=== PATIENT | female | born 1935 | race Caucasian/White ===

== ENCOUNTER → 2018-02-23 14:14 | Outpatient (CLI) | payer MEDICARE, BC, SELFPAY ==
--- NOTE | 2018-02-23 14:21 | DI.RAD.S_ITS ---
PROCEDURE: XR FOOT RT MIN 3V INDICATIONS: ankle pain TECHNIQUE: 3 views of the foot were acquired. COMPARISON: [facility], CR, XR ANKLE RT MIN 3V, 02/23/2018, 13:58. FINDINGS: Bones: No fractures or dislocations. No suspicious bony lesions. Plantar calcaneal spurring. First MTP joint degeneration. 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 Soft tissues: No tibiotalar joint effusion. Achilles tendon appears normal. IMPRESSION: Degenerative changes as above, most pronounced at the second toe PIP joint. Plantar calcaneal spur. Dictated by: Kavon Wilson M.D. on 02/23/2018 at 16:02 Approved by: Kavon Wilson M.D. on 02/23/2018 at 16:18
--- NOTE | 2018-02-23 14:21 | DI.RAD.S_ITS ---
PROCEDURE: XR ANKLE RT MIN 3V INDICATIONS: ankle pain TECHNIQUE: 3 views of the ankle were acquired. COMPARISON: None. FINDINGS: Bones: No fractures or dislocations. Ankle mortise is normally aligned. No suspicious bony lesions. Plantar calcaneal spur. There is also mild diffuse midfoot degenerative spurring. Soft tissues: No tibiotalar joint effusion. Achilles tendon appears normal. IMPRESSION: Plantar calcaneal spur. Dictated by: Kavon Wilson M.D. on 02/23/2018 at 16:18 Approved by: Kavon Wilson M.D. on 02/23/2018 at 16:19
[2018-02-23 15:39] LABS: Vitamin D 25 Hydroxy (D3) 61.4 ng/mL (30.0-100.0)
[2018-02-27 14:16] LABS: Ionized Calcium 5.6 mg/dL (4.8-5.6)
== END ==
PROVIDERS: Family Provider Family Medicine; PCP Family Medicine; Visit Provider Family Medicine
DX: M81.0 Age-related osteoporosis without current pathological fracture (principal); E67.8 Other specified hyperalimentation; M25.579 Pain in unspecified ankle and joints of unspecified foot
CPT/HCPCS: 73610; 73630; 82306; 82330

== ENCOUNTER → 2018-04-17 10:34 | Outpatient (CLI) | payer MEDICARE, BC, SELFPAY ==
[2018-04-17 11:49] LABS: BUN Creatinine Ratio 27.8 (6-22); Blood Urea Nitrogen 25 mg/dL (7-17); Calcium 10.5 mg/dL (8.4-10.2); Carbon Dioxide 36 mmol/L (22-32); Chloride 103 mmol/L (98-107); Cholesterol 148 mg/dL (140-199); Estimated Glomerular Filt Rate 59.9 mL/min (>60); Glucose 81 mg/dL (80-110); HDL Cholesterol 43 mg/dL (40-60); HEMOLYSIS < 15 (0-50); LDL Cholesterol Calculated 90 mg/dL (<100); Sodium 146 mmol/L (137-145); Triglycerides 73 mg/dL (35-150)
[2018-04-17 15:45] LABS: Microalbumin Urine Random 1.2 mg/dL (0-1.6)
== END ==
PROVIDERS: Family Provider Family Medicine; PCP Family Medicine; Visit Provider Family Medicine
DX: E21.3 Hyperparathyroidism, unspecified (principal); I10 Essential (primary) hypertension; I48.91 Unspecified atrial fibrillation; M81.0 Age-related osteoporosis without current pathological fracture
CPT/HCPCS: 36415; 80048; 80061; 82043; 82570

== ENCOUNTER → 2019-04-04 14:17 | Outpatient (CLI) | payer MEDICARE, BC, SELFPAY ==
[2019-04-04 15:09] LABS: Add Manual Diff / Slide Review NO; Basophils Absolute Auto 100 /uL (0-100); Eosinophils Absolute Auto 200 /uL (0-450); Eosinophils Percent Auto 2.9 % (2-4); Hematocrit 38.8 % (36-46); Lymphocytes Absolute Auto 1400 /uL (1100-4500); Lymphocytes Percent Auto 27.5 % (25-40); Mean Corpuscular HGB Conc 33.5 % (30-36); Mean Corpuscular Hemoglobin 29.6 PG (26-34); Mean Corpuscular Volume 88.4 fL (80-100); Monocytes Absolute Auto 600 /uL (0-900); Monocytes Percent Auto 11.2 % (3-14); Neutrophils Absolute Auto 3000 /uL (1500-7000); Neutrophils Percent Auto 57.4 % (50-75); Platelet Count 225 X10^3/uL (150-400); Red Cell Distribution Width 13.9 % (11.6-14.8); White Blood Cell Count 5.2 X10^3/uL (4.5-11.0)
[2019-04-04 15:19] LABS: Alanine Aminotransferase 24 IU/L (9-52); Albumin 4.7 g/dL (3.5-5.0); Albumin Globulin Ratio 1.4 (1.0-2.8); Alkaline Phosphatase 34 U/L (38-126); Aspartate Aminotransferase 38 IU/L (14-36); Bilirubin Total 0.6 mg/dL (0.2-1.3); Blood Urea Nitrogen 31 mg/dL (7-17); Calcium 10.7 mg/dL (8.4-10.2); Carbon Dioxide 32 mmol/L (22-32); Chloride 99 mmol/L (98-107); Globulin 3.3 g/dL (1.7-4.1); Glucose 98 mg/dL (80-110); HEMOLYSIS < 15 (0-50); Phosphorous 3.2 mg/dL (2.8-4.1); Potassium 3.8 mmol/L (3.4-5.1); Sodium 142 mmol/L (137-145)
[2019-04-04 19:56] LABS: Vitamin D 25 Hydroxy (D3) 63.4 ng/mL (30.0-100.0)
== END ==
PROVIDERS: PCP Family Medicine; Visit Provider Family Medicine
DX: E83.52 Hypercalcemia (principal); I10 Essential (primary) hypertension
CPT/HCPCS: 36415; 80053; 82306; 82330; 83970; 84100; 85025

== ENCOUNTER → 2019-04-25 14:46 | Outpatient (CLI) | payer MEDICARE, BC, SELFPAY ==
[2019-04-25 17:32] LABS: TSH w/ Reflex to FT4 2.93 uIU/mL (0.47-4.68)
[2019-04-29 15:45] LABS: 1 25 Dihydroxy Vitamin D 46 pg/mL (18-72)
== END ==
PROVIDERS: PCP Family Medicine; Visit Provider Family Medicine
DX: E83.52 Hypercalcemia (principal)
CPT/HCPCS: 36415; 82397; 82652; 84443

== ENCOUNTER → 2019-05-02 12:16 | Outpatient (CLI) | payer MEDICARE, BC, SELFPAY ==
[2019-05-02 15:18] LABS: Collection Time Urine 24 Hours; Creatinine 24 Hour Urine 446 mg/day (800-1800); Creatinine Urine Random 71.4 mg/dL; Total Volume Urine 625 mL
[2019-05-02 15:27] LABS: Calcium 24 Hour Urine 74 mg/day (100-300); Calcium Urine Random 11.8; Collection Time Urine 24 Hours; Total Volume Urine 625 mL
== END ==
PROVIDERS: PCP Family Medicine; Visit Provider Family Medicine
DX: E83.52 Hypercalcemia (principal)
CPT/HCPCS: 82340; 82570

== ENCOUNTER → 2019-10-04 13:08 | Outpatient (CLI) | payer MEDICARE, BC, SELFPAY ==
[2019-10-04 14:41] LABS: Alanine Aminotransferase 19 IU/L (<35); Albumin 4.6 g/dL (3.5-5.0); Albumin Globulin Ratio 1.5 (1.0-2.8); Alkaline Phosphatase 35 U/L (38-126); Aspartate Aminotransferase 40 IU/L (14-36); Bilirubin Total 0.5 mg/dL (0.2-1.3); Blood Urea Nitrogen 27 mg/dL (7-17); Calcium 10.8 mg/dL (8.4-10.2); Carbon Dioxide 29 mmol/L (22-32); Chloride 104 mmol/L (98-107); Globulin 3.1 g/dL (1.7-4.1); Glucose 87 mg/dL (80-110); HEMOLYSIS < 15 (0-50); Potassium 4.1 mmol/L (3.4-5.1); Sodium 143 mmol/L (137-145); Total Protein 7.7 g/dL (6.3-8.2)
[2019-10-04 15:25] LABS: Microalbumi Creatinin Ratio Ur 164.5 ug/mg CR (<30); Microalbumin Urine Random 7.9 mg/dL (0-1.6)
[2019-10-07 21:06] LABS: Albumin 4.5 g/dL (3.8-4.8); Alpha 1 Globulin 0.3 g/dL (0.2-0.3); Alpha 2 Globulin 0.6 g/dL (0.5-0.9); Beta 1 Globulin 0.5 g/dL (0.4-0.6); Protein, Total 7.2 g/dL (6.1-8.1)
[2019-10-08 15:14] LABS: Vitamin A 85 mcg/dL (38-98)
[2019-10-09 19:31] LABS: Albumin 66 %; Protein/ Creatinine Ratio 432 mg/g creat (21-161); Total Urine Protein 19 mg/dL (5-24); Urine Creatinine, Random 44 mg/dL (20-275)
== END ==
PROVIDERS: PCP Family Medicine; Referring Provider Family Medicine; Visit Provider Family Medicine
DX: M81.0 Age-related osteoporosis without current pathological fracture (principal); Z78.0 Asymptomatic menopausal state; I10 Essential (primary) hypertension; E21.3 Hyperparathyroidism, unspecified
CPT/HCPCS: 36415; 77080; 80053; 82043; 82570; 84155; 84156; 84165; 84166; 84590

== ENCOUNTER → 2020-03-20 14:39 | Outpatient (CLI) | payer MEDICARE, BC, SELFPAY ==
[2020-03-20 16:12] LABS: BUN Creatinine Ratio 28.2 (6-22); Blood Urea Nitrogen 33 mg/dL (7-17); Carbon Dioxide 31 mmol/L (22-32); Chloride 103 mmol/L (98-107); Estimated Glomerular Filt Rate 44.1 mL/min (>60); Glucose 88 mg/dL (80-110); HEMOLYSIS < 15 (0-50); Potassium 4.2 mmol/L (3.4-5.1); Sodium 142 mmol/L (137-145)
== END ==
PROVIDERS: PCP Family Medicine; Referring Provider Family Medicine; Visit Provider Family Medicine
DX: R60.0 Localized edema (principal)
CPT/HCPCS: 36415; 80048

== ENCOUNTER 2020-04-14 11:37 | Inpatient (IN) | payer MEDICARE, BC, SELFPAY ==
[2020-04-14] VITALS (38 sets, daily range): BP systolic 133–203; BP diastolic 65–97; PULSE 63–102; RESP 9–32; TEMP 36–36.8; O2SAT 92–100; BMI 22.5
--- NOTE | 2020-04-14 11:44 | DI.RAD.S_ITS ---
PROCEDURE: XR CHEST 1V INDICATIONS: chest pain TECHNIQUE: One view of the chest was acquired. COMPARISON: [facility], CT, PE STUDY (CTA CHEST), 09/20/2016, 13:02. [facility], CR, CHEST 1 VIEW, 04/06/2017, 20:57. [facility], CR, CHEST 1 VIEW, 09/19/2016, 16:37. FINDINGS: Surgical changes and devices: None. Lungs and pleura: Lungs are abnormal with what appears to be lung base atelectasis associated with a very large gas-filled presumed hiatal hernia behind the heart. No pleural effusions or pneumothorax. Mediastinum: Mediastinal contours appear normal. Heart size is normal. Bones and chest wall: No suspicious bony lesions. Overlying soft tissues appear unremarkable. IMPRESSION: A large gas-filled structure is present superimposed on the lower chest area bilaterally, measuring up to 17.6 cm transverse and 10.0 cm craniocaudad. By appearance this likely is a very large hiatal hernia that is gas filled. Presence or absence of volvulus or outlet obstruction is not established by this single frontal view. CT scanning may be warranted. Dictated by: Ulises Michel M.D. on 04/14/2020 at 13:10 Approved by: Ulises Michel M.D. on 04/14/2020 at 13:11
--- NOTE | 2020-04-14 11:52 | ED_ITS ---
HPI - Abdominal Pain General Chief Complaint: Abdominal Pain Stated Complaint: n/v and abd pain. Time Seen by Provider: 04/14/20 11:44 Source: patient and EMS Mode of arrival: EMS Limitations: no limitations History of Present Illness HPI narrative: Patient is 85-year-old female who presents with chest pain and nausea and vomiting. She said she was feeling well yesterday which to her son's house for dinner which she started not feeling well and feeling nauseated. She then continued to throw up multiple times. She has pain radiating into her chest and now around her left breast area. She does have a history of esophagus problem which she is not sure what it is but she says this feels different. She denies any shortness of breath. No prior history of coronary artery disease, but has had a NSTEMI in the past.She is noted to be quite hypertensive. Related Data Home Medications Medication Instructions Recorded Confirmed polyethylene glycol 3350 [Miralax] 17 gm PO QDAY PRN #0 05/03/11 04/14/20 alprazolam [Xanax] 0.25 mg PO BID PRN 04/14/20 04/14/20 furosemide 20 mg PO DAILY 04/14/20 04/14/20 Previous Rx's Medication Instructions Recorded Disabled Parking Permit ea TD QDAU #1 02/24/17 aspirin 81 mg tablet,delayed 81 mg PO DAILY #90 tab 02/23/18 release loratadine-pseudoephedrine ER 10 1 tab PO DAILY #90 tab 02/23/18 mg-240 mg tablet,extended [id number] multivitamin 1 tab PO DAILY #90 tab 02/23/18 sodium chloride 0.65 % nasal spray 1 spray NASAL ONCE #60 ml 02/23/18 aerosol fenofibrate micronized 67 mg 67 mg PO QDAY #90 tab 12/16/19 capsule losartan 50 mg tablet 25 mg PO DAILY #90 tab 01/14/20 omeprazole 40 mg capsule,delayed 40 mg PO QDAY #90 cap 01/21/20 release Allergies Allergy/AdvReac Type Severity Reaction Status Date / Time codeine [CODEINE] Allergy Mild vomiting Verified 04/14/20 12:04 formaldehyde [FORMALDEHYDE] Allergy Mild puffy Verified 04/14/20 12:04 eyes, blurred vision latex [LATEX] Allergy Mild rash Verified 04/14/20 12:04 morphine [MORPHINE] Allergy Mild vomiting Verified 04/14/20 12:04 Review of Systems Review of Systems ROS Unobtainable: All systems reviewed & are unremarkable except as noted in HPI and below Constitutional Constitutional: Denies chills, Denies fever(s), Denies lethargy and Denies weakness ENT Ears, Nose, Mouth, and Throat: Denies dizziness Cardiovascular Cardiovascular: Reports as per HPI, Reports chest pain, Denies diaphoresis, Denies syncope, Denies dyspnea and Denies dyspnea on exertion Respiratory Respiratory: Denies dyspnea and Denies dyspnea on exertion Gastrointestinal Gastrointestinal: Reports abdominal pain, Reports nausea and Reports vomiting Musculoskeletal Musculoskeletal: Denies back pain Integumentary/Breasts Skin/Breast: Denies pruritus, Denies erythema, Denies rash and Denies wounds Neurologic Neurologic: Denies dizziness, Denies syncope and Denies weakness 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) Osteoarthritis (Chronic ~1994) Osteopenia (Chronic ~1994) Osteoporosis (Chronic 2007) Parathyroid disease (Resolved 2007) Recurrent sinusitis (Chronic) Scarlet fever (Resolved) Scoliosis (Chronic) Shoulder pain (Chronic 2014) Tinnitus (Chronic) Vertigo (Chronic) Surgical History Anesthesia complication (Resolved) History of cataract removal with insertion of prosthetic lens (Resolved 2011) History of cataract removal with insertion of prosthetic lens (Resolved 2012) History of salpingectomy (Resolved) Status post breast reduction (Resolved 1999) Status post bunionectomy (Resolved 1992) Status post parathyroidectomy (Resolved 2007) Status post parathyroidectomy (Resolved 2009) Family History Brother Cancer Father No problems noted. Mother TB (tuberculosis) Social History household members: spouse Smoking Status: Never smoker Smoking Status: Never smoker alcohol intake frequency: 0-2 drinks per day Substance Use Type: does not use Exam Initial Vital Signs Initial Vital Signs: Vital Signs Temperature 98.3 F 04/14/20 11:40 Pulse Rate 91 H 04/14/20 11:40 Respiratory Rate 24 04/14/20 11:40 Blood Pressure 201/93 H 04/14/20 11:40 Pulse Oximetry 96 04/14/20 11:40 GENERAL: Thin elderly female no acute distress and in no acute distress. HEENT: Head atraumatic,EOMI, pupils reactive, face symmetric, moist mucous membranes CARDIOVASCULAR: Regular rate and rhythm without murmurs, rubs or gallops. Pain is not reproducible on left side of chest RESPIRATORY: Breath sounds equal bilaterally, no wheezes rales or rhonchi. ABDOMEN: Soft, mild epigastric tenderness no right upper quadrant pain EXTREMITIES: Normal range of motion, no clubbing or edema. Neurovascularly intact NEUROLOGICAL: Alert and oriented x4.Normal gait and speech. Cranial nerves II through XII grossly intact. SKIN: Warm, dry, no laceration, no petechiae, no rashes or lesions. Course Orders Ordered: ED Orders 04/14/20 11:44 XR chest 1V Stat 04/14/20 11:50 Complete Blood Count AUTO DIFF Stat Comprehensive Metabolic Panel Stat Lipase Stat Partial Thromboplastin Time Stat Prothrombin Time INR Stat Troponin & CK Cardiac Panel Stat 04/14/20 11:52 US abdomen limited Stat 04/14/20 11:54 EKG-12 Lead Stat 04/14/20 13:01 CT angio chest abdomen pelvis Stat 04/14/20 13:54 Troponin I Stat Benzocaine (Cepacol Lozenge) 1 each PO PRN PRN PRN Reason: Sore Throat Fentanyl (Sublimaze) 0 mcg IV Q5M PRN PRN Reason: Pain, Moderate (4-6) Hydromorphone HCl (Dilaudid) 0.5 mg IV Q6HR PRN PRN Reason: Pain, Moderate (4-6) Sodium Chloride (Normal Saline 0.9%) 1,000 mls @ 150 mls/hr IV CONT DARY Last Infusion: 04/14/20 15:03 Dose: 0 mls/hr Documented by: Admin: 04/14/20 12:50 Dose: 150 mls/hr Documented by: HECTOR Sodium Chloride (Normal Saline 0.9%) 1,000 mls @ 100 mls/hr IV CONT DARY Lactated Ringer's (Lactated Ringers) 1,000 mls @ 42 mls/hr IV CONT DARY Last Admin: 04/14/20 15:23 Dose: 42 mls/hr Documented by: DIONICIO Naloxone HCl (Narcan) 0.2 mg IV Q2MIN PRN PRN Reason: Opiate Reversal Ondansetron HCl (Zofran) 4 mg IV Q8HR PRN PRN Reason: Nausea And Vomiting Ondansetron HCl (Zofran) 4 mg IV NOW PRN PRN Reason: Nausea And Vomiting Discontinued Medications Hydromorphone HCl (Dilaudid) 0.5 mg IV NOW ONE Stop: 04/14/20 12:36 Last Admin: 04/14/20 12:49 Dose: 0.5 mg Documented by: HECTOR Hydromorphone HCl (Dilaudid) 0.5 mg IV NOW ONE Stop: 04/14/20 14:38 Last Admin: 04/14/20 14:46 Dose: 0.5 mg Documented by: SHAI Piperacillin/Tazobactam/Dextrose (Zosyn) 3.375 gm in 50 mls @ 100 mls/hr IV NOW ONE Stop: 04/14/20 15:35 Metoclopramide HCl (Reglan) 5 mg IV NOW ONE Stop: 04/14/20 13:03 Last Admin: 04/14/20 13:22 Dose: 5 mg Documented by: ABDI Nitroglycerin (Nitrostat) 0.4 mg SL NOW ONE Stop: 04/14/20 11:45 Last Admin: 04/14/20 12:05 Dose: 0.4 mg Documented by: HECTOR Ondansetron HCl (Zofran) 4 mg IV NOW ONE Stop: 04/14/20 12:32 Last Admin: 04/14/20 12:50 Dose: 4 mg Documented by: HECTOR Pantoprazole Sodium (Protonix) 40 mg IV NOW ONE Stop: 04/14/20 13:03 Last Admin: 04/14/20 13:22 Dose: 40 mg Documented by: ABDI Vital Signs Vital signs: Vital Signs - 8 hr 04/14/20 11:40 04/14/20 11:41 04/14/20 11:45 Temperature 98.3 F Pulse Rate 91 H 91 H 90 Respiratory Rate 24 16 15 Blood Pressure 203/93 H 201/93 H Pulse Oximetry 96 97 96 04/14/20 12:00 04/14/20 12:05 04/14/20 12:08 Temperature Pulse Rate 91 H 93 H 94 H Respiratory Rate 29 H 31 H Blood Pressure 202/97 H 202/97 H 199/94 H Pulse Oximetry 97 99 04/14/20 12:15 04/14/20 12:27 04/14/20 12:30 Temperature Pulse Rate 91 H 92 H 91 H Respiratory Rate 26 H 30 H 27 H Blood Pressure 202/89 H 178/76 H 193/86 H Pulse Oximetry 97 98 97 04/14/20 12:45 04/14/20 13:00 04/14/20 13:30 Temperature Pulse Rate 86 91 H 86 Respiratory Rate 22 24 30 H Blood Pressure 192/90 H 171/68 H Pulse Oximetry 97 96 96 04/14/20 14:00 04/14/20 14:29 04/14/20 14:30 Temperature Pulse Rate 98 H 102 H 101 H Respiratory Rate 19 19 19 Blood Pressure 195/89 H 177/97 H Pulse Oximetry 97 100 97 MDM - Abdominal Pain Lab Data Attestation: I reviewed the patient's lab results. Result diagrams: 04/14/20 11:50 04/14/20 11:50 Labs: Lab Results 04/14/20 04/14/20 04/14/20 Range/Units 11:50 11:50 11:50 WBC 10.6 (4.5-11.0) X10^3/uL RBC 4.36 (4.0-5.2) X10^6/uL Hgb 12.8 (12.0-16.0) g/dL Hct 38.9 (36-46) % MCV 89.3 (80-100) fL MCH 29.3 (26-34) PG MCHC 32.8 (30-36) % RDW 13.9 (11.6-14.8) % Plt Count 214 (150-400) X10^3/uL Neut % (Auto) 89.5 H (50-75) % Lymph % (Auto) 6.4 L (25-40) % [place] % (Auto) 3.8 (3-14) % Eos % (Auto) 0.1 L (2-4) % Baso % (Auto) 0.2 (0-2) % Neut # (Auto) 9500 H (4012-2655) /uL Lymph # (Auto) 700 L (8458-9070) /uL [place] # (Auto) 400 (0-900) /uL Eos # (Auto) 0 (0-450) /uL Baso # (Auto) 0 (0-100) /uL PT 11.9 (10.1-12.7) SECONDS INR 1.0 (0.9-1.3) APTT 32 (26.4-36.2) SECONDS Sodium 144 (137-145) mmol/L Potassium 3.2 L (3.4-5.1) mmol/L Chloride 104 (98-107) mmol/L Carbon Dioxide 28 (22-32) mmol/L BUN 23 H (7-17) mg/dL Creatinine 0.72 (0.52-1.04) mg/dL Estimated GFR > 60.0 (>60) mL/min BUN/Creatinine Ratio 31.9 H (6-22) Glucose 152 H (80-110) mg/dL Calcium 11.1 H (8.4-10.2) mg/dL Total Bilirubin 0.7 (0.2-1.3) mg/dL AST 44 H (14-36) IU/L ALT 23 (<35) IU/L Alkaline Phosphatase 51 (38-126) U/L Total Creatine Kinase 90 (30-135) U/L CK-MB (CK-2) TNP CK-MB (CK-2) Rel Index TNP Troponin I 0.017 (0.01-0.034) ng/mL Total Protein 8.8 H (6.3-8.2) g/dL Albumin 5.2 H (3.5-5.0) g/dL Globulin 3.6 (1.7-4.1) g/dL Albumin/Globulin Ratio 1.4 (1.0-2.8) Lipase 146 (23-300) U/L COVID-19 PCR (Negative) 04/14/20 04/14/20 Range/Units 13:50 13:54 WBC (4.5-11.0) X10^3/uL RBC (4.0-5.2) X10^6/uL Hgb (12.0-16.0) g/dL Hct (36-46) % MCV (80-100) fL MCH (26-34) PG MCHC (30-36) % RDW (11.6-14.8) % Plt Count (150-400) X10^3/uL Neut % (Auto) (50-75) % Lymph % (Auto) (25-40) % [place] % (Auto) (3-14) % Eos % (Auto) (2-4) % Baso % (Auto) (0-2) % Neut # (Auto) (1722-8625) /uL Lymph # (Auto) (0593-3565) /uL [place] # (Auto) (0-900) /uL Eos # (Auto) (0-450) /uL Baso # (Auto) (0-100) /uL PT (10.1-12.7) SECONDS INR (0.9-1.3) APTT (26.4-36.2) SECONDS Sodium (137-145) mmol/L Potassium (3.4-5.1) mmol/L Chloride (98-107) mmol/L Carbon Dioxide (22-32) mmol/L BUN (7-17) mg/dL Creatinine (0.52-1.04) mg/dL Estimated GFR (>60) mL/min BUN/Creatinine Ratio (6-22) Glucose (80-110) mg/dL Calcium (8.4-10.2) mg/dL Total Bilirubin (0.2-1.3) mg/dL AST (14-36) IU/L ALT (<35) IU/L Alkaline Phosphatase (38-126) U/L Total Creatine Kinase (30-135) U/L CK-MB (CK-2) CK-MB (CK-2) Rel Index Troponin I 0.018 (0.01-0.034) ng/mL Total Protein (6.3-8.2) g/dL Albumin (3.5-5.0) g/dL Globulin (1.7-4.1) g/dL Albumin/Globulin Ratio (1.0-2.8) Lipase (23-300) U/L COVID-19 PCR Negative (Negative) Point of care testing: Urine Dip Bedside Urine Glucose Negative Bedside Urine Bilirubin - Negative Bedside Urine Ketone - Negative Urine Specific Bessie 1.005 Bedside Urine Occult Blood +/- Bedside Urine pH 8.0 Bedside Urine Protein + 30 Bedside Urine Urobilinogen - Negative Bedside Urine Nitrite - Negative Bedside Urine Leukocytes - Negative Esterase Imaging Data CT scan - chest: Radiologist's Impression: PROCEDURE: CT ANGIO CHEST ABDOMEN PELVIS INDICATIONS: chest pain vomiting, HTN TECHNIQUE: Precontrast 5 mm thick sections acquired from the lung apices to the iliac crests. After the administration of intravenous contrast, 2.5 mm thick sections again acquired from the lung apices to the iliac crests. Maximum intensity projection (MIP) oblique s agittal and coronal reformats were then acquired. For radiation dose reduction, the following was used: automated exposure control. COMPARISON: [facility], CT, ABDOMEN/PELVIS WITH CONTRAST, 09/19/2016, 16:18. FINDINGS: Image quality: Excellent. AORTA and its attachments: The thoracic aorta is normal in caliber without dissection. There is classic three-vessel arch anatomy. Great vessel origins are widely patent. The descending thoracic aorta is of normal caliber. The descending thoracic aorta and the abdominal aorta are tortuous. They are not aneurysmal. There is no dissection or stenosis. The celiac, SMA, and CHRIS are patent. There is a mild proximal right renal artery stenosis. The left renal arteries patent. CHEST: Lungs and pleura: No acute airspace opacities. No pleural effusions or pneumothorax. Central and peripheral airways are patent and normal in caliber. Mediastinum: Heart size is normal. No pericardial effusion. No mediastinal or hilar adenopathy by size criteria. Central pulmonary arteries are normal in size. Esophagus is dilated and filled with air. There is a very large hiatal hernia with a markedly distended stomach filled with debris both above and below the hernia. The stomach empties into the duodenum of above the diaphragm. 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 Bones and chest wall: No axillary adenopathy by size criteria. Thyroid gland is unremarkable as visualized. . No suspicious bony lesions. No vertebral body compression fractures. ABDOMEN: Vasculature: Celiac trunk and mesenteric arteries are patent. Renal arteries are also patent. Solid organs: Liver is normal in size and enhancement. Numerous bilateral hepatic cysts are again noted. Gallbladder is unremarkable. Biliary system is non dilated. Pancreas enhances normally. Spleen is normal in size and enhancement. No adrenal nodules. Both kidneys are normal in size and enhancement, without hydronephrosis. Peritoneum and bowel: No free fluid or air. There is a very large hiatal hernia with a markedly distended stomach filled with debris both above and below the hernia. The stomach empties into the duodenum of above the diaphragm. 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 Bowel loops are normal in caliber and wall thickness. Nodes and vessels: No retroperitoneal or mesenteric adenopathy by size criteria. Inferior vena cava is normal in morphology. Miscellaneous: No ventral hernias. PELVIS: Genitourinary: Bladder wall thickness is normal. Miscellaneous: No inguinal hernias or adenopathy. No ventral hernias. Question uterine obstruction at the level of the cervix with chronic inspissated fluid and debris and calcification in the endometrial cavity. Alternatively, this may potentially represent an endometrial carcinoma. The fluid-filled structure and calcifications previously measured 2.2 x 3.0 cm. It currently measures 2.6 x 3.6 cm. Bones: No suspicious bony lesions. Numerous chronic thoracic and lumbar compression fractures. IMPRESSION: 1. There is a very large hiatal hernia with a markedly distended stomach filled with debris both above and below the hernia. Organo-axial gastric volvulus is present. The stomach empties into the duodenum above the diaphragm. 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 2. Question obstruction at the level of the cervix with fluid and debris in the endometrial cavity. Alternatively, this may potentially represent a slowly growing endometrial carcinoma. Dictated by: Willam Howard M.D. on 04/14/2020 at 13:25 Approved by: Willam Howard M.D. on 04/14/2020 at 13:39 US - abdomen: Radiologist's Impression: PROCEDURE: US ABDOMEN LIMITED INDICATIONS: RIGHT UPPER QUADRANT PAIN TECHNIQUE: Real-time focused scanning was performed of the abdomen, with image documentation. COMPARISON: [facility], CT, ABDOMEN/PELVIS WITH CONTRAST, 09/19/2016, 16:18. FINDINGS: Somewhat limited by body habitus. Multiple hepatic cysts are noted, previously also seen on CT scanning from September of 2016. The gallbladder appears normal, the bile ducts are not distended measuring up to 3 mm. The pancreas is poorly seen due to bowel gas. IMPRESSION: No acute disease found over the right upper quadrant evaluation. Scattered hepatic cysts, previously present on CT scanning from 2016. No gallbladder disease is found, no biliary distention is identified. Dictated by: Ulises Michel M.D. on 04/14/2020 at 12:31 Approved by: Ulises Michel M.D. on 04/14/2020 at 12:33 ECG Data Attestation: I personally reviewed and interpreted this ECG as follows: Prior ECG tracings: available for review Interpretation: Normal sinus rhythm rate 91 p.r. interval 181 QRS [address] changes similar to prior EKG in 2017 MDM Narrative Medical decision making narrative: Patient having some left-sided chest pain noted to be quite hypertensive on arrival. She has some epigastric pain ultrasound in right upper quadrant is negative blood work is overall reassuring, except with potassium of 3.2. Persistently having pain and nausea. Will get CTA to rule out any dissection. Gastric volvulus and large hiatal hernia found on CT. A surgery Dr. Gilmore is in the ED to seen evaluate patient. Patient going to OR for repair. Discharge Plan Departure Patient Disposition: Admitted As Inpatient Clinical Impression: Acute gastric volvulus, Esophageal hiatal hernia Discharge Date/Time: 04/14/20 15:05 Admit Date/Time: 04/14/20 14:38 Admit Provider: Jose Eduardo Gilmore
[2020-04-14 11:57] LABS: Add Manual Diff / Slide Review NO; Basophils Absolute Auto 0 /uL (0-100); Basophils Percent Auto 0.2 % (0-2); Eosinophils Absolute Auto 0 /uL (0-450); Eosinophils Percent Auto 0.1 % (2-4); Hematocrit 38.9 % (36-46); Hemoglobin 12.8 g/dL (12.0-16.0); Lymphocytes Absolute Auto 700 /uL (1100-4500); Lymphocytes Percent Auto 6.4 % (25-40); Mean Corpuscular HGB Conc 32.8 % (30-36); Mean Corpuscular Hemoglobin 29.3 PG (26-34); Mean Corpuscular Volume 89.3 fL (80-100); Monocytes Absolute Auto 400 /uL (0-900); Monocytes Percent Auto 3.8 % (3-14); Neutrophils Absolute Auto 9500 /uL (1500-7000); Neutrophils Percent Auto 89.5 % (50-75); Platelet Count 214 X10^3/uL (150-400); Red Blood Cell Count 4.36 X10^6/uL (4.0-5.2); Red Cell Distribution Width 13.9 % (11.6-14.8); White Blood Cell Count 10.6 X10^3/uL (4.5-11.0)
[2020-04-14] MEDS: NITROGLYCERIN 0.4 MG SL TAB SL (12:05)
[2020-04-14 12:09] LABS: Alanine Aminotransferase 23 IU/L (<35); Albumin 5.2 g/dL (3.5-5.0); Albumin Globulin Ratio 1.4 (1.0-2.8); Alkaline Phosphatase 51 U/L (38-126); Aspartate Aminotransferase 44 IU/L (14-36); BUN Creatinine Ratio 31.9 (6-22); Bilirubin Total 0.7 mg/dL (0.2-1.3); Blood Urea Nitrogen 23 mg/dL (7-17); Calcium 11.1 mg/dL (8.4-10.2); Carbon Dioxide 28 mmol/L (22-32); Chloride 104 mmol/L (98-107); Creatine Kinase 90 U/L (30-135); Estimated Glomerular Filt Rate > 60.0 mL/min (>60); Globulin 3.6 g/dL (1.7-4.1); Glucose 152 mg/dL (80-110); HEMOLYSIS 35 (0-50); Lipase 146 U/L (23-300); Potassium 3.2 mmol/L (3.4-5.1); Prothrombin Time 11.9 SECONDS (10.1-12.7); Sodium 144 mmol/L (137-145); Total Protein 8.8 g/dL (6.3-8.2)
[2020-04-14 12:12] LABS: PTT Partial Thromboplastin Tim 32 SECONDS (26.4-36.2)
[2020-04-14 12:21] LABS: Troponin I 0.017 ng/mL (0.01-0.034)
--- NOTE | 2020-04-14 12:30 | PC.NURSE ---
no change in pain after nitro, verbal order given by Dr. thomson at this time for 2mg Morphine IV and 4mg Zofran IV.
--- NOTE | 2020-04-14 12:35 | PC.NURSE ---
Verbal order change from Dr. Felipe, no morphine due to adverse effect of vomiting. Give 0.5mg dilaudid instead.
[2020-04-14] MEDS: HYDROMORPHONE 0.5 MG INJ IV ×3 (12:49→19:18)
[2020-04-14] MEDS: SODIUM CHLORIDE 0.9% 1,000 ML 150 ML IV (12:50)
[2020-04-14] MEDS: ONDANSETRON 4 MG/2 ML INJ IV (12:50)
--- NOTE | 2020-04-14 13:01 | DI.CT.S_ITS ---
PROCEDURE: CT ANGIO CHEST ABDOMEN PELVIS INDICATIONS: chest pain vomiting, HTN TECHNIQUE: Precontrast 5 mm thick sections acquired from the lung apices to the iliac crests. After the administration of intravenous contrast, 2.5 mm thick sections again acquired from the lung apices to the iliac crests. Maximum intensity projection (MIP) oblique sagittal and coronal reformats were then acquired. For radiation dose reduction, the following was used: automated exposure control. COMPARISON: [facility], CT, ABDOMEN/PELVIS WITH CONTRAST, 09/19/2016, 16:18. FINDINGS: Image quality: Excellent. AORTA and its attachments: The thoracic aorta is normal in caliber without dissection. There is classic three-vessel arch anatomy. Great vessel origins are widely patent. The descending thoracic aorta is of normal caliber. The descending thoracic aorta and the abdominal aorta are tortuous. They are not aneurysmal. There is no dissection or stenosis. The celiac, SMA, and CHRIS are patent. There is a mild proximal right renal artery stenosis. The left renal arteries patent. CHEST: Lungs and pleura: No acute airspace opacities. No pleural effusions or pneumothorax. Central and peripheral airways are patent and normal in caliber. Mediastinum: Heart size is normal. No pericardial effusion. No mediastinal or hilar adenopathy by size criteria. Central pulmonary arteries are normal in size. Esophagus is dilated and filled with air. There is a very large hiatal hernia with a markedly distended stomach filled with debris both above and below the hernia. The stomach empties into the duodenum of above the diaphragm. 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 Bones and chest wall: No axillary adenopathy by size criteria. Thyroid gland is unremarkable as visualized. . No suspicious bony lesions. No vertebral body compression fractures. ABDOMEN: Vasculature: Celiac trunk and mesenteric arteries are patent. Renal arteries are also patent. Solid organs: Liver is normal in size and enhancement. Numerous bilateral hepatic cysts are again noted. Gallbladder is unremarkable. Biliary system is non dilated. Pancreas enhances normally. Spleen is normal in size and enhancement. No adrenal nodules. Both kidneys are normal in size and enhancement, without hydronephrosis. Peritoneum and bowel: No free fluid or air. There is a very large hiatal hernia with a markedly distended stomach filled with debris both above and below the hernia. The stomach empties into the duodenum of above the diaphragm. 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 Bowel loops are normal in caliber and wall thickness. Nodes and vessels: No retroperitoneal or mesenteric adenopathy by size criteria. Inferior vena cava is normal in morphology. Miscellaneous: No ventral hernias. PELVIS: Genitourinary: Bladder wall thickness is normal. Miscellaneous: No inguinal hernias or adenopathy. No ventral hernias. Question uterine obstruction at the level of the cervix with chronic inspissated fluid and debris and calcification in the endometrial cavity. Alternatively, this may potentially represent an endometrial carcinoma. The fluid-filled structure and calcifications previously measured 2.2 x 3.0 cm. It currently measures 2.6 x 3.6 cm. Bones: No suspicious bony lesions. Numerous chronic thoracic and lumbar compression fractures. IMPRESSION: 1. There is a very large hiatal hernia with a markedly distended stomach filled with debris both above and below the hernia. Organo-axial gastric volvulus is present. The stomach empties into the duodenum above the diaphragm. 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 2. Question obstruction at the level of the cervix with fluid and debris in the endometrial cavity. Alternatively, this may potentially represent a slowly growing endometrial carcinoma. Dictated by: Willam Howard M.D. on 04/14/2020 at 13:25 Approved by: Willam Howard M.D. on 04/14/2020 at 13:39
[2020-04-14] MEDS: METOCLOPRAMIDE 10 MG/2 ML INJ 5 MG IV (13:22)
[2020-04-14] MEDS: PANTOPRAZOLE 40 MG VIAL IV (13:22)
[2020-04-14 14:36] LABS: Troponin I 0.018 ng/mL (0.01-0.034)
--- NOTE | 2020-04-14 14:49 | PM.HP.1 ---
History of Present Illness History of Present Illness Date Patient Seen: 04/14/20 Time Patient Seen: 14:50 Chief complaint: n/v and abd pain. Narrative: 85-year-old woman seen in the emergency room in consultation for a gastric volvulus. She has a known large hiatal hernia that is been present for decades however in the past several days she has had worsening of her nausea and abdominal pain. Today she presented to the emergency room with acute chest pain underwent CT chest abdomen pelvis which demonstrates gastric volvulus with organoaxial rotation. She is hemodynamically stable. She is having profuse vomiting. Medical history significant for NSTEMI 3 years ago, hypertension, CHF she is not followed by cardiology. No prior chest or abdominal surgery. She is not anticoagulated. 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) Osteoarthritis (Chronic ~1994) Osteopenia (Chronic ~1994) Osteoporosis (Chronic 2007) Parathyroid disease (Resolved 2007) Recurrent sinusitis (Chronic) Scarlet fever (Resolved) Scoliosis (Chronic) Shoulder pain (Chronic 2014) Tinnitus (Chronic) Vertigo (Chronic) Surgical History Anesthesia complication (Resolved) History of cataract removal with insertion of prosthetic lens (Resolved 2011) History of cataract removal with insertion of prosthetic lens (Resolved 2012) History of salpingectomy (Resolved) Status post breast reduction (Resolved 1999) Status post bunionectomy (Resolved 1992) Status post parathyroidectomy (Resolved 2007) Status post parathyroidectomy (Resolved 2009) Family & Social History Family History Brother Cancer Father No problems noted. Mother TB (tuberculosis) Safety & Behavioral: Feels Safe in Current Yes Environment Been Physically Hurt or No Threatened By a Person Tobacco & Substance use: Smoking Status Never smoker alcohol intake frequency 0-2 drinks per day Substance Use Type does not use Meds Home Medications and Allergies Home Medications Medication Instructions Recorded Confirmed Type polyethylene glycol 3350 [Miralax] 17 gm PO QDAY #0 05/03/11 03/25/20 History Disabled Parking Permit ea TD QDAU #1 02/24/17 03/25/20 Rx aspirin 81 mg tablet,delayed 81 mg PO DAILY #90 tab 02/23/18 03/25/20 Rx release loratadine-pseudoephedrine ER 10 1 tab PO DAILY #90 tab 02/23/18 03/25/20 Rx mg-240 mg tablet,extended [id number] multivitamin 1 tab PO DAILY #90 tab 02/23/18 03/25/20 Rx sodium chloride 0.65 % nasal spray 1 spray NASAL ONCE #60 ml 02/23/18 03/25/20 Rx aerosol fenofibrate micronized 67 mg 67 mg PO QDAY #90 tab 12/16/19 03/25/20 Rx capsule losartan 50 mg tablet 25 mg PO DAILY #90 tab 01/14/20 03/25/20 Rx omeprazole 40 mg capsule,delayed 40 mg PO QDAY #90 cap 01/21/20 03/25/20 Rx release alprazolam [Xanax] 0.25 mg PO BID PRN 04/14/20 04/14/20 History furosemide 20 mg PO DAILY 04/14/20 04/14/20 History Allergies Allergy/AdvReac Type Severity Reaction Status Date / Time codeine [CODEINE] Allergy Mild vomiting Verified 04/14/20 12:04 formaldehyde [FORMALDEHYDE] Allergy Mild puffy Verified 04/14/20 12:04 eyes, blurred vision latex [LATEX] Allergy Mild rash Verified 04/14/20 12:04 morphine [MORPHINE] Allergy Mild vomiting Verified 04/14/20 12:04 Review of Systems Review of Systems Narrative: A 10 point review of systems is negative except as noted in the HPI Exam Vital Signs (past 8 hours): - 04/14/20 11:40 04/14/20 11:41 04/14/20 11:45 Temperature 98.3 F Pulse Rate 91 H 91 H 90 Respiratory Rate 24 16 15 Blood Pressure 203/93 H 201/93 H Pulse Oximetry 96 97 96 04/14/20 12:00 04/14/20 12:05 04/14/20 12:08 Temperature Pulse Rate 91 H 93 H 94 H Respiratory Rate 29 H 31 H Blood Pressure 202/97 H 202/97 H 199/94 H Pulse Oximetry 97 99 04/14/20 12:15 04/14/20 12:27 04/14/20 12:30 Temperature Pulse Rate 91 H 92 H 91 H Respiratory Rate 26 H 30 H 27 H Blood Pressure 202/89 H 178/76 H 193/86 H Pulse Oximetry 97 98 97 04/14/20 12:45 04/14/20 13:00 04/14/20 13:30 Temperature Pulse Rate 86 91 H 86 Respiratory Rate 22 24 30 H Blood Pressure 192/90 H 171/68 H Pulse Oximetry 97 96 96 04/14/20 14:00 Temperature Pulse Rate 98 H Respiratory Rate 19 Blood Pressure Pulse Oximetry 97 Oxygen Delivery Method Room Air Narrative Exam Narrative: General-, thin elderly female in acute distress HEENT-moist mucous membranes, no scleral icterus Neck-supple, no lymphadenopathy Chest- non labored respirations Cardiac-regular rate no peripheral edema Abdomen-soft, nontender, non distended Extremities-warm, well perfused Neurological-alert and oriented, no focal deficits Objective Labs Result Diagrams: 04/14/20 11:50 04/14/20 11:50 Labs: Laboratory Results - last 24 hr 04/14/20 04/14/20 04/14/20 11:50 11:50 11:50 WBC 10.6 RBC 4.36 Hgb 12.8 Hct 38.9 MCV 89.3 MCH 29.3 MCHC 32.8 RDW 13.9 Plt Count 214 Neut % (Auto) 89.5 H Lymph % (Auto) 6.4 L [place] % (Auto) 3.8 Eos % (Auto) 0.1 L Baso % (Auto) 0.2 Neut # (Auto) 9500 H Lymph # (Auto) 700 L [place] # (Auto) 400 Eos # (Auto) 0 Baso # (Auto) 0 PT 11.9 INR 1.0 APTT 32 Sodium 144 Potassium 3.2 L Chloride 104 Carbon Dioxide 28 BUN 23 H Creatinine 0.72 Estimated GFR > 60.0 BUN/Creatinine Ratio 31.9 H Glucose 152 H Calcium 11.1 H Total Bilirubin 0.7 AST 44 H ALT 23 Alkaline Phosphatase 51 Total Creatine Kinase 90 CK-MB (CK-2) TNP CK-MB (CK-2) Rel Index TNP Troponin I 0.017 Total Protein 8.8 H Albumin 5.2 H Globulin 3.6 Albumin/Globulin Ratio 1.4 Lipase 146 04/14/20 13:54 WBC RBC Hgb Hct MCV MCH MCHC RDW Plt Count Neut % (Auto) Lymph % (Auto) [place] % (Auto) Eos % (Auto) Baso % (Auto) Neut # (Auto) Lymph # (Auto) [place] # (Auto) Eos # (Auto) Baso # (Auto) PT INR APTT Sodium Potassium Chloride Carbon Dioxide BUN Creatinine Estimated GFR BUN/Creatinine Ratio Glucose Calcium Total Bilirubin AST ALT Alkaline Phosphatase Total Creatine Kinase CK-MB (CK-2) CK-MB (CK-2) Rel Index Troponin I 0.018 Total Protein Albumin Globulin Albumin/Globulin Ratio Lipase Assessment & Plan Assessment and plan (1) Organoaxial gastric volvulus: Problem details: 85-year-old female with a chronic large hiatal hernia now with acute organoaxial gastric volvulus. I had a long discussion with the patient and her [id number]. I explained to them that she has the majority of her stomach within her chest and that her stomach is acutely twisted on itself. I explained that the emergent issue is the gastric volvulus and without detorsion and reduction there is a risk of gastric ischemia and necrosis. I recommended that she undergo emergent repair and I gave her the option of having the operation performed here or going to [place] for thoracic surgeon. Her preference is to remain here. I told her that we would perform an open hiatal hernia repair with gastropexy using a gastrostomy tube. We discussed the operative risks including , myocardial infarction, stroke, hemorrhage, infection, damage to surrounding structures, recurrence of hernia. Her questions have been answered she is in agreement with this plan will proceed to the operating room. Status: Acute
[2020-04-14 15:00] LABS: COVID19 -Nasal RAPID Negative (Negative)
[2020-04-14] MEDS: LACTATED RINGERS 1,000 ML 42 ML IV ×2 (15:23→17:17)
[2020-04-14] MEDS: PIPERACILLIN-TAZO 3.375 GM/50 ML FROZ.PIGGY IV (15:46)
--- NOTE | 2020-04-14 16:43 | SUR.OPER ---
Supine on padded OR bed, head on pillow, arms secured on padded arm boards at <90 degrees abduction, gel padding under arms to wrists bilaterally, legs uncrossed, safety belt at thigh, gel pad under right thigh over miramontes tubing, tape over blanket over lower legs.
[2020-04-14] MEDS: fentaNYL 100 MCG/2 ML INJ IV ×2 (18:09→18:25)
--- NOTE | 2020-04-14 18:16 | DI.RAD.S_ITS ---
PROCEDURE: XR CHEST 1V INDICATIONS: sp hiatal hernia repair r/o pneumothorax TECHNIQUE: One view of the chest was acquired. COMPARISON: [facility], KAYLIE, XR CHEST 1V, 04/14/2020, 12:49. [facility], KAYLIE, CHEST 1 VIEW, 04/06/2017, 20:57. FINDINGS: Surgical changes and devices: None. Lungs and pleura: Lungs are abnormal with large lung volumes and flattening of the diaphragms. No pleural effusions or pneumothorax. Mediastinum: Mediastinal contours appear improved, with resolution of the prominent degree of gas distention of the presumed large hiatal hernia behind the heart.. Heart size is normal. Bones and chest wall: No suspicious bony lesions. Overlying soft tissues appear unremarkable. IMPRESSION: Prior gas distension of the hiatal hernia previously seen by CT scanning behind the heart. Current study shows a much improved mediastinal contour, and no pleural effusion or evidence of pneumothorax or pneumomediastinum. Large lung volumes, flattening of the diaphragms, possible superimposed COPD. Dictated by: Ulises Michel M.D. on 04/14/2020 at 18:43 Approved by: Ulises Michel M.D. on 04/14/2020 at 18:45
--- NOTE | 2020-04-14 18:26 | P.OP_ITS ---
Operative Date/Time/Diagnoses Date of procedure: 04/14/20 Time of procedure: 18:27 Pre-op diagnosis: Gastric volvulus Post-op diagnosis: same Procedure & Clinicians Procedure: Exploratory laparotomy Hiatal hernia repair Gastrostomy Same procedure as scheduled: Yes Indications: 85-year-old woman with a chronic hiatal hernia presents with acute organic axial gastric volvulus. Surgeon: Jose Eduardo Gilmore Atmospheric Physicist: Lee Franco Anesthesia Type: General Operative Notes Findings: Very large viable stomach, hiatal hernia defect Specimen(s): none sent Estimated Blood Loss (mL): 50 Procedure in detail: Patient was brought to the operating room and placed on table. Bilateral lower extremity compression devices were applied. General anesthesia was induced she was intubated with an endotracheal tube. She received 3.375 g of Zosyn prior to skin incision. She was prepped and draped in sterile fashion. Time-out was performed. An upper midline incision was made with a knife and the subcutaneous tissues were divided with electrocautery. The falciform ligament was resected using the LigaSure. The Bookwalter retractor was placed. Left lobe of the liver was retracted away and the stomach was carefully reduced out of the chest. At this point a nasogastric tube could be advanced into the stomach and its position palpated within the stomach and the esophagus. Working on the lesser curvature of the stomach the pars flacida was carefuly incisied and the right leeann was approached. The right leeann was then carefully dissected off of the gastroesophageal junction. With the right leeann free its anterior and posterior leaflets were identified. With blunt dissection the stomach was dissected from its associated hernia sac and was encircled at the gastroesophageal junction and a Lockwood was then placed. The left leeann was exposed and both the anterior and posterior leaflets were clearly identifiable. The aorta was palpable posteriorly and protected out of harm's way. With the stomach entirely retracted into the abdomen the posterior leaflets of the left and right leeann were reapproximated using interrupted Ethibond suture x 2 to close to diaphramatic defect. Next the anterior leaflets left and right were reapproximated again using interrupted Ethibond suture x2. The closure then diaphragm was done in a manner such that no one finger could comfortably passed between the diaphragm and the esophagus. Next a gastrostomy tube was fashioned. One concentric ring of pursestring using 2 0 silk was fashioned in the proximal aspect of the stomach towards the greater curvature.. Four-quadrant pexy sutures were then placed around the gastrostomy tube and into the anterior abdominal wall in all 4 quadrants. A incision was made in the left upper quadrant through the skin subcutaneous tissue and then the gastrostomy tube 22 Setswana was then placed through the abdominal wall and a gastrostomy was made in the stomach within the pursestring. The tube was advanced into the stomach and then the pursestring was seured. The stomach was then pexyied to the anterior abdominal wall using the silk sutures. Two additional silk sutures were used to pexy the fundus of the stomach to the anterior abdominal wall. Hemostasis was checked and satisfied with this the abdomen was closed. I raised bilateral skin flaps such that the fascia could be closed without tension. The fascia was closed in a running fashion using 0 point PDS suture the subcutaneous tissues reapproximated using 3 0 Vicryl the skin closed with carloz. Patient tolerated the procedure well she was extubated transferred to the postoperative care unit in stable condition. A postoperative chest x-ray demonstrates no evidence of pneumothorax. Complications: none Post-operative Condition: stable Disposition: ICU
--- NOTE | 2020-04-14 19:05 | SUR.PHASEI ---
Report to Shemar Mixon for pt on floor at 1840. VSS, pt states pain tolerable or no pain now. Pt thinks she is at home not oriented to place. Squirming in bed at times and wondering if sitter might be appropriate for pt up on floor, discussed with Apurva who will look into it.
--- NOTE | 2020-04-14 19:08 | SUR.PHASEI ---
1854- Handoff to GREGORY Mixon in room 231. Pt stable and verbalizes she is comfortable. No c/o.
[2020-04-14] MEDS: POTASSIUM CHLORIDE 30 MEQ in SODIUM CHLORIDE 0.9% 250 ML 88.333 ML IV ×2 (19:13→22:39)
[2020-04-14] MEDS: METOPROLOL TARTRATE 5 MG/5 ML INJ IV (19:13)
[2020-04-14] MEDS: SODIUM CHLORIDE 0.9% 1,000 ML 100 ML IV (19:14)
[2020-04-14] MEDS: PANTOPRAZOLE 40 MG VIAL 20 MG IV (21:08)
[2020-04-15] VITALS (20 sets, daily range): BP systolic 125–201; BP diastolic 61–85; PULSE 62–93; RESP 10–19; TEMP 36.5–38.1; O2SAT 93–100
[2020-04-15] MEDS: METOPROLOL TARTRATE 5 MG/5 ML INJ IV ×2 (00:03→05:26)
[2020-04-15] MEDS: HYDROMORPHONE 0.5 MG INJ IV ×2 (00:03→05:27)
[2020-04-15] MEDS: METOCLOPRAMIDE 10 MG/2 ML INJ 5 MG IV ×4 (00:04→19:53)
--- NOTE | 2020-04-15 02:42 | PC.NURSE ---
Addendum entered by Dulce Rodriguez R.N. 04/15/20 06:52: Patient has dozed well overnight, wake forgetful but calm and reorients easily. Scant dark bile color fluid out of gastric drain. Total 375ml UOP in Parr. K+ Baldomero infused. 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 Scheduled IV metoprolol and Reglan given, SR, is hypertensive, see vital trends. Medicated with IV Dilaudid per prn. Abdominal drsg CDI, gastric drain patent to gravity. Currently has 1:1 sitter due to previous confusion and agitation.
[2020-04-15 04:40] LABS: Add Manual Diff / Slide Review NO; Basophils Absolute Auto 0 /uL (0-100); Basophils Percent Auto 0.2 % (0-2); Eosinophils Absolute Auto 0 /uL (0-450); Hematocrit 36.7 % (36-46); Hemoglobin 11.8 g/dL (12.0-16.0); Lymphocytes Absolute Auto 600 /uL (1100-4500); Lymphocytes Percent Auto 3.8 % (25-40); Mean Corpuscular HGB Conc 32.2 % (30-36); Mean Corpuscular Hemoglobin 29.2 PG (26-34); Mean Corpuscular Volume 90.9 fL (80-100); Monocytes Absolute Auto 1600 /uL (0-900); Monocytes Percent Auto 10.3 % (3-14); Neutrophils Absolute Auto 13500 /uL (1500-7000); Neutrophils Percent Auto 85.7 % (50-75); Platelet Count 215 X10^3/uL (150-400); Red Blood Cell Count 4.03 X10^6/uL (4.0-5.2); Red Cell Distribution Width 13.9 % (11.6-14.8); White Blood Cell Count 15.8 X10^3/uL (4.5-11.0)
[2020-04-15 04:55] LABS: BUN Creatinine Ratio 21.4 (6-22); Blood Urea Nitrogen 18 mg/dL (7-17); Calcium 9.3 mg/dL (8.4-10.2); Carbon Dioxide 28 mmol/L (22-32); Chloride 113 mmol/L (98-107); Estimated Glomerular Filt Rate > 60.0 mL/min (>60); Glucose 123 mg/dL (80-110); HEMOLYSIS < 15 (0-50); Potassium 4.3 mmol/L (3.4-5.1); Sodium 145 mmol/L (137-145)
[2020-04-15 04:56] LABS: Magnesium 1.8 mg/dL (1.6-2.3); Phosphorous 2.9 mg/dL (2.8-4.1)
[2020-04-15] MEDS: SODIUM CHLORIDE 0.9% 1,000 ML 100 ML IV (05:26)
[2020-04-15] MEDS: LOSARTAN 50 MG TABLET 25 MG PO (09:25)
[2020-04-15] MEDS: PANTOPRAZOLE 40 MG VIAL 20 MG IV (09:26)
[2020-04-15] MEDS: OXYCODONE IR 5 MG TABLET PO (09:26)
--- NOTE | 2020-04-15 09:59 | P.PN_ITS ---
Subjective Subjective Date Patient Seen: 04/15/20 Time Patient Seen: 09:59 Interval history: No acute overnight events. She was able to tolerate clear liquids without nausea or vomiting. Her pain is well controlled. She has not been ambulatory yet. Exam Vital Signs (past 8 hours): - 04/15/20 02:00 04/15/20 03:02 04/15/20 04:01 Temperature Pulse Rate 73 75 73 Respiratory Rate 13 13 10 L Blood Pressure 174/72 H 162/72 H 185/80 H Pulse Oximetry 99 98 96 04/15/20 04:30 04/15/20 05:00 04/15/20 06:04 Temperature Pulse Rate 76 62 Respiratory Rate 11 L 13 Blood Pressure 183/76 H 125/61 Pulse Oximetry 99 04/15/20 06:48 04/15/20 07:00 04/15/20 08:27 Temperature 97.7 F Pulse Rate 68 72 Respiratory Rate Blood Pressure 148/67 H Pulse Oximetry 97 94 Oxygen Delivery Method Room Air Oxygen Flow Rate 1 Narrative Exam Narrative: General elderly woman alert oriented drowsy. Chest nonlabored respiration Abdomen soft appropriately tender to palpation dressings clean dry intact. Objective Labs Result Diagrams: 04/15/20 04:20 04/15/20 04:20 Labs: Laboratory Results - last 24 hr 04/14/20 04/14/20 04/14/20 11:50 11:50 11:50 WBC 10.6 RBC 4.36 Hgb 12.8 Hct 38.9 MCV 89.3 MCH 29.3 MCHC 32.8 RDW 13.9 Plt Count 214 Neut % (Auto) 89.5 H Lymph % (Auto) 6.4 L [place] % (Auto) 3.8 Eos % (Auto) 0.1 L Baso % (Auto) 0.2 Neut # (Auto) 9500 H Lymph # (Auto) 700 L [place] # (Auto) 400 Eos # (Auto) 0 Baso # (Auto) 0 PT 11.9 INR 1.0 APTT 32 Sodium 144 Potassium 3.2 L Chloride 104 Carbon Dioxide 28 BUN 23 H Creatinine 0.72 Estimated GFR > 60.0 BUN/Creatinine Ratio 31.9 H Glucose 152 H Calcium 11.1 H Phosphorus Magnesium Total Bilirubin 0.7 AST 44 H ALT 23 Alkaline Phosphatase 51 Total Creatine Kinase 90 CK-MB (CK-2) TNP CK-MB (CK-2) Rel Index TNP Troponin I 0.017 Total Protein 8.8 H Albumin 5.2 H Globulin 3.6 Albumin/Globulin Ratio 1.4 Lipase 146 COVID-19 PCR Blood Type Antibody Screen 04/14/20 04/14/20 04/14/20 13:50 13:54 14:55 WBC RBC Hgb Hct MCV MCH MCHC RDW Plt Count Neut % (Auto) Lymph % (Auto) [place] % (Auto) Eos % (Auto) Baso % (Auto) Neut # (Auto) Lymph # (Auto) [place] # (Auto) Eos # (Auto) Baso # (Auto) PT INR APTT Sodium Potassium Chloride Carbon Dioxide BUN Creatinine Estimated GFR BUN/Creatinine Ratio Glucose Calcium Phosphorus Magnesium Total Bilirubin AST ALT Alkaline Phosphatase Total Creatine Kinase CK-MB (CK-2) CK-MB (CK-2) Rel Index Troponin I 0.018 Total Protein Albumin Globulin Albumin/Globulin Ratio Lipase COVID-19 PCR Negative Blood Type O Positive Antibody Screen Negative 04/15/20 04/15/20 04/15/20 04:20 04:20 04:20 WBC 15.8 H RBC 4.03 Hgb 11.8 L Hct 36.7 MCV 90.9 MCH 29.2 MCHC 32.2 RDW 13.9 Plt Count 215 Neut % (Auto) 85.7 H Lymph % (Auto) 3.8 L [place] % (Auto) 10.3 Eos % (Auto) 0.0 L Baso % (Auto) 0.2 Neut # (Auto) 83484 H Lymph # (Auto) 600 L [place] # (Auto) 1600 H Eos # (Auto) 0 Baso # (Auto) 0 PT INR APTT Sodium 145 Potassium 4.3 Chloride 113 H Carbon Dioxide 28 BUN 18 H Creatinine 0.84 Estimated GFR > 60.0 BUN/Creatinine Ratio 21.4 Glucose 123 H Calcium 9.3 Phosphorus 2.9 Magnesium 1.8 Total Bilirubin AST ALT Alkaline Phosphatase Total Creatine Kinase CK-MB (CK-2) CK-MB (CK-2) Rel Index Troponin I Total Protein Albumin Globulin Albumin/Globulin Ratio Lipase COVID-19 PCR Blood Type Antibody Screen Assessment & Plan Post-op Postoperative Procedures: Procedures Operation Date: 04/14/20 15:15 Actual Procedures Side Surgeon p Exploratory Laparotomy, hiatal hernia repair with gastrostomy tube placement Not Applicable Jose Eduardo Gilmore MD Postoperative status narrative: 85-year-old woman postoperative day 1 after a open hiatal hernia repair with gastrostomy tube for a gastric volvulus doing well. -cap gastrostomy tube -full liquid diet as tolerated -decrease IV fluids to 50 mL/hr -SCDs will add Lovenox starting tomorrow -physical therapy out of bed to chair ambulate as able -nutrition consult status post hiatal hernia repair -remove Parr this afternoon if able to mobilize
--- NOTE | 2020-04-15 11:35 | OT.IPNOTE ---
Attempted to see pt and PT for OT eval. Pt a bit confused and not wanting to get up at this time. Nursing aware pt not appropriate at this time for therapy eval. To check on pt tomorrow for OT eval.
--- NOTE | 2020-04-15 11:39 | PT-IP ANOTE ---
PT order received. Attempted to eval pt with OT at 1120am. Pt was very confused and disoriented who did not like to open her eyes for conversation at this point. She also got agitated while PT and OT attempted to get her OOB. Nursing is aware and agreed she is not appropriate for therapy at this point possibly d/t her pain medication. Will reattempt this pm or tomorrow morning.
[2020-04-15] MEDS: ACETAMINOPHEN 325 MG TABLET 650 MG PO ×2 (12:20→19:54)
[2020-04-15] MEDS: KETOROLAC 15 MG/ML VIAL IV ×2 (12:32→20:48)
--- NOTE | 2020-04-15 12:38 | CM.DANOTE ---
Addendum entered by Natalie Guallpa R.N. 04/15/20 15:18: Patient is up sitting in her chair. Son, Markus, is here from [place]. Patient also has another son that is local. Discussed discharge planning, and patient and son do not want to consider assisted, but would like to pursue home health. Discussed agencies, and brought in a Medicare Choice List. Stated, they used to use [facility] some years ago, and let them know that [facility] no longer has a home health agency. They will look over agencies. Patient confirmed that she is independent at home at baseline. She will be working with P.T. Original Note: DCP: Case received, EMR reviewed. Checked on patient, she has been sleeping, and irritable at times. Went ahead and initiated assessment based on information in patient's chart. Patient is an 85 year old male who admitted yesterday afternoon to the care of the hospitalist/surgical team. PCP: Dr. Pinzon. Payer: confirmed: Medicare/BCBS Out of [facility]. Patient came to the hospital secondary to nausea and vomiting. According to the notes, patient had been at her son's house when the symptoms occurred. Nurse, William, mentioned that son of patient had been in earlier. He is caring for patient's , Evans, who has dementia. He has not been able to come in due to visitor rule of only one, for needs someone to watch him. Patient has diagnosis of gastric volvolus/hiatal hernia, and surgery was performed yesterday. As this time, full liquids is being introduced. She has been having discomfort, and is sleeping at this time. P.T. had attempted to work with patient, but she refused, as she did with O.T. Placed name of this high risk case manager on her white board, but have not been able to speak to patient. According to records, patient resides here in [place] with her spouse, Evans. P: DCP will attempt later to meet with patient, or in the am, for any needs. Will see how patient does with P.T. If skilled is recommended, she is inpatient status and would meet criteria. Natalie Guallpa RN/Injection Mold Tooling Technician
--- NOTE | 2020-04-15 14:34 | PC.NURSE ---
Day Shift Note Pt became increasingly drowsy and confused after oxycodone administration this morning with difficulty following commands. Pt became agitated and visibly distressed when PT attempted to work with her today, shouting you're killing me!. Reorientation unsuccessful. Pain medication reviewed at bedside with Dr. Gilmore and new orders obtained: toradol IV and tylenol crushed in pudding given to pt. Pt required several cues to swallow pills. This afternoon pt much more alert, still confused at times but able to reorient to place and situation. Calm and cooperative. Assisted to transfer to chair with this medical technical writer and INDUSTRIAL PLANT CUSTODIAN, pt did well and required minimal assist. Up in chair with chair alarm in place. Son is at bedside. Dressing C/D/I. Gastric drain is capped. Parr catheter in place at this time draining clear yellow urine.
--- NOTE | 2020-04-15 15:55 | OT.IP.EVAL ---
Current Diagnoses Other diseases of stomach and duodenum (04/14/20) Surgery Performed Operation Date: 04/14/20 15:15 Actual Procedures p Exploratory Laparotomy, hiatal hernia repair with gastrostomy tube placement(Not Applicable) - Jose Eduardo Gilmore MD Past Medical History (Last Reviewed 04/14/20 @ 11:58 by Josselin Felipe DO) Anxiety (Chronic 1997) Cervical spine disease (Chronic) Chronic back pain (Chronic 2004) GERD (gastroesophageal reflux disease) (Chronic 2007) Hayfever (Chronic) History of ectopic (Resolved 1971) Kyphosis (Chronic 2007) L1 vertebral fracture (Resolved 1964) Lumbar spine pain (Chronic ~1994) 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) Osteoarthritis (Chronic ~1994) Osteopenia (Chronic ~1994) Osteoporosis (Chronic 2007) Parathyroid disease (Resolved 2007) Recurrent sinusitis (Chronic) Scarlet fever (Resolved) Scoliosis (Chronic) Shoulder pain (Chronic 2014) Tinnitus (Chronic) Vertigo (Chronic) Surgical History (Last Reviewed 04/14/20 @ 11:58 by Josselin Felipe DO) Anesthesia complication (Resolved) History of cataract removal with insertion of prosthetic lens (Resolved 2011) History of cataract removal with insertion of prosthetic lens (Resolved 2012) History of salpingectomy (Resolved) Status post breast reduction (Resolved 1999) Status post bunionectomy (Resolved 1992) Status post parathyroidectomy (Resolved 2007) Status post parathyroidectomy (Resolved 2009) Occupational Therapy Inpatient Evaluation/Re-Eval M1 PT/OT-IP Prior Functional Status Start: 04/15/20 15:58 Freq: NEEDED Status: Active Protocol: Document 04/15/20 15:41 [facility] (Rec: 04/15/20 16:22 [facility] [id number]) Medical Review Prior Functional Status Medical History Reviewed Yes Communication Independent. Mobility and Gait Pt states did not use any device per pt. Pt states just got a 4WW and states just has been playing around with it. Activities of Daily Living and IADL's Pt states prior was completely independent with all her ADL , IADl, but takes extra time to complete due to complete tasks. Pt states takes her one hour to do her hair in the morning and has to prop her right arm on the counter so able to do her hair. Social History Household Members spouse Living Arrangements House Number of Floors (Floors) Two Floors Number of Stairs To Enter/Railing? 3 steps to enter with no railings and able to stay on the main level. Home Environment Standard Height Toilet,Walk in Shower Home Equipment Front Wheel Walker,Four Wheel Walker,Straight Cane,Shower Seat with Backrest,Hand Held Shower,Grab Bars Near Toilet M2 OT-IP Current Condition Start: 04/15/20 15:58 Freq: Status: Active Protocol: Document 04/15/20 15:41 [facility] (Rec: 04/15/20 16:22 [facility] [id number]) Occupational Therapy Current Condition Current Condition Evaluation Date 04/15/20 Treatment Diagnosis Open hiatal hernia repair with gastrostomy tube for a gastric volvulus Diagnosis Onset Date 04/14/20 Post Operative Precautions Abdominal Surgery Precautions Log Roll,Lifting Restrictions, Gait Belt above Incisional Area M3 OT- IP Subjective and Pain Start: 04/15/20 15:58 Freq: Status: Active Protocol: Document 04/15/20 15:41 [facility] (Rec: 04/15/20 16:22 [facility] [id number]) OT- Subjective Occupational Therapy Visit Type Type Initial Evaluation Visit Start Time 15:41 Visit Stop Time 15:55 Total Visit Minutes 14 Occupational Therapy Visit Comments Patient Comments Pt's son in the room and pt already sitting up in the recliner and requesting to go back to bed. Patient/Caregiver Goals To go home. OT Pain Assessment Pain When Pain Assessed At Rest Pain Present Pain Present Pain Reported Location epigastric Description With Movement Pain Behaviors Holding Area M4 OT- IP ADL's Start: 04/15/20 15:58 Freq: Status: Active Protocol: Document 04/15/20 15:41 [facility] (Rec: 04/15/20 16:22 [facility] [id number]) OT [id number] Comments OT Self-Feeding Comments NOt at meal time. OT ADL-Grooming Comments OT Grooming Comments NOt performed. OT ADL-Dressing Comments OT Dressing Comments At this time pt would require MAX A due to not being able to bend over to assist with LB dressing needs at this time. OT ADL-Toileting General Evaluation Toileting Ability Total Assistance Comments OT Toileting Comments Parr in place. OT ADL-Bathing Comments OT Bathing Comments NOt performed. M5 OT- IP IADL's Start: 04/15/20 15:58 Freq: Status: Active Protocol: Document 04/15/20 15:41 [facility] (Rec: 04/15/20 16:22 [facility] [id number]) OT-Instrumental Activities of Daily Living Home Safety Awareness Home Safety Comments Pt still a bit confused at this time and therefore may need assist for needs at home pending how pt clears mentally . Pt states she is very sensitive to medications. M6 OT- IP Functional Cognition Start: 04/15/20 15:58 Freq: Status: Active Protocol: Document 04/15/20 15:41 [facility] (Rec: 04/15/20 16:22 [facility] [id number]) Cognitive Factors Limiting Selfcare Function Cognitive Ability Level of Alertness Alert,Confusional State Patient Orientation Name,Place,Situation Attention Span Ability Capable of Focused Attention, Capable of Sustained Attention Ability to Follow Commands Able to Follow One Step Commands with Increased Time, Able to Follow One Step Commands with Repetition Cognitive Comments Cognitive Assessment Comments Pt able to follow step by step instructions for bed mobility and transfer at this time. To continue to assess pt cognitively as pt clears. OT- Vision and Hearing OT- Hearing Assessment OT- Hearing Assessment WFL M7 OT- IP Mobility and Balance Start: 04/15/20 15:58 Freq: Status: Active Protocol: Document 04/15/20 15:41 [facility] (Rec: 04/15/20 16:22 [facility] [id number]) OT- Bed Mobility Assessment Supine to Sit Supine to Sit Assist Moderate Assistance OT-Transfer Assessment Sit to and From Stand Sit to and from Stand Contact Guard Assistance,1 Person Assistance Transfers Transfer Ability Contact Guard Assistance,1 Person Assistance Technique Transfer Destination Bed,Chair Transfer Technique Stand Step Pivot Devices Transfer Assistive Devices Gait Belt,Front Wheeled Walker OT- Balance Assessment Sitting Balance and Reactions Static Sitting Balance Ability Good Standing Balance and Reactions Static Standing Balance Ability Fair M8 OT- IP Objective Assessments Start: 04/15/20 15:58 Freq: Status: Active Protocol: Document 04/15/20 15:41 [facility] (Rec: 04/15/20 16:22 [facility] [id number]) OT Gross Range of Motion Upper Extremity Range of Motion Assessment Bilaterally Impaired ROM Impairments RUE 0-80 shoulder flexion, LUE NT due to recent sx. OT Strength Upper Extremity Strength Assessment Bilaterally Impaired Comments Strength Comments BUE strength 3-/5 M9 OT- IP Assessment and Plan Start: 04/15/20 15:58 Freq: Status: Active Protocol: Document 04/15/20 15:41 [facility] (Rec: 04/15/20 16:22 [facility] [id number]) OT Summary Assessment and Plan Potential Rehabilitation Potential Good Analytic Complexity at Evaluation Low Summary OT Impairments Pain,Balance,Functional Cognition,Functional Mobility, Self-Feeding,Grooming,Dressing ,Toilet Transfers,Shower Transfers,Activity Tolerance Progress Towards Goals Slow Progress due to Medical Issues,Slow Progress due to Activity Tolerance,Slow Progress due to Cognition Assessment Summary Pt low complexity main barrier are steps, decreased activity tolerance, and now needing one person assist for ADl and mobility needs from recent open hiatal hernia repair with gastrostomy tube for a gastric volvulus. Pt mainly just able to tolerate getting back to bed at this time. Pt states has a supportive that can assist. Therefore to pending caregiver training suggested pt to go home with assist. Goals Self-Feeding Goal Independent Grooming Goal Independent Dressing Goal Independent Toileting Goal Independent Bathing Goal Independent Toilet Transfer Goal Independent Shower Transfer Goal Independent Patient/Caregiver Education Goal Caregiver Independent Assisting Patient Days to Meet Goals 8 Frequency of Treatment Frequency Of Treatment Once a Day Treatment Plan OT Treatment Plan ADL Training,Functional Cognition Training,Functional Mobility,Patient/Family Education,Discharge Planning Other Treatment Recommendations and Next LB dressing and education of Treatment Focus adaptive equipment if needed. Discharge Recommendations OT Discharge Recommendations Home with Assistance Transportation Needs at Discharge Private Vehicle
--- NOTE | 2020-04-15 16:55 | PT.IIE ---
Current Diagnoses Other diseases of stomach and duodenum (04/14/20) Surgery Performed Operation Date: 04/14/20 15:15 Actual Procedures p Exploratory Laparotomy, hiatal hernia repair with gastrostomy tube placement(Not Applicable) - Jose Eduardo Gilmore MD Surgical History (Last Reviewed 04/14/20 @ 11:58 by Josselin Felipe DO) Anesthesia complication (Resolved) History of cataract removal with insertion of prosthetic lens (Resolved 2011) History of cataract removal with insertion of prosthetic lens (Resolved 2012) History of salpingectomy (Resolved) Status post breast reduction (Resolved 1999) Status post bunionectomy (Resolved 1992) Status post parathyroidectomy (Resolved 2007) Status post parathyroidectomy (Resolved 2009) Medical History (Last Reviewed 04/14/20 @ 11:58 by Josselin Felipe DO) Anxiety (Chronic 1997) Cervical spine disease (Chronic) Chronic back pain (Chronic 2004) GERD (gastroesophageal reflux disease) (Chronic 2007) Hayfever (Chronic) History of ectopic (Resolved 1971) Kyphosis (Chronic 2007) L1 vertebral fracture (Resolved 1964) Lumbar spine pain (Chronic ~1994) 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) Osteoarthritis (Chronic ~1994) Osteopenia (Chronic ~1994) Osteoporosis (Chronic 2007) Parathyroid disease (Resolved 2007) Recurrent sinusitis (Chronic) Scarlet fever (Resolved) Scoliosis (Chronic) Shoulder pain (Chronic 2014) Tinnitus (Chronic) Vertigo (Chronic) Physical Therapy Inpatient Evaluation/Re-Eval M1 PT/OT-IP Prior Functional Status Start: 04/15/20 09:38 Freq: NEEDED Status: Active Protocol: Document 04/15/20 16:51 (Rec: 04/15/20 16:53 [id number]) Medical Review Prior Functional Status Medical History Reviewed Yes Diet/Fluid Consistency Regular Communication independent Mobility and Gait pt states did not use any device per pt. She states just got a 4WW and states just has been playing around with it Activities of Daily Living and IADL's pt states prior was completely indpeendent with all ALD IADL but takes extra time to complete due to complete tasks . Pt states takes her one hour to do her hair in the morning and has to prop her right arm on the counter so able to do her hair Social History Household Members spouse Living Arrangements House Number of Floors (Floors) Two Floors Number of Stairs To Enter/Railing? 3 MARCI with no railings and able to stay on main floor Home Environment Standard Height Toilet,Walk in Shower Home Equipment Front Wheel Walker,Four Wheel Walker,Straight Cane,Shower Seat with Backrest,Hand Held Shower,Grab Bars Near Toilet Employment Status Retired Additional Social History Comment Son, Markus, is here from [place]. Patient also has another son that is local. Discussed discharge planning, and patient and son do not want to consider mcc, but would like to pursue home health. M1 PT/OT-IP Prior Functional Status Start: 04/15/20 15:58 Freq: NEEDED Status: Active Protocol: Document 04/15/20 16:19 [facility] (Rec: 04/15/20 16:50 [id number]) Medical Review Prior Functional Status Medical History Reviewed Yes Diet/Fluid Consistency Regular Social History Household Members spouse Living Arrangements House Additional Social History Comment Son, Markus, is here from [place]. Patient also has another son that is local. Discussed discharge planning, and patient and son do not want to consider mcc, but would like to pursue home health. M2 PT-IP Current Condition Start: 04/15/20 09:38 Freq: NEEDED Status: Active Protocol: Document 04/15/20 16:19 [facility] (Rec: 04/15/20 16:50 [id number]) Physical Therapy Current Condition Current Condition Evaluation Date 04/15/20 Treatment Diagnosis Exploratory laparotomy, hiatal hernia repair with gastrostomy tube placemen Onset Date 04/14/20 Precautions Abdominal Surgery Precautions Log Roll,Lifting Restrictions, Gait Belt above Incisional Area Weight Bearing Status Weight Bearing Status Full Weight Bearing M3 PT-IP Subjective Start: 04/15/20 09:38 Freq: NEEDED Status: Active Protocol: Document 04/15/20 16:19 [facility] (Rec: 04/15/20 16:50 [id number]) Subjective Physical Therapy Visit Type Type Initial Evaluation Visit Start Time 15:44 Visit Stop Time 15:52 Total Visit Minutes 18 Notes co-tx with OT Radha Number of MECHANIC [employer]USTRI[employer] TRUCK Visits 0 Physical Therapy Visit Comments Patient Comments Im feeling better than this morning now. Patient Goals To regain her strength so she can return home with family. Therapy Pain Assessment Pain When Pain Assessed During Mobility Pain Present Pain Present Pain Reported Location epigastric Intensity 8 Scale Used [place] (Faces) Description Acute Pain Behaviors Facial Grimacing,Guarding, Holding Area,Moaning Pain Management Techniques Distraction,Re-positioning, Timing of Activity with Medications M4 PT-IP Mobility and Gait Start: 04/15/20 09:38 Freq: NEEDED Status: Active Protocol: Document 04/15/20 16:19 [facility] (Rec: 04/15/20 16:50 HH [id number]) PT-Bed Mobility Assessment Sit to Supine Sit to Supine Moderate Assistance,1 Person Assistance PT-Transfer Assessment Sit to and From Stand Sit to and from Stand Contact Guard Assistance,Use of Upper Extremities Equipment Transfer Assistive Device Gait Belt,Front Wheeled Walker Orthotic/Prosthetic Devices or Brace: No Transfers Transfer Destination Bed,Chair Transfer Technique Stand Step Pivot Transfer Ability Level of Assist Minimal Assistance,Use of Upper Extremities Comments Mobility Comments Pt was up in chair talking to PATRICIA Garcia upon PT arrival. However pt was still somewhat drowsy and confused since she mistakenly thought her catheter as the water bottle. Her BP at 173/73 in seated and she requested to return to bed. Pt then used pediatric walker and needed tactile cues for hand placements on armrest to stand up with CGA. She showed a significant flexed posture in standing possibly d/t her scoliosis. She then slowly amb (step to pattern ) to bedside on R with tactile and verbal cues for guidance. Pt then sat at EOB and with holding her abdominal tightly d/t pain and reports of dizziness. This PT mod A her from sit to sidelying followed by log roll to center of bed. She was calling out for pain and appeared to be very fatigue. BP went up to 194/78 and notified nursing. Pt then lay in bed comfortably with call light within reach and BP went down to 168/77. Gait Assessment Gait Gait Assistance Required: Contact Guard Assist Distance (Feet) 3 Able to Maintain Weight Bearing Status Yes During Gait Assistive Devices Assistive Device Gait Belt,Front Wheeled Walker Orthotic/Prosthetic Devices or Brace: No Factors Limiting Gait Function Factors Limiting Gait Function Decreased Activity Tolerance, Decreased Strength,Limited Range of Motion,Pain,Poor Balance,Poor Safety Awareness, Respiratory Distress Comments Gait Comments see mobility comments Stair Climbing Assessment Comments Stair Climbing Comments unable to assess PT-Balance Assessment Sitting Balance and Reactions Static Sitting Balance Ability Normal Dynamic Sitting Balance Ability Good Standing Balance and Reactions Static Standing Balance Ability Good Dynamic Standing Balance Ability Fair Device Used FWW M5 PT-IP Objective Assessments Start: 04/15/20 09:38 Freq: NEEDED Status: Active Protocol: Document 04/15/20 16:19 (Rec: 04/15/20 16:50 [id number]) Orientation Orientation/Cognition Level of Alertness Confusional State Orientation Name,Age,Birthday,Month,Date, Year,Day of Week,Place, Situation Language Function Ability Hard of Hearing Safety Awareness Decreased Safety Awareness Memory Description Short Term Impaired Comments see mobility comments. Pt was somewhat confused Gross Range of Motion Upper Extremity ROM Impairments per OT ,pt's UE only able to reach approx 85 degrees flexion Strength Upper Extremity Strength Assessment Bilaterally Impaired Lower Extremity Strength Assessment Bilaterally Impaired Hip 3+/5 Knee 3+/5 Coordination Assessment Gross Coordination Gross Coordination WNL M6 PT-IP Treatment Start: 04/15/20 09:38 Freq: NEEDED Status: Active Protocol: Document 04/15/20 16:19 [facility] (Rec: 04/15/20 16:50 [id number]) Physical Therapy Treatment Education Education Provided Precautions,Weight Bearing Status,Safety M7 PT-IP Assessment and Plan Start: 04/15/20 09:38 Freq: NEEDED Status: Active Protocol: Document 04/15/20 16:19 [facility] (Rec: 04/15/20 16:50 [id number]) PT Summary Assessment and Plan Potential Rehabilitation Potential Good Status of Condition at Evaluation Evolving Summary Impairments Pain,ROM,Strength,Balance,Bed Mobility,Transfers,Gait, Activity Tolerance Assessment Summary Kavita is a 85yo female s/p POD1 Exploratory laparotomy, hiatal hernia repair with gastrostomy tube placement d/t gastric volvulus. Pt was very confused this am but has been slowly improving. Upon assessment, she was somewhat confused and drowsy but able to follow simple commands and able to get up from chair to bed with CGA and mod A for sit to supine d/t significant abdominal pain. Pt's BP was elevated possibly d/t pain and stress. Son spoke to SW and wish pt could have homehealth with and his help upon DC instead of SNF. Since pt has a good PLOF whose mobility should be cont to improve accordingly as her diet restriction and mental status improve. Will cont monitor pt' s progress and expect her to go home upon dc (CG training will be suggested). Goals Bed Mobility Goal Standby Assistance Transfer Goal Standby Assistance,Front Wheeled Walker Gait Goal Standby Assistance,Front Wheel Walker Gait Distance 150 Other Goals 3 MARCI with no rails Days to Meet Goals 5 Frequency of Treatment Frequency Of Treatment Once a Day Treatment Plan Physical Therapy Treatment Plan Bed Mobility Training,Transfer Training,Gait Training, Therapeutic Exercise,Balance Retraining,Post Op Education, Discharge Planning,Hot or Cold Pack,Neuromuscular Re-ed Other Recommendations and Next Treatment check vitals Focus mobility as laurent review precautions Recommendations To Nursing Amount of Assist Needed 1 Person Assist Discharge Recommendations PT Discharge Recommendations Home with Assistance,Home with 24/ Assist,Home Health,SNF Rehab Transportation Needs at Discharge Private Vehicle,Wheelchair/ Cabulance
--- NOTE | 2020-04-15 18:11 | PC.NURSE ---
Evening shift note; Pt sitting up in chair at this time, son is at bedside. Pt is A/O x 3, able to state where she is, situation, and what date it is. Pt/OT at bedside working with pt, BP elevated after working with PT/OT 190/81, however came back down to 168/77 after getting back into bed. Pt states that she is worried that she is sleeping too much, this nurse assured her that it is common to be tired after surgery and it is ok to sleep when you are tired. Pain assessment was a 5/10 at this time, pt is refusing medication. Parr is draining clear yellow urine, gastric tube is capped, fluids infusing as ordered. Bed low and locked, call light within reach, no further needs at this time.
[2020-04-15] MEDS: PANTOPRAZOLE 20 MG TABLET PO (20:47)
[2020-04-15] MEDS: SODIUM CHLORIDE 0.9% 1,000 ML 50 ML IV (20:52)
[2020-04-16] VITALS (56 sets, daily range): BP systolic 73–167; BP diastolic 45–80; PULSE 59–140; RESP 8–35; TEMP 36.2–37.2; O2SAT 82–100
[2020-04-16] MEDS: METOCLOPRAMIDE 10 MG/2 ML INJ 5 MG IV ×5 (00:35→23:42)
[2020-04-16] MEDS: ALPRAZolam 0.25 MG TABLET PO ×3 (00:35→19:42)
[2020-04-16] MEDS: ACETAMINOPHEN 325 MG TABLET 650 MG PO ×5 (00:36→23:44)
[2020-04-16] MEDS: TRAMADOL 50 MG TABLET PO (00:36)
--- NOTE | 2020-04-16 02:34 | DI.RAD.S_ITS ---
PROCEDURE: XR CHEST 1V INDICATIONS: chest pain TECHNIQUE: One view of the chest was acquired. COMPARISON: [facility], CR, XR CHEST 1V, 04/14/2020, 18:18. FINDINGS: Surgical changes and devices: None. Lungs and pleura: Trace bilateral pleural effusions. Increased opacification of the lung bases bilaterally Mediastinum: Mediastinal contours appear normal. Heart is enlarged Bones and chest wall: No suspicious bony lesions. Overlying soft tissues appear unremarkable. IMPRESSION: 1. Trace bilateral pleural fluid collections.. Two. Patchy opacities in the lung bases bilaterally which could represent atelectasis, aspiration or pneumonia. 3. Cardiomegaly. Dictated by: Deborah Erickson MD, PhD on 04/16/2020 at 10:22 Approved by: Deborah Erickson MD, PhD on 04/16/2020 at 10:22
[2020-04-16 02:52] LABS: Add Manual Diff / Slide Review NO; Basophils Absolute Auto 0 /uL (0-100); Basophils Percent Auto 0.4 % (0-2); Eosinophils Absolute Auto 0 /uL (0-450); Hematocrit 31.9 % (36-46); Hemoglobin 10.3 g/dL (12.0-16.0); Lymphocytes Absolute Auto 1700 /uL (1100-4500); Lymphocytes Percent Auto 14.3 % (25-40); Mean Corpuscular HGB Conc 32.2 % (30-36); Mean Corpuscular Hemoglobin 29.2 PG (26-34); Mean Corpuscular Volume 90.6 fL (80-100); Monocytes Absolute Auto 1300 /uL (0-900); Monocytes Percent Auto 11.3 % (3-14); Neutrophils Absolute Auto 8600 /uL (1500-7000); Platelet Count 188 X10^3/uL (150-400); Red Blood Cell Count 3.53 X10^6/uL (4.0-5.2); Red Cell Distribution Width 13.8 % (11.6-14.8); White Blood Cell Count 11.6 X10^3/uL (4.5-11.0)
[2020-04-16 03:01] LABS: BUN Creatinine Ratio 21.1 (6-22); Blood Urea Nitrogen 15 mg/dL (7-17); Calcium 8.6 mg/dL (8.4-10.2); Carbon Dioxide 23 mmol/L (22-32); Chloride 113 mmol/L (98-107); Estimated Glomerular Filt Rate > 60.0 mL/min (>60); Glucose 74 mg/dL (80-110); HEMOLYSIS < 15 (0-50); Potassium 3.1 mmol/L (3.4-5.1); Sodium 142 mmol/L (137-145)
[2020-04-16 03:02] LABS: Creatine Kinase 307 U/L (30-135); Magnesium 1.8 mg/dL (1.6-2.3); Phosphorous 1.6 mg/dL (2.8-4.1)
[2020-04-16 03:13] LABS: Troponin I 0.028 ng/mL (0.01-0.034)
[2020-04-16] MEDS: AMIODARONE 150 MG/100 ML PIGGYBACK 600 MG IV (03:15)
[2020-04-16 03:17] LABS: CKMB % Relative Index 0.9 % (1.5-5.0)
[2020-04-16 03:33] LABS: NT-proBNP (BNP-Adult 18+) 3940 pg/mL (<450)
[2020-04-16 03:40] LABS: D Dimer 1528 ng/mL (<230)
[2020-04-16] MEDS: MAGNESIUM SULFATE 2 GM/50 ML PIGGYBACK IV (03:40)
[2020-04-16] MEDS: POTASSIUM PHOSPHATE 15 MMOL in DEXTROSE 5% IN WATER 250 ML 63.75 ML IV ×2 (03:40→16:37)
--- NOTE | 2020-04-16 03:50 | PM.EVENT ---
Event Note Date Patient Seen: 04/16/20 Time Patient Seen: 03:51 Event Note: [address] Gilmore's who is two days out from repair of PEH with gastric volvulus. This evening she went into rapid A fib with crushing chest pain. She was found to have phos 1.6, K 3.1, Mag 1.8. HR was 148 and SBP was 70's to 90's. She c/o severe chest pain. CXR revealed no recurrent PEH. G tube was vented. She was given an amio bolus, and electrolyte repletion. Cardioversion was attempted with Dr. Cantu present and Dr. Rodas. came to see the patient as well. I attempted to call her son and , but left messages to call when they did not answer. She briefly converted into sinus, but returned to A fib. HR 90's-110's on Amio, and may need pressor. SBP 80's to 110's. Dr. Pinzon here, continuing to manage BP and contacting cardiology. Plan: ICU care replete electrolytes recheck lytes in AM Amio gtt trend troponins
--- NOTE | 2020-04-16 04:02 | P.CONS_ITS ---
History of Present Illness Consult details Chief complaint: N/V and abd pain Narrative: 85yo woman with hypertension, hypercalcemia, and severe scoliosis with kyphosis now POD #2 s/p open hiatal hernia repair with gastrostomy tube for gastric volvulus now in atrial fibrillation with RVR. Pt reports having severe substernal chest pain, that is now resolved. HR was up to the 140s, with BP to the 70s/40s. Pt received an amiodarone bolus of 150mg. Her electrolytes were noted to be abnormal with phosphorus of 1.6, magnesium of 1.8, and potassium of 3.1. These were repleted with IV riders. Her troponin was negative, with elevated CK. BNP was noted to be elevated to 3940. CXR showed evidence of cardiomegaly but was otherwise grossly normal. Cardioversion was attempted with support from Anesthesia by Dr Cantu (see separate note). She briefly converted to sinus rhythm, but then after a few seconds returned to atrial fibrillation. The pt received a total of 4 boluses with phenylephrine, for a total of 400mcg, around the time of the procedure due to BPs as low as the 60s/40s. The pts BP has now recovered to the 100s/60s, with a HR in the 100-110s. Meds Home Medications and Allergies Home Medications Medication Instructions Recorded Confirmed Type polyethylene glycol 3350 [Miralax] 17 gm PO QDAY PRN #0 05/03/11 04/14/20 History aspirin 81 mg tablet,delayed 81 mg PO DAILY #90 tab 02/23/18 04/14/20 Rx release loratadine-pseudoephedrine ER 10 1 tab PO DAILY #90 tab 02/23/18 04/14/20 Rx mg-240 mg tablet,extended [id number] multivitamin 1 tab PO DAILY #90 tab 02/23/18 04/14/20 Rx sodium chloride 0.65 % nasal spray 1 spray NASAL ONCE #60 ml 02/23/18 04/14/20 Rx aerosol fenofibrate micronized 67 mg 67 mg PO QDAY #90 tab 12/16/19 04/14/20 Rx capsule losartan 50 mg tablet 25 mg PO DAILY #90 tab 01/14/20 04/14/20 Rx omeprazole 40 mg capsule,delayed 40 mg PO QDAY #90 cap 01/21/20 04/14/20 Rx release alprazolam [Xanax] 0.25 mg PO BID PRN 04/14/20 04/14/20 History furosemide 20 mg PO DAILY 04/14/20 04/14/20 History Disabled Parking Permit 1 ea TD QDAU 04/15/20 04/15/20 History Allergies Allergy/AdvReac Type Severity Reaction Status Date / Time codeine [CODEINE] Allergy Mild vomiting Verified 04/14/20 12:04 formaldehyde [FORMALDEHYDE] Allergy Mild puffy Verified 04/14/20 12:04 eyes, blurred vision latex [LATEX] Allergy Mild rash Verified 04/14/20 12:04 morphine [MORPHINE] Allergy Mild vomiting Verified 04/14/20 12:04 Exam Vital Signs (past 8 hours): - 04/16/20 00:00 04/16/20 00:13 04/16/20 03:58 Temperature 98.9 F Pulse Rate 90 118 H Respiratory Rate 19 14 Blood Pressure 167/76 H Pulse Oximetry 95 95 Oxygen Delivery Method Room Air Oxygen Flow Rate 0 Narrative Exam Narrative: Gen: NAD, laying comfortably in bed with washcloth across head, appears fatigued Neck: no LAD, no JVD CV: irregularly irregular rhythm, tachycardic, no murmurs Resp: clear to auscultation bilaterally Abd: dressing c/d/i, soft, nondistended, appropriately tender, no rebound/guarding/rigidity Ext: trace edema Objective Labs Result Diagrams: 04/16/20 02:40 04/16/20 02:40 Labs: Laboratory Results - last 24 hr 04/15/20 04/15/20 04/15/20 04:20 04:20 04:20 WBC 15.8 H RBC 4.03 Hgb 11.8 L Hct 36.7 MCV 90.9 MCH 29.2 MCHC 32.2 RDW 13.9 Plt Count 215 Neut % (Auto) 85.7 H Lymph % (Auto) 3.8 L [place] % (Auto) 10.3 Eos % (Auto) 0.0 L Baso % (Auto) 0.2 Neut # (Auto) 73375 H Lymph # (Auto) 600 L [place] # (Auto) 1600 H Eos # (Auto) 0 Baso # (Auto) 0 D-Dimer Sodium 145 Potassium 4.3 Chloride 113 H Carbon Dioxide 28 BUN 18 H Creatinine 0.84 Estimated GFR > 60.0 BUN/Creatinine Ratio 21.4 Glucose 123 H Calcium 9.3 Phosphorus 2.9 Magnesium 1.8 Total Creatine Kinase CK-MB (CK-2) CK-MB (CK-2) Rel Index Troponin I NT-Pro-B Natriuret Pep Nasal Screen MRSA (PCR) 04/15/20 04/16/20 04/16/20 10:50 02:40 02:40 WBC 11.6 H RBC 3.53 L Hgb 10.3 L Hct 31.9 L MCV 90.6 MCH 29.2 MCHC 32.2 RDW 13.8 Plt Count 188 Neut % (Auto) 74.0 Lymph % (Auto) 14.3 L [place] % (Auto) 11.3 Eos % (Auto) 0.0 L Baso % (Auto) 0.4 Neut # (Auto) 8600 H Lymph # (Auto) 1700 [place] # (Auto) 1300 H Eos # (Auto) 0 Baso # (Auto) 0 D-Dimer Sodium Potassium Chloride Carbon Dioxide BUN Creatinine Estimated GFR BUN/Creatinine Ratio Glucose Calcium Phosphorus 1.6 L D Magnesium 1.8 Total Creatine Kinase CK-MB (CK-2) CK-MB (CK-2) Rel Index Troponin I NT-Pro-B Natriuret Pep Nasal Screen MRSA (PCR) Negative for mrsa 04/16/20 04/16/20 04/16/20 02:40 02:40 02:40 WBC RBC Hgb Hct MCV MCH MCHC RDW Plt Count Neut % (Auto) Lymph % (Auto) [place] % (Auto) Eos % (Auto) Baso % (Auto) Neut # (Auto) Lymph # (Auto) [place] # (Auto) Eos # (Auto) Baso # (Auto) D-Dimer Sodium 142 Potassium 3.1 L D Chloride 113 H Carbon Dioxide 23 BUN 15 Creatinine 0.71 Estimated GFR > 60.0 BUN/Creatinine Ratio 21.1 Glucose 74 L Calcium 8.6 Phosphorus Magnesium Total Creatine Kinase 307 H D CK-MB (CK-2) 2.90 H CK-MB (CK-2) Rel Index 0.9 L Troponin I 0.028 NT-Pro-B Natriuret Pep 3940 H Nasal Screen MRSA (PCR) 04/16/20 02:40 WBC RBC Hgb Hct MCV MCH MCHC RDW Plt Count Neut % (Auto) Lymph % (Auto) [place] % (Auto) Eos % (Auto) Baso % (Auto) Neut # (Auto) Lymph # (Auto) [place] # (Auto) Eos # (Auto) Baso # (Auto) D-Dimer 1528 H Sodium Potassium Chloride Carbon Dioxide BUN Creatinine Estimated GFR BUN/Creatinine Ratio Glucose Calcium Phosphorus Magnesium Total Creatine Kinase CK-MB (CK-2) CK-MB (CK-2) Rel Index Troponin I NT-Pro-B Natriuret Pep Nasal Screen MRSA (PCR) Assessment & Plan Assessment and plan (1) Atrial fibrillation with RVR: Status: Acute (2) Hypotension: Status: Acute Assessment & Plan narrative: 85yo woman with hypertension, hypercalcemia, and severe scoliosis with kyphosis now POD #2 s/p open hiatal hernia repair with gastrostomy tube for gastric volvulus consulted due to atrial fibrillation with RVR. 1) Atrial fibrillation with RVR: S/P Cardioversion with brief conversion to sinus rhythm but then rapidly back into atrial fibrillation. Hypotension now improved after 400mcg phenylephrine. On review of pts record, it appears she had atrial fibrillation in 2017, without known recurrence since. - Consulted Cardiology, Dr Bob - Continue Amiodarone drip - Monitor BP closely, if becoming hypotensive can use Phenylephrine push and IVF - Echocardiogram in the AM - Recommended consult with day Cardiology team in the AM - Replete electrolytes. Repeat labs after completed. 2) Hypertension: - Hold home Losartan due to hypotension 3) Post-operative from hiatal hernia repair and gastostomy tube: - Management per primary surgical team Code: Full code
--- NOTE | 2020-04-16 04:06 | ED.CONSULT ---
ED Provider Consult/Code Note General Date Patient Seen: 04/16/20 Time Patient Seen: 04:07 Reason for Admission: N/V and abd pain Events leading to Consult/Code: Called by admission team for evaluation of new onset, symptomatic Afib with rates as high as the 140s and BP down to the 80s in the setting of chest pain. I requested they contact anesthesia for sedation given potential post operative complications. Phone consulation with erosion control coordinator cardiology (Paulino) who recommends Amio 150mg over ten minutes prior to cardioversion. Patient consented. Cardiac Rhythm: Rapid Atrial Fib Additional: no signs of ischemia such as ST segmental depression Respiratory Auscultation: clear to auscultation bilaterally Care Provided Description of care provided: Electrical Cardioversion: Indication: [Symptomatic, new onset rapid atrial fibrillation] A time-out was completed verifying correct patient, procedure Informed consent was obtained. The patient was judged to be a satisfactory for the procedure. Monitoring equipment was set-up. The resuscitative cart was nearby. Anesthesia at bedside to perform sedation After satisfactory anesthesia was achieved, the procedure was performed. The pads were placed in the standard position. Synchronized, direct current electrical cardioversion was performed with [150 joules]. Patient converted to a sinus rhythm for a few minutes, but then returned to rapid AFib. I did not repeat the cardioversion. Post Procedure: Successful cardioversion [was not achieved.] Outcome Outcome: patient stable. Symptoms improved. Amio drip continued. Care assumed by medical/surgical teams.
[2020-04-16] MEDS: POTASSIUM CHLORIDE 30 MEQ in SODIUM CHLORIDE 0.9% 250 ML 88.333 ML IV ×2 (04:45→08:17)
[2020-04-16] MEDS: AMIODARONE 360 MG/200 ML PIGGYBACK 33.33 MG IV (05:05)
--- NOTE | 2020-04-16 05:39 | PC.NURSE ---
Shift Note-Patient had been dozing comfortably after receiving scheduled Tylenol, prn Tramadol, and prn Xanax at midnight. Patient was in NSR w/ 1st degree AVB and occas PVCs and moderately hypertensive 167/76. At 0207 during turning to left, she went into A-fib RVR, initially rate 110-120s but progressively increased to 140s and became hypotensive with c/o chest pressure and discomfort rhythm confirmed with EKG, Dr Velázquez notified at 0230, she arrived at bedside at 0250. She contacted Dr Pinzon who arrived soon after. Labs drawn, CXR done. Both MDs communicated with Dr Cantu in ED and Dr Rodas anesthesiologist who came to bedside to perform cardioversion, RT Janna also at bedside, one attempt with 150J was done after loading of dose of 150mg Amiodarone given over 10minutes as ordered. Patient went into NSR briefly, then back into A-fib RVR rate 120s mostly. MDs stayed at bedside until BP became stable, chest pain resolved, IV Mg+ rider, K+Phos, and 30meq K+ rider has been infusing, 500ml NS fluid bolus in. Amiodarone infusion started at 33.3ml/hr as recommended by surgical first assistant per Dr Pinzon. See rhythm strips and vital trends.
[2020-04-16] MEDS: PANTOPRAZOLE 20 MG TABLET PO (08:18)
[2020-04-16] MEDS: ENOXAPARIN 30 MG/0.3 ML SYRINGE SUBCUT (08:18)
[2020-04-16] MEDS: FUROSEMIDE 40 MG/4 ML VIAL IV (08:20)
--- NOTE | 2020-04-16 10:06 | P.PN_ITS ---
Subjective Subjective Date Patient Seen: 04/16/20 Time Patient Seen: 10:06 Interval history: Rapid AFib with RVR and hypotension overnight unable to control with amiodarone. She had cardioversion as now on amiodarone drip rate is 110 currently. No chest pain no shortness of breath. She has minimal abdominal pain she is more bothered by her chronic neck pain at this point. She received electrolyte replacement ordered 40 of IV Lasix this a.m. tolerating small amounts of full liquid diet without nausea or vomiting. Exam Vital Signs (past 8 hours): - 04/16/20 03:00 04/16/20 03:11 04/16/20 03:30 Temperature Pulse Rate 140 H 114 H Respiratory Rate 19 17 Blood Pressure 100/54 L 86/52 L 79/54 L Pulse Oximetry 94 94 04/16/20 03:34 04/16/20 03:35 04/16/20 03:39 Temperature Pulse Rate 105 H 101 H 108 H Respiratory Rate 15 14 Blood Pressure 77/50 L 73/45 L 98/58 L Pulse Oximetry 94 95 96 04/16/20 03:40 04/16/20 03:41 04/16/20 03:42 Temperature Pulse Rate 106 H 109 H 115 H Respiratory Rate 13 Blood Pressure 89/62 L 111/68 114/67 Pulse Oximetry 96 96 96 04/16/20 03:43 04/16/20 03:45 04/16/20 03:48 Temperature Pulse Rate 110 H 111 H 102 H Respiratory Rate 19 8 L 20 Blood Pressure 114/57 L 108/68 88/52 L Pulse Oximetry 96 98 100 04/16/20 03:49 04/16/20 03:50 04/16/20 03:55 Temperature Pulse Rate 103 H 110 H 107 H Respiratory Rate 15 14 14 Blood Pressure 103/64 98/62 80/48 L Pulse Oximetry 99 98 93 04/16/20 03:58 04/16/20 04:00 04/16/20 04:02 Temperature Pulse Rate 118 H 107 H 110 H Respiratory Rate 14 14 14 Blood Pressure 81/52 L Pulse Oximetry 98 98 04/16/20 04:05 04/16/20 04:13 04/16/20 04:15 Temperature Pulse Rate 107 H 122 H 109 H Respiratory Rate 19 13 15 Blood Pressure 88/50 L 94/53 L 109/57 L Pulse Oximetry 98 90 L 96 04/16/20 04:20 04/16/20 04:30 04/16/20 04:41 Temperature Pulse Rate 113 H 118 H 120 H Respiratory Rate 18 15 11 L Blood Pressure 111/58 L 112/58 L 105/67 Pulse Oximetry 98 97 98 04/16/20 04:50 04/16/20 05:00 04/16/20 05:10 Temperature 97.2 F L Pulse Rate 111 H 118 H 118 H Respiratory Rate 11 L 11 L 17 Blood Pressure 103/57 L 102/64 105/73 Pulse Oximetry 96 95 96 04/16/20 08:00 04/16/20 09:00 Temperature 98.6 F Pulse Rate 101 H 113 H Respiratory Rate 12 24 Blood Pressure 119/78 114/66 Pulse Oximetry 97 97 Oxygen Delivery Method Nasal Cannula Oxygen Flow Rate 0 Narrative Exam Narrative: General elderly female alert oriented this morning Chest non labored respiration Abdomen soft minimally tender gastrostomy tube in place. Objective Labs Result Diagrams: 04/16/20 02:40 04/16/20 02:40 Labs: Laboratory Results - last 24 hr 04/15/20 04/16/20 04/16/20 10:50 02:40 02:40 WBC 11.6 H RBC 3.53 L Hgb 10.3 L Hct 31.9 L MCV 90.6 MCH 29.2 MCHC 32.2 RDW 13.8 Plt Count 188 Neut % (Auto) 74.0 Lymph % (Auto) 14.3 L [place] % (Auto) 11.3 Eos % (Auto) 0.0 L Baso % (Auto) 0.4 Neut # (Auto) 8600 H Lymph # (Auto) 1700 [place] # (Auto) 1300 H Eos # (Auto) 0 Baso # (Auto) 0 D-Dimer Sodium Potassium Chloride Carbon Dioxide BUN Creatinine Estimated GFR BUN/Creatinine Ratio Glucose Calcium Phosphorus 1.6 L D Magnesium 1.8 Total Creatine Kinase CK-MB (CK-2) CK-MB (CK-2) Rel Index Troponin I NT-Pro-B Natriuret Pep Nasal Screen MRSA (PCR) Negative for mrsa 04/16/20 04/16/20 04/16/20 02:40 02:40 02:40 WBC RBC Hgb Hct MCV MCH MCHC RDW Plt Count Neut % (Auto) Lymph % (Auto) [place] % (Auto) Eos % (Auto) Baso % (Auto) Neut # (Auto) Lymph # (Auto) [place] # (Auto) Eos # (Auto) Baso # (Auto) D-Dimer Sodium 142 Potassium 3.1 L D Chloride 113 H Carbon Dioxide 23 BUN 15 Creatinine 0.71 Estimated GFR > 60.0 BUN/Creatinine Ratio 21.1 Glucose 74 L Calcium 8.6 Phosphorus Magnesium Total Creatine Kinase 307 H D CK-MB (CK-2) 2.90 H CK-MB (CK-2) Rel Index 0.9 L Troponin I 0.028 NT-Pro-B Natriuret Pep 3940 H Nasal Screen MRSA (PCR) 04/16/20 02:40 WBC RBC Hgb Hct MCV MCH MCHC RDW Plt Count Neut % (Auto) Lymph % (Auto) [place] % (Auto) Eos % (Auto) Baso % (Auto) Neut # (Auto) Lymph # (Auto) [place] # (Auto) Eos # (Auto) Baso # (Auto) D-Dimer 1528 H Sodium Potassium Chloride Carbon Dioxide BUN Creatinine Estimated GFR BUN/Creatinine Ratio Glucose Calcium Phosphorus Magnesium Total Creatine Kinase CK-MB (CK-2) CK-MB (CK-2) Rel Index Troponin I NT-Pro-B Natriuret Pep Nasal Screen MRSA (PCR) Assessment & Plan Post-op Postoperative Procedures: Procedures Operation Date: 04/14/20 15:15 Actual Procedures Side Surgeon p Exploratory Laparotomy, hiatal hernia repair with gastrostomy tube placement Not Applicable Jose Eduardo Gilmore MD Postoperative status narrative: 85-year-old female postoperative day 2 after a open hiatal hernia repair with gastrostomy tube placement for gastric volvulus. # diet-continue full liquid diet as tolerated # atrial fibrillation with RVR-check afternoon electrolytes following this a.m. replacement. DC IV fluids. Continue amiodarone drip. Will follow up with Medicine regarding further recommendations. # pain control-DC narcotics as she seems to be especially sensitive will use Tylenol Toradol and tramadol if needed. # VT prophylaxis-SCDs and Lovenox # PT OT out of bed ambulate
[2020-04-16] MEDS: AMIODARONE 541 MG/300.56 ML PIGGYBACK 16.667 MG IV ×2 (10:42→22:29)
--- NOTE | 2020-04-16 10:54 | PT.IPTN ---
Current Diagnoses Unspecified atrial fibrillation (04/14/20) Hypotension, unspecified (04/14/20) Other diseases of stomach and duodenum (04/14/20) Surgery Performed Operation Date: 04/14/20 15:15 Actual Procedures p Exploratory Laparotomy, hiatal hernia repair with gastrostomy tube placement(Not Applicable) - Jose Eduardo Gilmore MD Physical Therapy Treatment Note M2 PT-IP Current Condition Start: 04/15/20 09:38 Freq: NEEDED Status: Active Protocol: Document 04/15/20 16:19 HH (Rec: 04/15/20 16:50 HH [id number]) Physical Therapy Current Condition Current Condition Evaluation Date 04/15/20 Treatment Diagnosis Exploratory laparotomy, hiatal hernia repair with gastrostomy tube placemen Onset Date 04/14/20 Precautions Abdominal Surgery Precautions Log Roll,Lifting Restrictions, Gait Belt above Incisional Area Weight Bearing Status Weight Bearing Status Full Weight Bearing M3 PT-IP Subjective Start: 04/15/20 09:38 Freq: NEEDED Status: Active Protocol: Document 04/16/20 10:22 SP (Rec: 04/16/20 13:05 SP [id number]) Subjective Physical Therapy Visit Type Type Treatment Note Visit Start Time 10:22 Visit Stop Time 10:54 Total Visit Minutes 32 Number of POOL CLEANER Visits 1 Physical Therapy Visit Comments Patient Comments I am a little tired, just took some meds that are making me little sleepy but I want to do what I can. Patient Goals To regain her strength so she can return home with family. Therapy Pain Assessment Pain When Pain Assessed During Mobility Pain Present Pain Present Pain Reported Location epigastric Intensity 2 Scale Used Numeric (0 - 10) Description Pressure,With Movement Pain Behaviors Facial Grimacing,Holding Area Pain Management Techniques Re-positioning,Timing of Activity with Medications M4 PT-IP Mobility and Gait Start: 04/15/20 09:38 Freq: NEEDED Status: Active Protocol: Document 04/16/20 10:22 SP (Rec: 04/16/20 13:05 SP [id number]) PT-Bed Mobility Assessment Supine to Sit Supine to Sit Contact Guard Assistance,Head of Bed Elevated,Bedrails Scooting Scooting to Edge of Bed Contact Guard Assistance PT-Transfer Assessment Sit to and From Stand Sit to and from Stand Contact Guard Assistance,Use of Upper Extremities Equipment Transfer Assistive Device Gait Belt,Front Wheeled Walker Orthotic/Prosthetic Devices or Brace: No Transfers Transfer Destination Chair Transfer Technique Stand Step Pivot Transfer Ability Level of Assist Contact Guard Assistance,Use of Upper Extremities Comments Mobility Comments Pt completed 70 deg supine> sitting using pillow placement at abdomen and scoot to EOB using 1 UE at time, CGA with intermittent cuing for upright posture, tends to flex trunk foward excessively. Pt sat at EOB SBA. Sit to stand CGA using BUE push from bed, SPT to chair using FWW with cuing for body postioning backing up to chair with FWW and reaching back with good slow descent using BUE, therapist managed all IV pole and tubing . Pt was reclined in chair with call light, chair alarm donned and all needs in reach. Nursing was intermittently in during tx for monitor assessment beeping. Gait Assessment Gait Gait Assistance Required: Contact Guard Assist Distance (Feet) 3 Able to Maintain Weight Bearing Status Yes During Gait Assistive Devices Assistive Device Gait Belt,Front Wheeled Walker Orthotic/Prosthetic Devices or Brace: No Gait Deviations General Gait Pattern Antalgic,Decreased Stride Length,Decreased Feet Clearance,Flexed Trunk,Step-to Gait Factors Limiting Gait Function Factors Limiting Gait Function Decreased Activity Tolerance, Decreased Strength,Limited Range of Motion,Pain,Poor Balance,Poor Safety Awareness, Respiratory Distress Comments Gait Comments See mobility comments for further details. Stair Climbing Assessment Comments Stair Climbing Comments unable to assess PT-Balance Assessment Sitting Balance and Reactions Static Sitting Balance Ability Normal Dynamic Sitting Balance Ability Good Standing Balance and Reactions Static Standing Balance Ability Good Dynamic Standing Balance Ability Fair Device Used FWW M5 PT-IP Objective Assessments Start: 04/15/20 09:38 Freq: NEEDED Status: Active Protocol: Document 04/15/20 16:19 (Rec: 04/15/20 16:50 [id number]) Orientation Orientation/Cognition Level of Alertness Confusional State Orientation Name,Age,Birthday,Month,Date, Year,Day of Week,Place, Situation Language Function Ability Hard of Hearing Safety Awareness Decreased Safety Awareness Memory Description Short Term Impaired Comments see mobility comments. Pt was somewhat confused Gross Range of Motion Upper Extremity ROM Impairments per OT ,pt's UE only able to reach approx 85 degrees flexion Strength Upper Extremity Strength Assessment Bilaterally Impaired Lower Extremity Strength Assessment Bilaterally Impaired Hip 3+/5 Knee 3+/5 Coordination Assessment Gross Coordination Gross Coordination WNL M6 PT-IP Treatment Start: 04/15/20 09:38 Freq: NEEDED Status: Active Protocol: Document 04/16/20 10:22 SP (Rec: 04/16/20 13:05 SP [id number]) Physical Therapy Treatment Education Education Provided Precautions,Weight Bearing Status,Safety M7 PT-IP Assessment and Plan Start: 04/15/20 09:38 Freq: NEEDED Status: Active Protocol: Document 04/16/20 10:22 SP (Rec: 04/16/20 13:05 SP [id number]) PT Summary Assessment and Plan Potential Rehabilitation Potential Good Status of Condition at Evaluation Evolving Summary Impairments Pain,ROM,Strength,Balance,Bed Mobility,Transfers,Gait, Activity Tolerance Assessment Summary Pt A& O x3, reported little drowsy from meds recently taken. Pt required CGA during all mobility, used YFWW with cuing for pillow placement during bed mobility and increased upright posture. Pt reported almost no pain during mobility. Pt's BP was 112/70 throughout tx, no report of dizziness, 90-98% on RA. Family wish patient to return home with homehealth with and his help upon DC instead of SNF. Since pt has a good PLOF whose mobility should be cont to improve accordingly as her diet restriction and mental status improve. Will cont monitor pt' s progress and expect her to go home upon dc (CG training will be suggested). Goals Bed Mobility Goal Standby Assistance Transfer Goal Standby Assistance,Front Wheeled Walker Gait Goal Standby Assistance,Front Wheel Walker Gait Distance 150 Other Goals 3 MARCI with no rails Days to Meet Goals 5 Frequency of Treatment Frequency Of Treatment Once a Day Treatment Plan Physical Therapy Treatment Plan Bed Mobility Training,Transfer Training,Gait Training, Therapeutic Exercise,Balance Retraining,Post Op Education, Discharge Planning,Hot or Cold Pack,Neuromuscular Re-ed Other Recommendations and Next Treatment check vitals Focus mobility as laurent review precautions, gait further distance and stair mgt when appropriate, caregiver training prior to DC. Recommendations To Nursing Amount of Assist Needed 1 Person Assist Discharge Recommendations PT Discharge Recommendations Home with Assistance,Home with 24/7 Assist,Home Health,SNF Rehab Transportation Needs at Discharge Private Vehicle,Wheelchair/ Cabulance
--- NOTE | 2020-04-16 13:00 | DI.ECHO.S_ITS ---
Echocardiogram Report + + :Name: ALBERT JAFFE V Study Date: 04/16/2020 Height: 57 in : :[facility] Weight: 97 lb : : Gender: Female BSA: 1.3 m2 : :: 1935 Age: 85 yrs BP: 107/68 mmHg: :Reason For Study: AFIB : :Ordering Physician: Karlos : :Hospitalist Performed By: Rosalba Trammell : :Referring: DAVID SNYDER : + + Interpretation Summary The left ventricular ejection fraction is normal. There are no focal wall motion abnormalities. Diastolic function could not be accurately assessed due to atrial fibrillation. The right ventricle is normal in size and function. Right ventricular systolic pressure is estimated to be 30 mmHg plus the clinically estimated CVP which cannot be estimated on this exam. -Compared to the prior echo, the PASP is probably lower. Procedure: A two-dimensional transthoracic echocardiogram with color flow and Doppler was performed. The study quality was technically adequate. Comparison is made with the echocardiogram of 09/17/2016. The subcostal views were not obtained due to due to bandages. The patient was in atrial fibrillation with heart rates between 87-107 bpm during the exam. Left Ventricle: The left ventricle is normal in size and wall thickness. The ejection fraction is estimated to be 60-65%. The left ventricular ejection fraction is normal. There are no focal wall motion abnormalities. Diastolic function could not be accurately assessed due to atrial fibrillation. Right Ventricle: The right ventricle is normal in size and function. Atria: The left atrium is mildly dilated. The right atrium is mildly dilated. There is no Doppler evidence for an interatrial shunt. Mitral Valve: The mitral valve is normal in structure and function. There is mild mitral annular calcification. There is moderate mitral regurgitation. There are multiple regurgitant jets present. Aortic Valve: The aortic valve is trileaflet. The aortic valve opens well. The aortic valve is mildly calcified. There is no aortic valve stenosis. There is mild to moderate aortic regurgitation. Tricuspid Valve: The tricuspid valve is normal in structure and function. Right ventricular systolic pressure is estimated to be 30 mmHg plus the clinically estimated CVP which cannot be estimated on this exam. There is moderate tricuspid regurgitation. Pulmonic Valve: The pulmonic valve leaflets are thin and pliable; valve motion is normal. There is mild pulmonic regurgitation. Great Vessels: The aortic root is normal size. The dimensions of the ascending aorta are normal. The inferior vena cava was not visualized. Pericardium/ Pleura There is a trivial pericardial effusion noted. There is no pleural effusion. MMode/2D Measurements & Calculations LVIDd: 4.0 cm LVOT diam: 2.1 cm LVIDs: 2.5 cm Ao root diam: 3.0 cm FS: 37.4 % asc Aorta Diam: 3.3 cm EPSS: 0.75 cm Ao Arch Diam (Prox Trans): 2.8 cm IVSd: 1.1 cm LVPWd: 0.91 cm LV guzmán. diameter/BSA (cm/m^2): 3.0 LV sys. diameter/BSA (cm/m^2): 1.9 LA A2 area: 18.6 cm2 RA long axis: 5.2 cm LA A4 area: 17.0 cm2 RA area: 17.7 cm2 LA length (vol): 5.3 cm RA vol: 51.2 ml LA vol: 50.6 ml RA : 38.7 ml/m2 LA vol index: 38.3 ml/m2 RVD1 (basal): 3.4 cm TAPSE: 1.8 cm Doppler Measurements & Calculations Ao V2 max: 135.7 cm/sec LVOT Max Joshua: 90.7 cm/sec Ao V2 mean: 92.4 cm/sec LV V1 max P.3 mmHg Ao max P.4 mmHg LV V1 VTI: 18.4 cm Ao mean P.9 mmHg GENOVEVA(I,D): 2.7 cm2 Ao V2 VTI: 22.5 cm GENOVEVA(V,D): 2.2 cm2 sev ratio: 0.82 GENOVEVA indexed to BSA (cm^2/m^2): 2.1 AI P1/2t: 584.9 msec AI dec slope: 208.9 cm/sec2 MV E max joshua: 91.4 cm/sec TR max joshua: 271.6 cm/sec MV A max joshua: 2.0 cm/sec TR max P.5 mmHg MV E/A: 45.1 PA pr(Accel): 50.7 mmHg Med Peak E' Joshua: 5.3 cm/sec E/E' med: 17.1 Lat Peak E' Joshua: 10.4 cm/sec E/E' lat: 8.8 E/e' average: 13.0 MV dec time: 0.12 sec SVFRANCES): 61.6 ml Electronically signed by: John Weldon M.D. on Reading Physician:04/16/2020 04:29 PM
[2020-04-16] MEDS: KETOROLAC 15 MG/ML VIAL IV ×2 (13:44→19:42)
--- NOTE | 2020-04-16 14:18 | CM.DPC ---
DCP Cont: Patient's is in the room visiting. Contacted patient's son, Markus. His phone number is: [phone]. Discussed home health options, choices, as well as nursing home facilities. He mentioned since she had that cardiac event last night, she may be better off going to a skilled facility, preferably the one in [facility], so she can get the therapy she needs. Asked son if he felt that she would consent to go. He indicated that he will discuss with his mother tomorrow. Went ahead and called Lise at [facility], asked her to review. She stated that she is getting low on female beds, but she will review. It is not clear if patient will be ready for discharge tomorrow since she had a cardiac event last pm. Son is hopeful to have her here in [facility] versus other facilities in [facility] or [place]. Stated that home health is not off of the table either. Will go ahead and complete PASSR today. P: DCP to follow closely. Patient will either go home with home health, or possibly [facility]. Follow up tomorrow with patient and family, as well as [facility]. Natalie Guallpa RN/Director Of Rooms
[2020-04-16 14:34] LABS: Blood Urea Nitrogen 14 mg/dL (7-17); Calcium 8.1 mg/dL (8.4-10.2); Carbon Dioxide 28 mmol/L (22-32); Chloride 112 mmol/L (98-107); Estimated Glomerular Filt Rate > 60.0 mL/min (>60); Glucose 98 mg/dL (80-110); HEMOLYSIS < 15 (0-50); Magnesium 2.2 mg/dL (1.6-2.3); Phosphorous 1.4 mg/dL (2.8-4.1); Potassium 3.7 mmol/L (3.4-5.1); Sodium 142 mmol/L (137-145)
--- NOTE | 2020-04-16 15:04 | OT.IPNOTE ---
Pt's visiting and pt not wanting to get up at this time as her right shoulder is bothering her. Pt states in addition to her will have other family members to assist in her care at home. To check on pt tomorrow.
[2020-04-17] VITALS (27 sets, daily range): BP systolic 91–145; BP diastolic 51–68; PULSE 53–68; RESP 7–58; TEMP 36.1–37.1; O2SAT 93–97
[2020-04-17 06:10] LABS: Add Manual Diff / Slide Review NO; Basophils Absolute Auto 100 /uL (0-100); Basophils Percent Auto 0.8 % (0-2); Eosinophils Absolute Auto 200 /uL (0-450); Eosinophils Percent Auto 2.1 % (2-4); Hematocrit 30.5 % (36-46); Hemoglobin 10.1 g/dL (12.0-16.0); Lymphocytes Absolute Auto 1300 /uL (1100-4500); Lymphocytes Percent Auto 16.6 % (25-40); Mean Corpuscular HGB Conc 33.2 % (30-36); Mean Corpuscular Hemoglobin 29.8 PG (26-34); Mean Corpuscular Volume 89.7 fL (80-100); Monocytes Absolute Auto 800 /uL (0-900); Monocytes Percent Auto 9.8 % (3-14); Neutrophils Absolute Auto 5500 /uL (1500-7000); Neutrophils Percent Auto 70.7 % (50-75); Platelet Count 160 X10^3/uL (150-400); Red Cell Distribution Width 13.8 % (11.6-14.8); White Blood Cell Count 7.7 X10^3/uL (4.5-11.0)
[2020-04-17 06:15] LABS: Magnesium 2.2 mg/dL (1.6-2.3); Phosphorous 2.5 mg/dL (2.8-4.1)
[2020-04-17 06:16] LABS: BUN Creatinine Ratio 22.4 (6-22); Blood Urea Nitrogen 17 mg/dL (7-17); Calcium 8.1 mg/dL (8.4-10.2); Carbon Dioxide 28 mmol/L (22-32); Chloride 110 mmol/L (98-107); Estimated Glomerular Filt Rate > 60.0 mL/min (>60); Glucose 93 mg/dL (80-110); HEMOLYSIS < 15 (0-50); Potassium 4.1 mmol/L (3.4-5.1); Sodium 140 mmol/L (137-145)
[2020-04-17] MEDS: METOCLOPRAMIDE 10 MG/2 ML INJ 5 MG IV ×3 (06:21→18:42)
--- NOTE | 2020-04-17 08:04 | P.PN_ITS ---
Subjective Subjective Date Patient Seen: 04/17/20 Time Patient Seen: 08:04 Interval history: The pt reports that she is overall feeling well this morning. She denies any chest pain, SOB. She is anxious to get out of bed more today, and is tired of laying around. She does report having some nasal congestion that is bothersome. She believes it is related to her allergies. Exam Vital Signs (past 8 hours): - 04/17/20 00:30 04/17/20 01:00 04/17/20 01:07 Temperature Pulse Rate 53 L 53 L Respiratory Rate 18 53 H 47 H Blood Pressure 97/51 L 91/55 L Pulse Oximetry 97 96 04/17/20 01:08 04/17/20 01:20 04/17/20 02:00 Temperature Pulse Rate 55 L 55 L 54 L Respiratory Rate 56 H 53 H 48 H Blood Pressure 93/55 L 97/53 L 98/51 L Pulse Oximetry 97 96 94 04/17/20 03:00 04/17/20 03:05 04/17/20 04:00 Temperature 96.9 F L Pulse Rate 59 L 60 Respiratory Rate 53 H Blood Pressure 134/63 134/63 Pulse Oximetry 93 95 04/17/20 04:06 04/17/20 05:00 04/17/20 06:17 Temperature Pulse Rate 54 L 56 L 58 L Respiratory Rate 17 Blood Pressure 110/58 L 115/56 L 118/56 L Pulse Oximetry 96 04/17/20 06:26 Temperature Pulse Rate Respiratory Rate Blood Pressure Pulse Oximetry 96 Oxygen Delivery Method Nasal Cannula Oxygen Flow Rate 0 Narrative Exam Narrative: Gen: NAD, sitting comfortably in bed HEENT: no sinus tenderness Neck: no LAD CV: regular rhythm, bradycardic, no murmurs Resp: clear to auscultation bilaterally Abd: soft, nondistended, appropriately tender, dressing c/d/i Ext: trace edema Objective Labs Result Diagrams: 04/17/20 05:50 04/17/20 05:50 Labs: Laboratory Results - last 24 hr 04/16/20 04/17/20 04/17/20 14:10 05:50 05:50 WBC 7.7 RBC 3.40 L Hgb 10.1 L Hct 30.5 L MCV 89.7 MCH 29.8 MCHC 33.2 RDW 13.8 Plt Count 160 Neut % (Auto) 70.7 Lymph % (Auto) 16.6 L [place] % (Auto) 9.8 Eos % (Auto) 2.1 Baso % (Auto) 0.8 Neut # (Auto) 5500 Lymph # (Auto) 1300 [place] # (Auto) 800 Eos # (Auto) 200 Baso # (Auto) 100 Sodium 142 Potassium 3.7 Chloride 112 H Carbon Dioxide 28 BUN 14 Creatinine 0.70 Estimated GFR > 60.0 BUN/Creatinine Ratio 20.0 Glucose 98 Calcium 8.1 L Phosphorus 1.4 L 2.5 L D Magnesium 2.2 2.2 04/17/20 05:50 WBC RBC Hgb Hct MCV MCH MCHC RDW Plt Count Neut % (Auto) Lymph % (Auto) [place] % (Auto) Eos % (Auto) Baso % (Auto) Neut # (Auto) Lymph # (Auto) [place] # (Auto) Eos # (Auto) Baso # (Auto) Sodium 140 Potassium 4.1 Chloride 110 H Carbon Dioxide 28 BUN 17 Creatinine 0.76 Estimated GFR > 60.0 BUN/Creatinine Ratio 22.4 H Glucose 93 Calcium 8.1 L Phosphorus Magnesium Assessment & Plan Assessment and plan (1) Atrial fibrillation with RVR: Status: Acute (2) Hypotension: Status: Acute Assessment & Plan narrative: 85yo woman with hypertension, hypercalcemia, and severe scoliosis with kyphosis now POD #3 s/p open hiatal hernia repair with gastrostomy tube for gastric volvulus consulted due to atrial fibrillation with RVR. 1) Atrial fibrillation with RVR: S/P Cardioversion with brief conversion to sinus rhythm but then rapidly back into atrial fibrillation. Initially with hypotension, now resolved. Pt converted to sinus rhythm on Amiodarone drip. Now more bradycardic range. Echocardiogram completed yesterday without significant abnormalities. - Consulted Cardiology, Dr Bob yesterday - Continue Amiodarone drip to completion - Re-evaluate HR at completion of drip, if still more bradycardic will not initiate PO Amiodarone. If HR increased slightly, will start 200mg PO Amiodarone daily. - Electrolytes improved significantly. - Consider need for anticoagulation as an outpatient. - Will have pt f/u with Cardiology as an outpatient 2) Hypertension: - Home Losartan. Likely hold today based on low-normal BPs curently. 3) Post-operative from hiatal hernia repair and gastostomy tube: - Management per primary surgical team Code: Full code
--- NOTE | 2020-04-17 08:20 | DIET.PN ---
Dietary Progress Note Assessment: 85y F admitted for N/V, abd px c radiologist noting, There is a very large hiatal hernia with a markedly distended stomach filled with debris both above and below the hernia. Organo-axial gastric volvulus is present. The stomach empties into the duodenum above the diaphragm. 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 Pt underwent hiatal hernia repair for gastric volvulus and fixing stomach in place using g-tube which is not meant for feeding. Pt had cardiac event 2n ago c low electrolytes phos 1.6, K 3.1, Mag 1.8 and has been repleted. Pt is on full liquid diet. Per [facility] records, pt is weight stable since 2017. HT: 139.7cm WT: 44kg UBW: 41-44kg BMI: 22.5 Labs: phos 2.5 L Nutrition Diagnosis: increased protein needs r/t healing of surgical site s/p hiatal hernia repair Interventions: 1. Will send ONS Ensure Surgery bid to support healing of surgical site. 2. Encourage pt to consume dairy products to support phosphorus levels. Diet Order: full liquid EER: 1320kcal (30kcal/kg), 55g PRO (1.2g/kg to support healing) Monitoring/Evaluations: ONS tolerance
[2020-04-17] MEDS: PANTOPRAZOLE 20 MG TABLET PO ×2 (10:35→20:20)
[2020-04-17] MEDS: LOSARTAN 50 MG TABLET 25 MG PO (10:35)
--- NOTE | 2020-04-17 12:58 | OT.IP.TRT ---
Current Diagnoses Unspecified atrial fibrillation (04/14/20) Hypotension, unspecified (04/14/20) Other diseases of stomach and duodenum (04/14/20) Surgery Performed Operation Date: 04/14/20 15:15 Actual Procedures p Exploratory Laparotomy, hiatal hernia repair with gastrostomy tube placement(Not Applicable) - Jose Eduardo Gilmore MD Occupational Therapy Treatment Note M2 OT-IP Current Condition Start: 04/15/20 15:58 Freq: Status: Active Protocol: Document 04/15/20 15:41 CCC (Rec: 04/15/20 16:22 [facility] [id number]) Occupational Therapy Current Condition Current Condition Evaluation Date 04/15/20 Treatment Diagnosis Open hiatal hernia repair with gastrostomy tube for a gastric volvulus Diagnosis Onset Date 04/14/20 Post Operative Precautions Abdominal Surgery Precautions Log Roll,Lifting Restrictions, Gait Belt above Incisional Area M3 OT- IP Subjective and Pain Start: 04/15/20 15:58 Freq: Status: Active Protocol: Document 04/17/20 14:47 CGR (Rec: 04/17/20 14:56 CGR [id number]) OT- Subjective Occupational Therapy Visit Type Type Progress Note Visit Start Time 12:46 Visit Stop Time 12:58 Total Visit Minutes 12 Notes pt declined shower but wanted to do a sponge bath OT Pain Assessment Pain Present Pain Present Denied Pain M4 OT- IP ADL's Start: 04/15/20 15:58 Freq: Status: Active Protocol: Document 04/17/20 14:47 CGR (Rec: 04/17/20 14:56 CGR [id number]) OT [id number] Comments OT Self-Feeding Comments not meal time OT ADL-Grooming General Evaluation Grooming Ability Standby Assistance Areas Needing Assistance Face Washing OT ADL-Oral Care Comments Oral Care Comments not performed OT ADL-Dressing General Eval Upper Body Dressing Ability Minimal Assistance Comments OT Dressing Comments hospital gown OT ADL-Toileting Comments OT Toileting Comments pt declined need, pt with kulwinder OT ADL-Bathing Bathing Type Bathing Type Sponge Bath General Evaluation Bathing Ability Minimal Assistance Areas Needing Assistance Retrieving/Setting Up Items, Wash/Dry Upper Body,Wash/Dry Back Comments OT Bathing Comments seated in chair and standing in bathroom M5 OT- IP IADL's Start: 04/15/20 15:58 Freq: Status: Active Protocol: Document 04/15/20 15:41 [facility] (Rec: 04/15/20 16:22 [facility] [id number]) OT-Instrumental Activities of Daily Living Home Safety Awareness Home Safety Comments Pt still a bit confused at this time and therfore may need assist for needs at home pending how pt clears mentally . Pt staets see is very sensative to medications. M6 OT- IP Functional Cognition Start: 04/15/20 15:58 Freq: Status: Active Protocol: Document 04/17/20 14:47 CGR (Rec: 04/17/20 14:56 CGR [id number]) Cognitive Factors Limiting Selfcare Function Cognitive Ability Level of Alertness Alert Patient Orientation Name,Age,Birthday,Month,Date, Year,Day of Week,Place, Situation Attention Span Ability Capable of Focused Attention, Capable of Sustained Attention Ability to Follow Commands Able to Follow Multi-Step Commands Safety Awareness Underestimates Need for Assistance OT- Vision and Hearing OT- Hearing Assessment OT- Hearing Assessment WFL M7 OT- IP Mobility and Balance Start: 04/15/20 15:58 Freq: Status: Active Protocol: Document 04/17/20 14:47 CGR (Rec: 04/17/20 14:56 CGR [email or web address]) OT-Transfer Assessment Sit to and From Stand Sit to and from Stand Contact Guard Assistance,Use of Upper Extremities Transfers Transfer Ability Contact Guard Assistance,Use of Upper Extremities Technique Transfer Destination Chair,Shower Stall Transfer Technique Stand Step Pivot Devices Orthotic/Prosthetic Devices or Brace: No Comments Mobility Comments Pt tolerated session well but displays impulsivity with mobility. Pt stood and ambulated into bathroom without DME and poor safety. OT- Gait Assessment Gait Gait Assistance Required: Contact Guard Assist OT- Balance Assessment Sitting Balance and Reactions Static Sitting Balance Ability Good Dynamic Sitting Balance Ability Fair M8 OT- IP Objective Assessments Start: 04/15/20 15:58 Freq: Status: Active Protocol: Document 04/15/20 15:41 [facility] (Rec: 04/15/20 16:22 [facility] [id number]) OT Gross Range of Motion Upper Extremity Range of Motion Assessment Bilaterally Impaired ROM Impairments RUE 0-80 shoulder flexion, LUE NT due to recent sx. OT Strength Upper Extremity Strength Assessment Bilaterally Impaired Comments Strength Comments BUE strength 3-/5 M9 OT- IP Assessment and Plan Start: 04/15/20 15:58 Freq: Status: Active Protocol: Document 04/17/20 14:47 CGR (Rec: 04/17/20 14:56 CGR [email or web address]) OT Summary Assessment and Plan Potential Rehabilitation Potential Good Analytic Complexity at Evaluation Low Summary OT Impairments Pain,Balance,Functional Cognition,Functional Mobility, Self-Feeding,Grooming,Dressing ,Toilet Transfers,Shower Transfers,Activity Tolerance Progress Towards Goals Slow Progress due to Medical Issues,Slow Progress due to Activity Tolerance,Slow Progress due to Cognition Assessment Summary Pt with limited session today. Pt with poor safety awareness in todays session of sponge bathing. Pt will benefit from continued OT services. Goals Self-Feeding Goal Independent Grooming Goal Independent Dressing Goal Independent Toileting Goal Independent Bathing Goal Independent Toilet Transfer Goal Independent Shower Transfer Goal Independent Patient/Caregiver Education Goal Caregiver Independent Assisting Patient Days to Meet Goals 8 Frequency of Treatment Frequency Of Treatment Once a Day Treatment Plan OT Treatment Plan ADL Training,Functional Cognition Training,Functional Mobility,Patient/Family Education,Discharge Planning Other Treatment Recommendations and Next LB dressing and education of Treatment Focus adaptive equipment if needed. Discharge Recommendations OT Discharge Recommendations Home with Assistance Transportation Needs at Discharge Private Vehicle
--- NOTE | 2020-04-17 13:11 | PT.IPTN ---
Current Diagnoses Unspecified atrial fibrillation (04/14/20) Hypotension, unspecified (04/14/20) Other diseases of stomach and duodenum (04/14/20) Surgery Performed Operation Date: 04/14/20 15:15 Actual Procedures p Exploratory Laparotomy, hiatal hernia repair with gastrostomy tube placement(Not Applicable) - Jose Eduardo Gilmore MD Physical Therapy Treatment Note M2 PT-IP Current Condition Start: 04/15/20 09:38 Freq: NEEDED Status: Active Protocol: Document 04/15/20 16:19 HH (Rec: 04/15/20 16:50 [id number]) Physical Therapy Current Condition Current Condition Evaluation Date 04/15/20 Treatment Diagnosis Exploratory laparotomy, hiatal hernia repair with gastrostomy tube placemen Onset Date 04/14/20 Precautions Abdominal Surgery Precautions Log Roll,Lifting Restrictions, Gait Belt above Incisional Area Weight Bearing Status Weight Bearing Status Full Weight Bearing M3 PT-IP Subjective Start: 04/15/20 09:38 Freq: NEEDED Status: Active Protocol: Document 04/17/20 12:48 HH (Rec: 04/17/20 13:11 [id number]) Subjective Physical Therapy Visit Type Type Treatment Note Visit Start Time 12:06 Visit Stop Time 12:35 Total Visit Minutes 29 Number of LANGUAGE ARTS TEACHER Visits 0 Physical Therapy Visit Comments Patient Comments I am doing way better today and i want to go for a walk Therapy Pain Assessment Pain When Pain Assessed During Mobility Pain Present Pain Present Pain Reported Location epigastric Intensity 2 Scale Used Numeric (0 - 10) Description Pressure,With Movement Pain Behaviors Facial Grimacing,Holding Area Pain Management Techniques Re-positioning,Timing of Activity with Medications M4 PT-IP Mobility and Gait Start: 04/15/20 09:38 Freq: NEEDED Status: Active Protocol: Document 04/17/20 12:48 HH (Rec: 04/17/20 13:11 [id number]) PT-Transfer Assessment Sit to and From Stand Sit to and from Stand Contact Guard Assistance,Use of Upper Extremities Equipment Transfer Assistive Device Gait Belt,Front Wheeled Walker Orthotic/Prosthetic Devices or Brace: No Transfers Transfer Destination Chair Transfer Technique Stand Step Pivot Transfer Ability Level of Assist Contact Guard Assistance,Use of Upper Extremities Comments Mobility Comments Pt was in chair upon PT arrival. A x Ox 4 BP at 136/89 HR 68 SpO2 95%. Pt was talkative and stated she felt a lot better and agreed to mobilize with PT as tolerated. RN came to clamp IV and detached tele monitor. Pt then removed abdominal pillow and able to stand up with CGA with FWW. She amb to sink counter for self care. She stood without support intermittently but no signs of LOB. She then turned around and walked to hallway with CGA and FWW. Pt did walk with a severe flexed trunk d/t her scoliosis. She completed 200 ft with FWW and did not require any rest breaks. She returned to her room and sat in chair with minimal use of UEs to descend. BP at 158/84 HR 69 SpO2 95%. Pt denied any discomfort. Call light placed within reach and rec pt to amb with nursing as needed to promote mobility. Gait Assessment Gait Gait Assistance Required: Contact Guard Assist Distance (Feet) 200 Able to Maintain Weight Bearing Status Yes During Gait Assistive Devices Assistive Device Gait Belt,Front Wheeled Walker Orthotic/Prosthetic Devices or Brace: No Gait Deviations General Gait Pattern Antalgic,Decreased Stride Length,Decreased Feet Clearance,Flexed Trunk,Step-to Gait Factors Limiting Gait Function Factors Limiting Gait Function Decreased Activity Tolerance, Decreased Strength,Limited Range of Motion,Pain,Poor Balance,Poor Safety Awareness, Respiratory Distress Comments Gait Comments See mobility comments for further details. Stair Climbing Assessment Comments Stair Climbing Comments unable to assess PT-Balance Assessment Sitting Balance and Reactions Static Sitting Balance Ability Normal Dynamic Sitting Balance Ability Good Standing Balance and Reactions Static Standing Balance Ability Good Dynamic Standing Balance Ability Good Device Used FWW M5 PT-IP Objective Assessments Start: 04/15/20 09:38 Freq: NEEDED Status: Active Protocol: Document 04/15/20 16:19 (Rec: 04/15/20 16:50 [id number]) Orientation Orientation/Cognition Level of Alertness Confusional State Orientation Name,Age,Birthday,Month,Date, Year,Day of Week,Place, Situation Language Function Ability Hard of Hearing Safety Awareness Decreased Safety Awareness Memory Description Short Term Impaired Comments see mobility comments. Pt was somewhat confused Gross Range of Motion Upper Extremity ROM Impairments per OT ,pt's UE only able to reach approx 85 degrees flexion Strength Upper Extremity Strength Assessment Bilaterally Impaired Lower Extremity Strength Assessment Bilaterally Impaired Hip 3+/5 Knee 3+/5 Coordination Assessment Gross Coordination Gross Coordination WNL M6 PT-IP Treatment Start: 04/15/20 09:38 Freq: NEEDED Status: Active Protocol: Document 04/16/20 10:22 SP (Rec: 04/16/20 13:05 SP [id number]) Physical Therapy Treatment Education Education Provided Precautions,Weight Bearing Status,Safety M7 PT-IP Assessment and Plan Start: 04/15/20 09:38 Freq: NEEDED Status: Active Protocol: Document 04/17/20 12:48 HH (Rec: 04/17/20 13:11 HH [id number]) PT Summary Assessment and Plan Potential Rehabilitation Potential Good Status of Condition at Evaluation Stable Summary Impairments Pain,ROM,Strength,Balance,Bed Mobility,Transfers,Gait, Activity Tolerance Progress Towards Goals Slow Progress due to Pain,Slow Progress due to Medical Issues,Slow Progress due to Activity Tolerance Assessment Summary Pt showed improved progress today with increased amb distance with FWW, less assistance needed for overall mobility. Pt's vitals were stable and discomfort noted. Expect pt to cont improve accordingly as diet restrictions. Pt will most likely be able to d/c home with family assistance and home health. Goals Bed Mobility Goal Standby Assistance Transfer Goal Standby Assistance,Front Wheeled Walker Gait Goal Standby Assistance,Front Wheel Walker Gait Distance 150 Other Goals 3 MARCI with no rails Days to Meet Goals 5 Frequency of Treatment Frequency Of Treatment Once a Day Treatment Plan Physical Therapy Treatment Plan Bed Mobility Training,Transfer Training,Gait Training, Therapeutic Exercise,Balance Retraining,Post Op Education, Discharge Planning,Hot or Cold Pack,Neuromuscular Re-ed Other Recommendations and Next Treatment check vitals Focus mobility as laurent review precautions, gait further distance and stair mgt when appropriate, caregiver training prior to DC. Recommendations To Nursing Amount of Assist Needed 1 Person Assist Discharge Recommendations PT Discharge Recommendations Home with Assistance,Home with 24/ Assist,Home Health Transportation Needs at Discharge Private Vehicle,Wheelchair/ Cabulance
--- NOTE | 2020-04-17 14:00 | PC.NURSE ---
Am shift Pt is A/o x2, forgetful. Impulsive at times. 1PA with FWW. po2 96% RA. Pt has remained SR/SB all shift, amioderione gtt completed, Remains with rate 55-65. Holding off on PO, monitor with Tele for now. No CP no SOB. lungs dim with severe kyphosis. Pt declines pain control most of shift. Avoid narcotics d/t increased confusion. J tube clamped with dressing CDI. Tolerating PO, advanced to diet as tolerated and Pt is cautious with meal, toast and soup with out nausea. Order to remove miramontes. IV SL. BA and Chair alarm.
--- NOTE | 2020-04-17 14:16 | P.PN_ITS ---
Subjective Subjective Date Patient Seen: 04/17/20 Time Patient Seen: 14:17 Interval history: No acute events over night. Pt says she is feeling much better. She has passed some gas, but no stool. She is tolerating her full liquid diet. Exam Vital Signs (past 8 hours): - 04/17/20 06:17 04/17/20 06:26 04/17/20 07:00 Temperature Pulse Rate 58 L 56 L Respiratory Rate 17 14 Blood Pressure 118/56 L 129/64 Pulse Oximetry 96 96 97 04/17/20 07:44 04/17/20 08:00 04/17/20 09:00 Temperature 98.2 F Pulse Rate 58 L 58 L 66 Respiratory Rate 16 7 L 20 Blood Pressure 131/61 133/63 132/61 Pulse Oximetry 96 94 93 04/17/20 10:00 04/17/20 11:00 04/17/20 12:00 Temperature 98.7 F Pulse Rate 65 65 63 Respiratory Rate 28 H 32 H 24 Blood Pressure 91/52 L 139/67 Pulse Oximetry 94 95 95 04/17/20 13:00 Temperature Pulse Rate 67 Respiratory Rate 24 Blood Pressure Pulse Oximetry Oxygen Delivery Method Room Air Oxygen Flow Rate 0 Narrative Exam Narrative: GENERAL: Alert, comfortable. Appears stated age. Answers questions promptly and appropriately. Vital signs noted. HENT: Normocephalic, atraumatic. Hearing intact. EYES: Conjunctiva pink, sclera white, no periorbital swelling. CARDIOVASCULAR: Bradycardic at 58 with a regular rhythm.. No pedal edema. RESPIRATORY: Non-tachypneic, breathing comfortably on room air. GASTROINTESTINAL: Abdomen soft and non-distended, dressings clean and intact, G- tube in place and capped GENITALURINARY: No flank tenderness. MUSCULOSKELETAL: Equal tone and mass bilaterally. SKIN: Warm, dry, soft, appropriate color for ethnicity. No other lesions, rashes, or wounds. NEURO: Alert and Oriented X 3. No gross sensory deficits, or cognitive issues. PSYCH: Appropriate affect and mood. Objective Labs Result Diagrams: 04/17/20 05:50 04/17/20 05:50 Labs: Laboratory Results - last 24 hr 04/16/20 04/17/20 04/17/20 14:10 05:50 05:50 WBC 7.7 RBC 3.40 L Hgb 10.1 L Hct 30.5 L MCV 89.7 MCH 29.8 MCHC 33.2 RDW 13.8 Plt Count 160 Neut % (Auto) 70.7 Lymph % (Auto) 16.6 L [place] % (Auto) 9.8 Eos % (Auto) 2.1 Baso % (Auto) 0.8 Neut # (Auto) 5500 Lymph # (Auto) 1300 [place] # (Auto) 800 Eos # (Auto) 200 Baso # (Auto) 100 Sodium 142 Potassium 3.7 Chloride 112 H Carbon Dioxide 28 BUN 14 Creatinine 0.70 Estimated GFR > 60.0 BUN/Creatinine Ratio 20.0 Glucose 98 Calcium 8.1 L Phosphorus 1.4 L 2.5 L D Magnesium 2.2 2.2 04/17/20 05:50 WBC RBC Hgb Hct MCV MCH MCHC RDW Plt Count Neut % (Auto) Lymph % (Auto) [place] % (Auto) Eos % (Auto) Baso % (Auto) Neut # (Auto) Lymph # (Auto) [place] # (Auto) Eos # (Auto) Baso # (Auto) Sodium 140 Potassium 4.1 Chloride 110 H Carbon Dioxide 28 BUN 17 Creatinine 0.76 Estimated GFR > 60.0 BUN/Creatinine Ratio 22.4 H Glucose 93 Calcium 8.1 L Phosphorus Magnesium Assessment & Plan Assessment and plan (1) Atrial fibrillation with RVR: Problem details: Patient is now in sinus rhythm with bradycardia, and normotensive Status: Acute (2) Organoaxial gastric volvulus: Problem details: 85-year-old female with a chronic large hiatal hernia now with acute organoaxial gastric volvulus. She is now postop day 3 from open repair of paraesophageal hernia and gastric volvulus. Status: Acute Assessment & Plan narrative: This is an 85-year-old woman who is postop day 3 from open repair of a paraesophageal hernia and gastric volvulus. Two days ago she went into atrial fibrillation with RVR. She is still on amiodarone, and is now normotensive with a heart rate in the 50s. She is feeling much better. She is passing some gas but no stool. She would like to try advancing her diet a little bit. We need to remove her Parr. We are awaiting full return of bowel function, patient able to ambulate safely and manage at home, and recommendations from the primary care and bi solutions architect regarding her amiodarone. Plan: Remove Parr Advanced diet as tolerated COVID-19 COVID-19 status: Negative Result date/Date tested (Pos, Neg/Pending): 04/14/20 Time Spent With Patient Time with patient: 25 - 35 minutes
[2020-04-17] MEDS: ENOXAPARIN 30 MG/0.3 ML SYRINGE SUBCUT (14:33)
[2020-04-17] MEDS: ACETAMINOPHEN 325 MG TABLET 650 MG PO ×2 (14:35→20:20)
[2020-04-17] MEDS: SODIUM CHLORIDE 0.9% FLUSH 10 ML IV (18:43)
[2020-04-17] MEDS: KETOROLAC 15 MG/ML VIAL IV (20:20)
[2020-04-17] MEDS: ALPRAZolam 0.25 MG TABLET PO (20:22)
[2020-04-18] VITALS (13 sets, daily range): BP systolic 140–191; BP diastolic 64–84; PULSE 60–74; RESP 15–26; TEMP 36.2–36.9; O2SAT 92–96
[2020-04-18] MEDS: SODIUM CHLORIDE 0.9% FLUSH 10 ML IV ×3 (00:17→05:49)
[2020-04-18] MEDS: METOCLOPRAMIDE 10 MG/2 ML INJ 5 MG IV ×4 (00:17→18:15)
[2020-04-18] MEDS: KETOROLAC 15 MG/ML VIAL IV ×3 (04:28→20:31)
[2020-04-18] MEDS: ACETAMINOPHEN 325 MG TABLET 650 MG PO ×3 (05:49→18:15)
[2020-04-18] MEDS: SODIUM,POTASSIUM PHOSPHATES PACKET 1 EACH PO (08:27)
[2020-04-18] MEDS: LOSARTAN 50 MG TABLET 25 MG PO (08:27)
[2020-04-18] MEDS: PANTOPRAZOLE 20 MG TABLET PO ×2 (08:27→20:31)
[2020-04-18] MEDS: ENOXAPARIN 30 MG/0.3 ML SYRINGE SUBCUT (08:27)
--- NOTE | 2020-04-18 09:01 | P.PN_ITS ---
Subjective Subjective Date Patient Seen: 04/18/20 Time Patient Seen: 09:02 Interval history: Atrial fibrillation Patient here status post gastric volvulus surgery. She developed incidental atrial fibrillation. She currently is on no medications for atrial fibrill ation. And is in sinus rhythm. She has no chest pain no shortness of breath no palpitations. Eating normal foods. Ambulating. Passing gas. Has not had a bowel movement. Will give her some prune juice. Anticipating being discharged home with home health pending surgeons for discharge Exam Vital Signs (past 8 hours): - 04/18/20 04:30 04/18/20 04:31 04/18/20 08:00 Temperature 97.2 F L 98.4 F Pulse Rate 63 60 Respiratory Rate 26 H 22 Blood Pressure 146/74 H 162/75 H Pulse Oximetry 95 95 96 Oxygen Delivery Method Room Air Oxygen Flow Rate 0 Narrative Exam Narrative: Patient is examined in her hospital bed she is sitting up eating breakfast is awake and alert and conversant seems in no distress. Lungs are entirely clear. Cardiac exam regular rhythm at approximately 60 with no ectopics. Carotids 2+ no bruits. Abdominal exam. And is benign bowel sounds present Objective Labs Result Diagrams: 04/17/20 05:50 04/17/20 05:50 Assessment & Plan Assessment & Plan narrative: 1. History of gastric volvulus status post surgical repair. 2. Postop atrial fibrillation now in sinus rhythm. Had an attempted cardioversion, treated with amiodarone drip. Patient is asymptomatic in sinus rhythm has been approximately 60s. She will be discharged as per surgeon's. Only medication that will be her losartan 25 mg daily She has follow-up with Dr. Pinzon in 2 weeks
--- NOTE | 2020-04-18 10:11 | PM.PN.1 ---
Exam Vital Signs (past 8 hours): - 04/18/20 04:30 04/18/20 04:31 04/18/20 08:00 Temperature 97.2 F L 98.4 F Pulse Rate 63 60 Respiratory Rate 26 H 22 Blood Pressure 146/74 H 162/75 H Pulse Oximetry 95 95 96 04/18/20 08:15 Temperature Pulse Rate Respiratory Rate Blood Pressure Pulse Oximetry 96 Oxygen Delivery Method Room Air Oxygen Flow Rate 0 Objective Labs Result Diagrams: 04/17/20 05:50 04/17/20 05:50 Assessment & Plan Assessment & Plan narrative: Further discussions son Ulises. a patient has a memory impairment and requires from [facility]. Living situation home to be arranged more appropriate for discharge. [place] will remain in [place] [facility] for another day observing her blood pressure and her atrial fibrillation.
--- NOTE | 2020-04-18 10:22 | OT.IP.TRT ---
Current Diagnoses Unspecified atrial fibrillation (04/14/20) Hypotension, unspecified (04/14/20) Other diseases of stomach and duodenum (04/14/20) Surgery Performed Operation Date: 04/14/20 15:15 Actual Procedures p Exploratory Laparotomy, hiatal hernia repair with gastrostomy tube placement(Not Applicable) - Jose Eduardo Gilmore MD Occupational Therapy Treatment Note M2 OT-IP Current Condition Start: 04/15/20 15:58 Freq: Status: Active Protocol: Document 04/15/20 15:41 [facility] (Rec: 04/15/20 16:22 [facility] [id number]) Occupational Therapy Current Condition Current Condition Evaluation Date 04/15/20 Treatment Diagnosis Open hiatal hernia repair with gastrostomy tube for a gastric volvulus Diagnosis Onset Date 04/14/20 Post Operative Precautions Abdominal Surgery Precautions Log Roll,Lifting Restrictions, Gait Belt above Incisional Area M3 OT- IP Subjective and Pain Start: 04/15/20 15:58 Freq: Status: Active Protocol: Document 04/18/20 13:05 [facility] (Rec: 04/18/20 13:18 [facility] [email or web address]) OT- Subjective Occupational Therapy Visit Type Type Progress Note Visit Start Time 09:48 Visit Stop Time 10:22 Total Visit Minutes 34 Occupational Therapy Visit Comments Patient Comments I would like to get cleaned up . OT Pain Assessment Pain When Pain Assessed During Mobility Pain Present Pain Present Denied Pain M4 OT- IP ADL's Start: 04/15/20 15:58 Freq: Status: Active Protocol: Document 04/18/20 13:05 [facility]GR (Rec: 04/18/20 13:18 CGR [email or web address]) OT [id number] Comments OT Self-Feeding Comments not meal time OT ADL-Grooming General Evaluation Grooming Ability Standby Assistance Areas Needing Assistance Combing/Brushing Hair,Face Washing Comments OT Grooming Comments Pt stood for washing face and brushing hair. Pt wanted to straighten her hair and was able to perform without assist but asked for help for throughroughness. OT ADL-Oral Care General Eval Oral Care Ability Independent Areas of Assistance Brushing Teeth Comments Oral Care Comments standign at sink OT ADL-Dressing Comments OT Dressing Comments not performed OT ADL-Toileting General Evaluation Toileting Ability Standby Assistance Devices Toileting Assistive Devices Grab Bars Comments OT Toileting Comments seated on toilet OT ADL-Bathing Comments OT Bathing Comments not performed M5 OT- IP IADL's Start: 04/15/20 15:58 Freq: Status: Active Protocol: Document 04/15/20 15:41 [facility] (Rec: 04/15/20 16:22 [facility] [email or web address]) OT-Instrumental Activities of Daily Living Home Safety Awareness Home Safety Comments Pt still a bit confused at this time and therefore may need assist for needs at home pending how pt clears mentally . Pt states see is very sensitive to medications. M6 OT- IP Functional Cognition Start: 04/15/20 15:58 Freq: Status: Active Protocol: Document 04/18/20 13:05 CGR (Rec: 04/18/20 13:18 CGR [email or web address]) Cognitive Factors Limiting Selfcare Function Cognitive Ability Level of Alertness Alert Patient Orientation Name,Situation Attention Span Ability Capable of Focused Attention, Capable of Sustained Attention Ability to Follow Commands Able to Follow Multi-Step Commands Cognitive Comments Cognitive Assessment Comments Pt is forgetful and slightly implulsive. Pt would benefit from formal cog assessment. OT- Vision and Hearing OT- Hearing Assessment OT- Hearing Assessment WFL M7 OT- IP Mobility and Balance Start: 04/15/20 15:58 Freq: Status: Active Protocol: Document 04/18/20 13:05 [facility]GR (Rec: 04/18/20 13:18 CGR [email or web address]) OT- Bed Mobility Assessment Rolling Level of Assistance Standby Assistance Supine to Sit Supine to Sit Assist Standby Assistance Scooting Scooting to Edge of Bed Standby Assistance OT-Transfer Assessment Sit to and From Stand Sit to and from Stand Standby Assistance Transfers Transfer Ability Standby Assistance Technique Transfer Destination Bed,Chair,Toilet Transfer Technique Stand Step Pivot Devices Transfer Assistive Devices Gait Belt,Front Wheeled Walker Comments Mobility Comments mobility around the room OT- Gait Assessment Gait Gait Assistance Required: Standby Assistance Assistive Devices Assistive Device Gait Belt,Front Wheeled Walker Comments Gait Ability Comments mobility around the room OT- Balance Assessment Sitting Balance and Reactions Static Sitting Balance Ability Good Dynamic Sitting Balance Ability Fair M8 OT- IP Objective Assessments Start: 04/15/20 15:58 Freq: Status: Active Protocol: Document 04/15/20 15:41 [facility] (Rec: 04/15/20 16:22 [facility] [email or web address]) OT Gross Range of Motion Upper Extremity Range of Motion Assessment Bilaterally Impaired ROM Impairments RUE 0-80 shoulder flexion, LUE NT due to recent sx. OT Strength Upper Extremity Strength Assessment Bilaterally Impaired Comments Strength Comments BUE strength 3-/5 M9 OT- IP Assessment and Plan Start: 04/15/20 15:58 Freq: Status: Active Protocol: Document 04/18/20 13:05 CGR (Rec: 04/18/20 13:18 CGR [email or web address]) OT Summary Assessment and Plan Potential Rehabilitation Potential Good Analytic Complexity at Evaluation Low Summary OT Impairments Pain,Balance,Functional Cognition,Functional Mobility, Self-Feeding,Grooming,Dressing ,Toilet Transfers,Shower Transfers,Activity Tolerance Progress Towards Goals Slow Progress due to Medical Issues,Slow Progress due to Activity Tolerance,Slow Progress due to Cognition Assessment Summary Pt did well today with ADLs. Pt progressing with functional mobility but would benefit from cog assessment at next session. Goals Self-Feeding Goal Independent Grooming Goal Independent Dressing Goal Independent Toileting Goal Independent Bathing Goal Independent Toilet Transfer Goal Independent Shower Transfer Goal Independent Patient/Caregiver Education Goal Caregiver Independent Assisting Patient Days to Meet Goals 8 Frequency of Treatment Frequency Of Treatment Once a Day Treatment Plan OT Treatment Plan ADL Training,Functional Cognition Training,Functional Mobility,Patient/Family Education,Discharge Planning Other Treatment Recommendations and Next LB dressing and education of Treatment Focus adaptive equipment if needed. Discharge Recommendations OT Discharge Recommendations Home with Assistance Transportation Needs at Discharge Private Vehicle
--- NOTE | 2020-04-18 10:49 | CM.DPC ---
DCP: assessment: Spoke this morning with Dr. Guerrero and pt's son Ulises: [phone]. Pt is continuing to progress and very much wants a d/c to home setting. Ulises confirmed that the family very much wanted to support pt in this as she is a person who would do very poorly in the assisted setting. He states pt and her (who he reports has dementia and needs supportive care) do have the financial means to pay for what may be needed going forward. Dr. Guerrero stated that he was keeping pt again for medical management and with a plan for d/c home with home health services tomorrow. Dr. Franco is here now and has just talked with Ulises and the pt. He agrees with plan for home tomorrow. He states would care is minimal: wet to dry dressing. Pt has feeding tube is place but this is only used as a tool anchor the stomach post surgery. He agrees to make this clear in his progress note. He stated this is NOT for any feeding purpose. Have now discussed HH agency specifics with Ulises and pt. Face/Face had been completed earlier by Monserrat Estrada and Dr. Gilmore with plan for RN/PT/OT/CASTING TECHNICIAN in case the plan changed from SNF to Home. Agency choice: [facility]: [facility] accepts and confirms that pt can be seen likely on Monday but for sure by /04/22. Ulises and pt are updated and given [facility] brochure. Lise/ is updated to release the referral.
--- NOTE | 2020-04-18 11:02 | P.PN_ITS ---
Subjective Subjective Date Patient Seen: 04/18/20 Time Patient Seen: 11:02 Exam Vital Signs (past 8 hours): - 04/18/20 04:30 04/18/20 04:31 04/18/20 08:00 Temperature 97.2 F L 98.4 F Pulse Rate 63 60 Respiratory Rate 26 H 22 Blood Pressure 146/74 H 162/75 H Pulse Oximetry 95 95 96 04/18/20 08:15 Temperature Pulse Rate Respiratory Rate Blood Pressure Pulse Oximetry 96 Oxygen Delivery Method Room Air Oxygen Flow Rate 0 Narrative Exam Narrative: Lungs are clear to auscultation. Good effort. Heart regular rate and rhythm. Monitor shows sinus rhythm. She has a 2 to 3/6 systolic mur mur heard best at the base. Abdomen is scaphoid soft. Dressing is dry. The gastrostomy tube site looks fine. Objective Labs Result Diagrams: 04/17/20 05:50 04/17/20 05:50 Assessment & Plan Post-op Postoperative Procedures: Procedures Operation Date: 04/14/20 15:15 Actual Procedures Side Surgeon p Exploratory Laparotomy, hiatal hernia repair with gastrostomy tube placement Not Applicable Jose Eduardo Gilmore MD Postoperative status narrative: Doing well from an operative point of view. Postoperative plan narrative: Suppository. One more day for cardiac observation per Medicine.
[2020-04-18] MEDS: BISACODYL 10 MG SUPP PR (11:35)
--- NOTE | 2020-04-18 12:14 | PT.IPTN ---
Current Diagnoses Unspecified atrial fibrillation (04/14/20) Hypotension, unspecified (04/14/20) Other diseases of stomach and duodenum (04/14/20) Surgery Performed Operation Date: 04/14/20 15:15 Actual Procedures p Exploratory Laparotomy, hiatal hernia repair with gastrostomy tube placement(Not Applicable) - Jose Eduardo Gilmore MD Physical Therapy Treatment Note M2 PT-IP Current Condition Start: 04/15/20 09:38 Freq: NEEDED Status: Active Protocol: Document 04/15/20 16:19 HH (Rec: 04/15/20 16:50 HH [id number]) Physical Therapy Current Condition Current Condition Evaluation Date 04/15/20 Treatment Diagnosis Exploratory laparotomy, hiatal hernia repair with gastrostomy tube placemen Onset Date 04/14/20 Precautions Abdominal Surgery Precautions Log Roll,Lifting Restrictions, Gait Belt above Incisional Area Weight Bearing Status Weight Bearing Status Full Weight Bearing M3 PT-IP Subjective Start: 04/15/20 09:38 Freq: NEEDED Status: Active Protocol: Document 04/18/20 11:45 KS (Rec: 04/18/20 13:45 KS [id number]) Subjective Physical Therapy Visit Type Type Treatment Note Visit Start Time 11:45 Visit Stop Time 12:14 Total Visit Minutes 29 Number of HEEL TOP LIFT SPLITTER Visits 1 Physical Therapy Visit Comments Patient Comments Pt agreeable to therapy. M4 PT-IP Mobility and Gait Start: 04/15/20 09:38 Freq: NEEDED Status: Active Protocol: Document 04/18/20 11:45 KS (Rec: 04/18/20 13:45 KS [id number]) PT-Bed Mobility Assessment Scooting Scooting to Edge of Bed Contact Guard Assistance PT-Transfer Assessment Sit to and From Stand Sit to and from Stand Contact Guard Assistance,Use of Upper Extremities Equipment Transfer Assistive Device Gait Belt,Front Wheeled Walker Orthotic/Prosthetic Devices or Brace: No Transfers Transfer Destination Chair,Toilet Transfer Technique pt ambulated w/ FWW Transfer Ability Level of Assist Contact Guard Assistance,Use of Upper Extremities Comments Mobility Comments Pt was in chair upon arrival from therapy. Pts BP:191/88 in sitting, but asymptomatic and RN present and approved therapy. Pt CGA for scooting to EOC and CGA for sit<>stand w/ FWW. Pt able to maintain standing balance for suppository given by nursing. Pt ambulated around room ~20 ft w/ FWW and CGA and requested to use toilet. Pt ambulted to toilet and stand<> sit CGA. Able to mary jane/doff own briefs and perform pericare. Pt then ambulated ~160 [address] hallway w/ CGA. Pt denied any SOB, fatigue, dizziness or pain. Pt took 2x short standing rest breaks at therapists request to focus on breathing. Pt returned to room and transferred to chair CGA. BP reassessed at 197/90, nursing notified. Bilateral swelling in LE, encouraged pt to perform ankle pumps and keep legs elevated to promote blood flow. Pt left w/ all needs in reach. Gait Assessment Gait Gait Assistance Required: Contact Guard Assist,1 Person Assist Distance (Feet) 200 Able to Maintain Weight Bearing Status Yes During Gait Assistive Devices Assistive Device Gait Belt,Front Wheeled Walker Orthotic/Prosthetic Devices or Brace: No Gait Deviations General Gait Pattern Antalgic,Decreased Stride Length,Decreased Feet Clearance,Flexed Trunk,Step-to Gait Factors Limiting Gait Function Factors Limiting Gait Function Decreased Activity Tolerance, Decreased Strength,Limited Range of Motion,Pain,Poor Balance,Poor Safety Awareness, Respiratory Distress Comments Gait Comments Pt ambulated ~200 ft total w/ FWW and CGA. Pt had good tolerance for ambulation today and denied any symptoms. Pt demonstrated good use of FWW, w/ min cues when sit<>stand. Pt has extreme kyphosis that improves slightly w/ cues. Stair Climbing Assessment Comments Stair Climbing Comments Did not assess d/t high BP PT-Balance Assessment Sitting Balance and Reactions Static Sitting Balance Ability Normal Dynamic Sitting Balance Ability Good Standing Balance and Reactions Static Standing Balance Ability Good Dynamic Standing Balance Ability Good Device Used FWW M5 PT-IP Objective Assessments Start: 04/15/20 09:38 Freq: NEEDED Status: Active Protocol: Document 04/15/20 16:19 (Rec: 04/15/20 16:50 [id number]) Orientation Orientation/Cognition Level of Alertness Confusional State Orientation Name,Age,Birthday,Month,Date, Year,Day of Week,Place, Situation Language Function Ability Hard of Hearing Safety Awareness Decreased Safety Awareness Memory Description Short Term Impaired Comments see mobility comments. Pt was somewhat confused Gross Range of Motion Upper Extremity ROM Impairments per OT ,pt's UE only able to reach approx 85 degrees flexion Strength Upper Extremity Strength Assessment Bilaterally Impaired Lower Extremity Strength Assessment Bilaterally Impaired Hip 3+/5 Knee 3+/5 Coordination Assessment Gross Coordination Gross Coordination WNL M6 PT-IP Treatment Start: 04/15/20 09:38 Freq: NEEDED Status: Active Protocol: Document 04/18/20 11:45 KS (Rec: 04/18/20 13:45 KS [id number]) Physical Therapy Treatment Exercises Exercises Ankle Pumps Education Education Provided Precautions,Weight Bearing Status,Safety M7 PT-IP Assessment and Plan Start: 04/15/20 09:38 Freq: NEEDED Status: Active Protocol: Document 04/18/20 11:45 KS (Rec: 04/18/20 13:45 KS [id number]) PT Summary Assessment and Plan Potential Rehabilitation Potential Good Status of Condition at Evaluation Stable Summary Impairments Pain,ROM,Strength,Balance,Bed Mobility,Transfers,Gait, Activity Tolerance Progress Towards Goals Slow Progress due to Pain,Slow Progress due to Medical Issues,Slow Progress due to Activity Tolerance Assessment Summary Pt had good tolerance for activity today, CGA for mobility and ambulation w/ FWW . Pt ambulated ~200 ft w/ cues for breathing and posture. Unable to assess stairs today d/t high BP, but pt will require stair training prior to d/c if going home. Pts BP high, but stable w/o symptoms. Encouraged pt to complete ankle pumps to d/c swelling to which she agreed. Pt will benefit from HHPT to improve strength and functional mobility. Goals Bed Mobility Goal Standby Assistance Transfer Goal Standby Assistance,Front Wheeled Walker Gait Goal Standby Assistance,Front Wheel Walker Gait Distance 150 Other Goals 3 MARCI with no rails Days to Meet Goals 5 Frequency of Treatment Frequency Of Treatment Once a Day Treatment Plan Physical Therapy Treatment Plan Bed Mobility Training,Transfer Training,Gait Training, Therapeutic Exercise,Balance Retraining,Post Op Education, Discharge Planning,Hot or Cold Pack,Neuromuscular Re-ed Other Recommendations and Next Treatment check vitals Focus mobility as laurent review precautions, gait further distance and stair mgt when appropriate, caregiver training prior to DC. Recommendations To Nursing Amount of Assist Needed 1 Person Assist Discharge Recommendations PT Discharge Recommendations Home with Assistance,Home with 24/7 Assist,Home Health Transportation Needs at Discharge Private Vehicle,Wheelchair/ Cabulance
[2020-04-18] MEDS: ALPRAZolam 0.25 MG TABLET PO (20:31)
--- NOTE | 2020-04-18 21:56 | PC.NURSE ---
Pt alert and oriented, up to chair at bedside or walking in room and in the soares this shift. Dressing dry and intact, G tube remains clamped. Denies pain or discomfort. VSS, O2 Sats 96% on rm air. Able to make needs known. Had a small brown bm this evening after dinner.
[2020-04-19] VITALS: O2SAT 94
[2020-04-19] MEDS: ACETAMINOPHEN 325 MG TABLET 650 MG PO (00:28)
[2020-04-19] MEDS: METOCLOPRAMIDE 10 MG/2 ML INJ 5 MG IV ×2 (00:30→06:11)
[2020-04-19 00:36] VITALS: BP 133/64; PULSE 61; RESP 16; TEMP 36.4; O2SAT 94
[2020-04-19 05:01] VITALS: BP 124/106; PULSE 63; RESP 63; TEMP 36.6; O2SAT 96
[2020-04-19] MEDS: KETOROLAC 15 MG/ML VIAL IV (05:02)
[2020-04-19 05:07] VITALS: BP 167/72; O2SAT 96
[2020-04-19] MEDS: SODIUM CHLORIDE 0.9% FLUSH 10 ML IV (06:13)
--- NOTE | 2020-04-19 06:51 | PC.NURSE ---
Pt states that she is having minimal pain. Pt declined both doses of scheduled Acetaminophen. Rates incisional pain at 08/23. Abd drsg with G Tube CD,I. G tube remains clamped. Pt OOB to bathroom once with standby assistance and tolerated well.
[2020-04-19 08:05] VITALS: BP 176/82; PULSE 59; RESP 18; TEMP 36.6; O2SAT 96
--- NOTE | 2020-04-19 08:20 | P.PN_ITS ---
Subjective Subjective Date Patient Seen: 04/19/20 Time Patient Seen: 08:20 Interval history: Atrial fibrillation. Patient feels the essentially well. She has no a significant symptoms had a small bowel movement yesterday apparently. Anticipating going home as per the Dr. Franco. No chest pain no shortness breath no palpitation she is unaware of her heartbeat. She does have a walker home and she was advised to do some activity with her walker. Exam Vital Signs (past 8 hours): - 04/19/20 00:36 04/19/20 05:01 04/19/20 05:07 Temperature 97.5 F L 97.8 F Pulse Rate 61 63 Respiratory Rate 16 63 H Blood Pressure 133/64 124/106 H 167/72 H Pulse Oximetry 94 96 96 Oxygen Delivery Method Room Air Oxygen Flow Rate 0 Narrative Exam Narrative: Patient is a examined today she is using her bedside bed appears in no distress. Blood pressure is running approximately 160/70. Heart rate has been normal sinus rhythm approximately 60. Lungs are clear heart has regular rhythm no murmur gallop. She has no edema Objective Labs Result Diagrams: 04/17/20 05:50 04/17/20 05:50 Assessment & Plan Assessment & Plan narrative: 1. Status post abdominal surgery as per Dr. Franco . 2. History of atrial fibrillation postoperatively may be incidental episode. Patient has been in sinus rhythm now for couple days. She is tolerating medications well. She will be followed by for termination further evaluation. 3. Hypertension relatively stable. 4. Patient medically stable for discharge pending surgical evaluation
[2020-04-19] MEDS: ENOXAPARIN 30 MG/0.3 ML SYRINGE SUBCUT (08:48)
[2020-04-19] MEDS: PANTOPRAZOLE 20 MG TABLET PO (08:49)
[2020-04-19] MEDS: SODIUM,POTASSIUM PHOSPHATES PACKET 1 EACH PO (08:49)
[2020-04-19] MEDS: LOSARTAN 50 MG TABLET 25 MG PO (08:49)
[2020-04-19 12:00] VITALS: BP 176/81; PULSE 63; RESP 16; TEMP 37; O2SAT 96
--- NOTE | 2020-04-19 12:24 | PT.IPTN ---
Current Diagnoses Unspecified atrial fibrillation (04/14/20) Hypotension, unspecified (04/14/20) Other diseases of stomach and duodenum (04/14/20) Surgery Performed Operation Date: 04/14/20 15:15 Actual Procedures p Exploratory Laparotomy, hiatal hernia repair with gastrostomy tube placement(Not Applicable) - Jose Eduardo Gilmore MD Physical Therapy Treatment Note M2 PT-IP Current Condition Start: 04/15/20 09:38 Freq: NEEDED Status: Active Protocol: Document 04/15/20 16:19 HH (Rec: 04/15/20 16:50 HH [id number]) Physical Therapy Current Condition Current Condition Evaluation Date 04/15/20 Treatment Diagnosis Exploratory laparotomy, hiatal hernia repair with gastrostomy tube placemen Onset Date 04/14/20 Precautions Abdominal Surgery Precautions Log Roll,Lifting Restrictions, Gait Belt above Incisional Area Weight Bearing Status Weight Bearing Status Full Weight Bearing M3 PT-IP Subjective Start: 04/15/20 09:38 Freq: NEEDED Status: Active Protocol: Document 04/19/20 11:56 CLB (Rec: 04/19/20 14:16 CLB [id number]) Subjective Physical Therapy Visit Type Type Treatment Note Visit Start Time 11:56 Visit Stop Time 12:24 Total Visit Minutes 28 Notes Daughter Kika present. 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 M4 PT-IP Mobility and Gait Start: 04/15/20 09:38 Freq: NEEDED Status: Active Protocol: Document 04/19/20 11:56 CLB (Rec: 04/19/20 14:16 CLB [id number]) PT-Transfer Assessment Sit to and From Stand Sit to and from Stand Standby Assistance,Use of Upper Extremities Equipment Transfer Assistive Device Gait Belt,Front Wheeled Walker Orthotic/Prosthetic Devices or Brace: No Transfers Transfer Destination Chair Transfer Technique pt ambulated w/ FWW Transfer Ability Level of Assist Standby Assistance Comments Mobility Comments Pt in chair upon arrival, RN took BP, BP 176/81, SpO2 on RA 97%, HR 66. Pt ambulated ~ 300ft w/FWW/SBA to therapy stairs in [facility], pt climbed three steps with right ascending stair as pt is able to go through garage to enter home with 2 steps and right rail. Pt then ambulated back to room ~300ft. Pt returned to chair SBA. Pt left in chair with all needs within reach and daughter present. Gait Assessment Gait Gait Assistance Required: Standby Assistance,1 Person Assist Distance (Feet) 600 Able to Maintain Weight Bearing Status Yes During Gait Assistive Devices Assistive Device Gait Belt,Front Wheeled Walker Orthotic/Prosthetic Devices or Brace: No Gait Deviations General Gait Pattern Antalgic,Decreased Stride Length,Decreased Feet Clearance,Flexed Trunk Factors Limiting Gait Function Factors Limiting Gait Function Decreased Activity Tolerance, Decreased Sensation,Decreased Strength,Limited Range of Motion Comments Gait Comments Pt ambulated in soares ~600ft w/ FWW/SBA to therapy stairs in [facility], pt had steady gait with good walker management. Stair Climbing Assessment Evaluation Level of Assist On Stairs Standby Assistance Devices Stair Climbing Assistive Devices Right Railing Technique/Endurance Stair Climbing Direction Ascend and Descend Stair Climbing Technique Step to Step Number of Steps Climbed 3 Stair Climbing Set # Repetitions (reps) 1 Comments Stair Climbing Comments Pt SBA with right rail step to step. M5 PT-IP Objective Assessments Start: 04/15/20 09:38 Freq: NEEDED Status: Active Protocol: Document 04/15/20 16:19 HH (Rec: 04/15/20 16:50 HH [id number]) Orientation Orientation/Cognition Level of Alertness Confusional State Orientation Name,Age,Birthday,Month,Date, Year,Day of Week,Place, Situation Language Function Ability Hard of Hearing Safety Awareness Decreased Safety Awareness Memory Description Short Term Impaired Comments see mobility comments. Pt was somewhat confused Gross Range of Motion Upper Extremity ROM Impairments per OT ,pt's UE only able to reach approx 85 degrees flexion Strength Upper Extremity Strength Assessment Bilaterally Impaired Lower Extremity Strength Assessment Bilaterally Impaired Hip 3+/5 Knee 3+/5 Coordination Assessment Gross Coordination Gross Coordination WNL M6 PT-IP Treatment Start: 04/15/20 09:38 Freq: NEEDED Status: Active Protocol: Document 04/18/20 11:45 KS (Rec: 04/18/20 13:45 KS [id number]) Physical Therapy Treatment Exercises Exercises Ankle Pumps Education Education Provided Precautions,Weight Bearing Status,Safety M7 PT-IP Assessment and Plan Start: 04/15/20 09:38 Freq: NEEDED Status: Active Protocol: Document 04/19/20 11:56 CLB (Rec: 04/19/20 14:16 CLB [id number]) PT Summary Assessment and Plan Potential Rehabilitation Potential Good Status of Condition at Evaluation Stable Summary Impairments Pain,ROM,Strength,Balance,Bed Mobility,Transfers,Gait, Activity Tolerance Progress Towards Goals Progressing Toward Goals Assessment Summary Pt with increased activity tolerance able to ambulate ~ 600ft w/FWW/SBA, pt able to climb three steps with right rail SBA. Goals Bed Mobility Goal Standby Assistance Transfer Goal Standby Assistance,Front Wheeled Walker Gait Goal Standby Assistance,Front Wheel Walker Gait Distance 150 Other Goals 3 MARCI with no rails Days to Meet Goals 5 Frequency of Treatment Frequency Of Treatment Once a Day Treatment Plan Physical Therapy Treatment Plan Bed Mobility Training,Transfer Training,Gait Training, Therapeutic Exercise,Balance Retraining,Post Op Education, Discharge Planning,Hot or Cold Pack,Neuromuscular Re-ed Recommendations To Nursing Amount of Assist Needed 1 Person Assist Discharge Recommendations PT Discharge Recommendations Home with Assistance,Home with 24/7 Assist,Home Health Transportation Needs at Discharge Private Vehicle
--- NOTE | 2020-04-19 13:21 | CM.DPC ---
Addendum entered by Nikole Quiñones LPN 04/19/20 13:42: DC order is now in place. DC instructions is faxed now to [facility] and they are alerted to the d/c today by phone. Original Note: DCP: continued: Dr. Guerrero was here earlier today and deemed pt stable for d/c from medicine perspective. Pt and her daughter in law have been waiting for Dr. Franco in hopes of a d/c order. Pt has been up and mobilzing about the until with PT. Dr. Franco is here now and doing final exam of pt before the expected d/c to home order. [facility] is all set up. Will notify them of the d/c once official order is in place.
--- NOTE | 2020-04-19 13:39 | PM.DS.1 ---
History of Present Illness History of Present Illness Date Patient Seen: 04/19/20 Time Patient Seen: 13:40 Chief complaint: N/V and abd pain Narrative: Patient is a woman admitted with persistent nausea vomiting and severe pain with a CT scan showing a large diaphragmatic hernia and gastric volvulus within the chest. She was taken emergently to the operating room after resuscitation. Discharge Providers Provider Date of admission: 04/14/20 14:38 Discharge Date: 04/19/20 Primary care physician: Naheed Pinzon MD Consults: 04/14/20 15:05 Consult to Discharge Planning Routine Comment: Consult to Occupational Therapy Evaluate & Treat Comment: Physician Instructions: Evaluate and treat Consult to Physical Therapy Evaluate & Treat Comment: Physician Instructions: Evaluate and Treat 04/15/20 08:44 Consult to Dietitian, Adult Routine Comment: Reason For Exam: sp/ hiatal hernia repair for gastric volvulus 04/16/20 12:15 Consult to Home Health Routine Comment: Reason For Exam: Home Health nursing, P.T, O.T., bath aide. 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 Chronic hypertension Chronic reflux disease Chronic kyphosis Rapid rate acute onset atrial fibrillation requiring cardioversion and amiodarone drip to control her rate. Resolved at discharge. Hypokalemia acute resolved Acute anemia. Given the very small amount of blood loss intraoperatively, this probably represents perioperative fluid shifts. Exam Vital Signs (past 8 hours): - 04/19/20 08:05 04/19/20 12:00 Temperature 98 F 98.6 F Pulse Rate 59 L 63 Respiratory Rate 18 16 Blood Pressure 176/82 H 176/81 H Pulse Oximetry 96 96 Oxygen Delivery Method Room Air Oxygen Flow Rate 0 Narrative Exam Narrative: Patient is alert and pleasant. Her lungs are clear to auscultation with good effort. Abdomen is soft scaphoid. Bruising about the incision. No cellulitis. Jenn are intact. G-tube is intact. No cellulitis. Objective Labs Result Diagrams: 04/17/20 05:50 04/17/20 05:50 Discharge Assessment & Plan Assessment and Plan Assessment: Doing well. She is back to baseline as far as ambulating and activity is concern. She is having little pain and is using Tylenol for that. Plan of Treatment: Discharge to follow up in the office. She should resume her pre-admission medications. Discharge Plan Discharge Plan Patient Disposition: Home Discharge comment: Follow-up with in 2 weeks. Discharge orders & Medications Prescriptions: Continued polyethylene glycol 3350 [Miralax] 119 GM powder 17 gm PO QDAY PRN (Reason: Constipation) Qty: 0 RF: 0 fenofibrate micronized 67 mg capsule 67 mg PO QDAY Qty: 90 RF: 1 losartan [Cozaar] 50 mg tablet 25 mg PO DAILY Qty: 90 RF: 3 omeprazole 40 mg capsule,delayed release(DR/EC) 40 mg PO QDAY Qty: 90 RF: 1 multivitamin [Multiple Vitamins] tablet 1 tab PO DAILY Qty: 90 RF: 0 aspirin [Adult Low Dose Aspirin] 81 mg tablet,delayed release (DR/EC) 81 mg PO DAILY Qty: 90 RF: 0 loratadine-pseudoephedrine [Claritin-D 24 Hour] 10-240 mg tablet extended release 24 hr 1 tab PO DAILY Qty: 90 RF: 0 sodium chloride [[place] Nasal] 0.65 % aerosol,spray 1 spray NASAL ONCE Qty: 60 RF: 0 alprazolam [Xanax] 0.5 mg tablet 0.25 mg PO BID PRN (Reason: anxiety) RF: 0 furosemide 20 mg tablet 20 mg PO DAILY RF: 0 Disabled Parking Permit 1 ea TD QDAU RF: 0 Follow up/Referrals: Jose Eduardo Gilmore MD [Physician] - 1 Week (Please call our office on Monday and get an appointment to see Dr. Gilmore about a week from then. If you need to reach a doctor please call our office. If it is closed listen to the entire message and at the end you will be connected with the page power plant operators supervisor who will call the doctor on-call for our practice.) Naheed Pinzon MD [Primary Care Provider] - Discharge Health Status Multidrug resistant organism: No MDRO Diet/Activity/Treatments Diet: Diet as Tolerated Activity: Do not lift over 10 lb or strain for the next 6 weeks. You may walk. You do not have to keep a dressing on her wound. No pool or tub until Dr. Gilmore says it is okay. Skin/Wound/Dressing Care Dressing: You may remove the gauze to take a shower. It can be replaced if you so desire. It is not absolutely necessary. You do have a lot of bruising on your abdominal wall. That is not unusual. Visit Report/Discharge Packet Instructions: DI for Hernia Repair, DI for Atrial Fibrillation Visit Report Forms: Patient Portal/API, Stroke Signs & Symptoms Discharge Data Primary Care Provider: Naheed Pinzon
== END 2020-04-19 14:42 | disposition home health service (06) | DRG 328 ==
LOC: ED 11:46 → AC 14:39 → ICU 04-15 11:28 → AC 04-21 16:27
PROVIDERS: Surgery; Admitting Provider Surgery; Emergency Provider Emergency Medicine; PCP Family Medicine; Referring Provider Emergency Medicine; Visit Provider Surgery
PROC: 0BQT0ZZ Repair Diaphragm, Open Approach (ICD-10-PCS; CPT 49000; principal; 2020-04-14 15:15)
DX: K44.0 Diaphragmatic hernia with obstruction, without gangrene (principal); I95.9 Hypotension, unspecified; K31.89 Other diseases of stomach and duodenum; I48.91 Unspecified atrial fibrillation; E83.52 Hypercalcemia; I10 Essential (primary) hypertension; F41.9 Anxiety disorder, unspecified; K21.9 Gastro-esophageal reflux disease without esophagitis; M41.9 Scoliosis, unspecified; Z11.59 Encounter for screening for other viral diseases
CPT/HCPCS: 36415; 49000; 71045; 71275; 74174; 76705; 80048; 80053; 81003; 82550; 82553; 82962; 83690; 83735; 83880; 84100; 84484; 85025; 85379; 85610; 85730; 86850; 86900; 86901; 87635; 87797; 93005; 93306; 94762; 96361; 96374; 96375; 96376; 97116; 97162; 97165; 97530; 97535; 99222; 99232; 99284; 99291; C9113; J0282; J0330; J1100; J1170; J1650; J1885; J1940; J2405; J2543; J2704; J2765; J3010; J3480; Q9967

== ENCOUNTER → 2020-06-03 13:38 | Outpatient (CLI) | payer MEDICARE, BC, SELFPAY ==
[2020-04-29 12:01] VITALS: BMI 22.5
--- NOTE | 2020-07-03 15:53 | PM.CARDMON.1 ---
Leaf Sorter Report Referral & Results Date Patient Seen: 06/03/20 Requesting provider: Naheed Pinzon Indication: Atrial fibrillation Duration of monitoring (days): 13 Diary information: There were no patient diary entries or patient triggered events to review Data: Minimum heart rate identified was 47 beats per minute at 03:56 on 06/15/2020 Maximum sinus heart rate was 93 beats per minute at 16:15 on 06/13/2020 Maximum overall heart rate was 190 beats per minute at 13:11 on 06/04/2020 during an 11 beat run of nonsustained monomorphic ventricular tachycardia Less than 1% of identified beats or either ventricular supraventricular ectopic in origin. Therefore runs of nonsustained ventricular tachycardia the longest being the 11 beat run noted above. There were 39 runs of SVT/atrial tachycardia with the fastest being 5 beats at a rate of 139 beats per minute the longest lasting 10.4 seconds at a rate of 131 beats per minute No atrial fibrillation was identified Impression: 13 day injection specialist demonstrating rare but significant runs of nonsustained ventricular tachycardia Also more frequent runs of a supraventricular origin but overall relatively short Clinical correlation suggested.
== END ==
PROVIDERS: PCP Family Medicine; Referring Provider Family Medicine; Visit Provider Family Medicine
DX: I48.91 Unspecified atrial fibrillation (principal)
CPT/HCPCS: 0296T; 0298T

== ENCOUNTER → 2020-09-11 12:19 | Outpatient (CLI) | payer MEDICARE, BC, SELFPAY ==
[2020-04-29 12:01] VITALS: BMI 22.5
[2020-09-11 13:42] LABS: Alanine Aminotransferase 12 IU/L (<35); Albumin 4.4 g/dL (3.5-5.0); Albumin Globulin Ratio 1.4 (1.0-2.8); Alkaline Phosphatase 45 U/L (38-126); Aspartate Aminotransferase 31 IU/L (14-36); BUN Creatinine Ratio 39.3 (6-22); Bilirubin Total 0.3 mg/dL (0.2-1.3); Blood Urea Nitrogen 35 mg/dL (7-17); Calcium 10.3 mg/dL (8.4-10.2); Carbon Dioxide 33 mmol/L (22-32); Chloride 106 mmol/L (98-107); Cholesterol 152 mg/dL (140-199); Estimated Glomerular Filt Rate > 60.0 mL/min (>60); Globulin 3.2 g/dL (1.7-4.1); Glucose 94 mg/dL (80-110); HDL Cholesterol 49 mg/dL (40-60); HEMOLYSIS < 15 (0-50); LDL Cholesterol Calculated 85 mg/dL (<100); Magnesium 2.1 mg/dL (1.6-2.3); Potassium 4.3 mmol/L (3.4-5.1); Sodium 142 mmol/L (137-145); Total Protein 7.6 g/dL (6.3-8.2); Triglycerides 89 mg/dL (35-150)
== END ==
PROVIDERS: PCP Family Medicine; Referring Provider Internal Medicine Cardiovascular Disease; Visit Provider Internal Medicine Cardiovascular Disease
DX: I10 Essential (primary) hypertension (principal); I48.0 Paroxysmal atrial fibrillation
CPT/HCPCS: 36415; 80053; 80061; 82088; 83735; 84443

== ENCOUNTER → 2020-09-11 12:57 | Outpatient (CLI) | payer MEDICARE, BC, SELFPAY ==
[2020-04-29 12:01] VITALS: BMI 22.5
[2020-09-11] MEDS: COVID-19 VACC #1, MRNA(MOD) 100 MCG/0.5 ML VIAL IM (13:12)
== END ==
PROVIDERS: PCP Family Medicine; Visit Provider Internal Medicine
DX: Z23 Encounter for immunization (principal)
CPT/HCPCS: 0011A; 91301

== ENCOUNTER → 2020-09-21 09:49 | Outpatient (CLI) | payer MEDICARE, BC, SELFPAY ==
[2020-04-29 12:01] VITALS: BMI 22.5
[2020-09-21 11:14] LABS: COVID19 -Nasal RAPID Negative (Negative)
== END ==
PROVIDERS: PCP Family Medicine; Visit Provider Nurse Practitioner
DX: Z01.812 Encounter for preprocedural laboratory examination (principal); Z20.822 Contact with and (suspected) exposure to COVID-19
CPT/HCPCS: 87635; C9803

== ENCOUNTER → 2020-09-23 09:50 | Outpatient (CLI) | payer MEDICARE, BC, SELFPAY ==
[2020-04-29 12:01] VITALS: BMI 22.5
--- NOTE | 2020-09-23 15:09 | PM.TREADMILL ---
Cardiac Stress Test Report Referral & Results Date Patient Seen: 09/23/20 Time Patient Seen: 15:09 Requesting provider: Sarah Quintero Indication: paroxysmal atrial fibrillation Rest ECG: sinus rhythm Procedure Note: After Lexiscan injection had minimal dyspnea, no chest discomfort No significant ST changes after Lexiscan injection No ectopy Impression: Normal lexiscan stress test Please note: Actual ECG tracings can be found in the PACS system.
--- NOTE | 2020-09-23 18:57 | DI.NM.S_ITS ---
DATE OF SERVICE: PROCEDURE: Pharmacological perfusion study. DATE OF STUDY: 09/23/2020. INDICATIONS: Paroxysmal AFib and nonsustained ventricular tachycardia, hypertension. RADIOPHARMACEUTICAL: 24.9 millicurie of technetium-99m Myoview IV was injected at stress and 10.7 millicurie technetium-99m Myoview IV was injected at rest. CARDIAC STRESS: The patient underwent pharmacological perfusion study under the supervision of an attending staff. She received IV Lexiscan as per standard protocol. She remained hemodynamically stable. Baseline rhythm was sinus. During stress, no convincing ischemic changes seen. No significant arrhythmia seen. No chest discomfort. The patient has minimal dyspnea. RAW DATA: There appears to be adequate myocardial uptake. GATED STUDY: Resting LV ejection fraction 81 and stress LV ejection fraction 87 percent. Resting end-diastolic volume 74 mL. TID ratio 0.87, which is within normal limits. Lung/heart ratio 0.20 which is within normal limits. MYOCARDIAL PERFUSION SCAN: The stress supine and resting supine images were compared to each other. The patient does not have any prone images. Myocardial perfusion scan appears to be normal without any significant perfusion defect. CONCLUSION: I will call this study a normal myocardial perfusion study without any convincing ischemia or infarction pattern. The patient had a perfusion study in October 2016, at that time also no convincing ischemia or infarction. There was subtle distal posterior lateral wall defect. Overall this is a low- risk myocardial perfusion study. Delma Webb - MAGUI/mariela/missael doc#: [id number]/job#: [id number] dd: 09/23/2020 17:15:00 dt: 09/23/2020 18:52:00 DICTATING MD/COPIES TO: Sarah Quintero MD COPIES MNE: ZANA;
== END ==
PROVIDERS: PCP Family Medicine; Referring Provider Internal Medicine Cardiovascular Disease; Visit Provider Internal Medicine Cardiovascular Disease
DX: I48.0 Paroxysmal atrial fibrillation (principal); I47.2 Ventricular tachycardia
CPT/HCPCS: 78452; 93017; A9502; J2785

== ENCOUNTER → 2020-10-09 16:08 | Outpatient (CLI) | payer MEDICARE, BC, SELFPAY ==
[2020-04-29 12:01] VITALS: BMI 22.5
[2020-10-09] MEDS: COVID-19 VACC #2, MRNA(MOD) 100 MCG/0.5 ML VIAL IM (16:18)
== END ==
PROVIDERS: PCP Family Medicine; Visit Provider Internal Medicine
DX: Z23 Encounter for immunization (principal)
CPT/HCPCS: 0012A; 91301

== ENCOUNTER → 2020-11-06 13:31 | Outpatient (CLI) | payer MEDICARE, BC, SELFPAY ==
[2020-04-29 12:01] VITALS: BMI 22.5
--- NOTE | 2020-11-06 13:32 | DI.RAD.S_ITS ---
PROCEDURE: XR DEXA AXIAL SKELETON INDICATIONS: Age-related osteoporosis without current pathologi COMPARISON: [facility], CR, XR DEXA AXIAL SKELETON, 10/04/2019, 13:28. FINDINGS: This blank DEXA report has been sent in error by the PACS system. The correct and complete report will be forthcoming in 1-2 days. Thank you for your patience and understanding. Dictated by: Deborah Erickson MD, PhD on 11/06/2020 at 15:11 Approved by: Deborah Erickson MD, PhD on 11/06/2020 at 15:11
== END ==
PROVIDERS: PCP Family Medicine; Referring Provider Chiropractor; Visit Provider Chiropractor
DX: M81.0 Age-related osteoporosis without current pathological fracture (principal); Z78.0 Asymptomatic menopausal state; M45.9 Ankylosing spondylitis of unspecified sites in spine; Z86.39 Personal history of other endocrine, nutritional and metabolic disease
CPT/HCPCS: 77080

== ENCOUNTER → 2021-01-13 12:48 | Outpatient (CLI) | payer MEDICARE, BC, SELFPAY ==
[2020-04-29 12:01] VITALS: BMI 22.5
[2021-01-13 13:37] LABS: Appearance Urine UA CLOUDY; Bilirubin Urine UA NEGATIVE (NEGATIVE); Color Urine UA YELLOW; Glucose Urine UA NEGATIVE (Negative); Ketones Urine UA NEGATIVE (NEGATIVE); Leukocyte Esterase Urine UA 2+ (NEGATIVE); Nitrite Urine UA NEGATIVE (Negative); Occult Blood Urine UA 3+ (Negative); Protein Urine UA 2+ (Negative); Urobilinogen Urine UA 0.2 E.U./dL (0.2)
[2021-01-13 13:42] LABS: pH Urine UA 5.5 (4.5-8.0)
[2021-01-13 13:44] LABS: Bacteria Urine Many (>30); Culture Indicated Urine Specimen Cultured; RBC Urine >100/HPF (0-5/HPF); Squamous Epithelial Cell Urine 1-5 /HPF (0-5/HPF); WBC Urine >100/HPF (0-5/HPF)
== END ==
PROVIDERS: PCP Family Medicine; Referring Provider Family Medicine; Visit Provider Family Medicine
DX: M54.5 Low back pain (principal); R35.0 Frequency of micturition; R39.15 Urgency of urination; R41.0 Disorientation, unspecified; R68.83 Chills (without fever); N39.0 Urinary tract infection, site not specified
CPT/HCPCS: 81001; 87077; 87086; 87186

== ENCOUNTER → 2021-01-20 11:06 | Outpatient (CLI) | payer MEDICARE, BC, SELFPAY ==
[2020-04-29 12:01] VITALS: BMI 22.5
[2021-01-20 11:23] LABS: Bacteria Urine None Seen; RBC Urine None Seen (0-5/HPF); WBC Urine None Seen (0-5/HPF)
[2021-01-20 11:30] LABS: Appearance Urine UA CLEAR; Bilirubin Urine UA NEGATIVE (NEGATIVE); Color Urine UA YELLOW; Glucose Urine UA NEGATIVE (Negative); Ketones Urine UA NEGATIVE (NEGATIVE); Leukocyte Esterase Urine UA NEGATIVE (NEGATIVE); Nitrite Urine UA NEGATIVE (Negative); Occult Blood Urine UA TRACE-INTACT (Negative); Protein Urine UA NEGATIVE (Negative); Urobilinogen Urine UA 0.2 E.U./dL (0.2)
[2021-01-20 11:36] LABS: Culture Indicated Urine Cult Not Indicated; Urine Comments Microscopic Normal
== END ==
PROVIDERS: PCP Family Medicine; Referring Provider Family Medicine; Visit Provider Family Medicine
DX: R82.90 Unspecified abnormal findings in urine (principal); N39.0 Urinary tract infection, site not specified
CPT/HCPCS: 81001; 87086

== ENCOUNTER → 2021-02-23 15:26 | Outpatient (CLI) | payer MEDICARE, BC, SELFPAY ==
[2020-04-29 12:01] VITALS: BMI 22.5
--- NOTE | 2021-02-23 15:28 | DI.US.S_ITS ---
PROCEDURE: US PERIPH VENOUS LOW EXTREM RT INDICATIONS: RT LEG SWELLING TECHNIQUE: Real-time imaging, as well as color and pulse Doppler interrogation, were performed of the lower extremity deep veins from the inguinal ligament to the popliteal fossa. COMPARISON: None. FINDINGS: The common femoral, femoral and popliteal veins are normally compressible, and free of intraluminal thrombus. Color and pulse Doppler demonstrate normal phasic intraluminal flow. There is normal augmentation response to distal compression maneuver. IMPRESSION: No sonographic evidence of DVT. Dictated by: Gary Donaldson M.D. on 02/23/2021 at 16:09 Approved by: Gary Donaldson M.D. on 02/23/2021 at 16:10
== END ==
PROVIDERS: PCP Family Medicine; Referring Provider Family Medicine; Visit Provider Family Medicine
DX: M79.89 Other specified soft tissue disorders (principal)
CPT/HCPCS: 93971

== ENCOUNTER → 2021-09-13 14:24 | Outpatient (CLI) | payer MEDICARE, BC, SELFPAY ==
[2020-04-29 12:01] VITALS: BMI 22.5
[2021-09-13 15:32] LABS: Add Manual Diff / Slide Review NO; Basophils Absolute Auto 0 /uL (0-100); Basophils Percent Auto 0.7 % (0-2); Eosinophils Absolute Auto 200 /uL (0-450); Eosinophils Percent Auto 2.6 % (2-4); Hematocrit 34.9 % (36-46); Hemoglobin 11.4 g/dL (12.0-16.0); Lymphocytes Absolute Auto 1900 /uL (1100-4500); Mean Corpuscular HGB Conc 32.7 % (30-36); Mean Corpuscular Hemoglobin 28.1 PG (26-34); Mean Corpuscular Volume 85.9 fL (80-100); Monocytes Absolute Auto 600 /uL (0-900); Monocytes Percent Auto 8.5 % (3-14); Neutrophils Absolute Auto 4200 /uL (1500-7000); Neutrophils Percent Auto 61.2 % (50-75); Platelet Count 184 X10^3/uL (150-400); Red Blood Cell Count 4.07 X10^6/uL (4.0-5.2); Red Cell Distribution Width 14.8 % (11.6-14.8); White Blood Cell Count 6.9 X10^3/uL (4.5-11.0)
[2021-09-13 16:00] LABS: Alanine Aminotransferase 17 IU/L (<35); Albumin 4.6 g/dL (3.5-5.0); Albumin Globulin Ratio 1.4 (1.0-2.8); Alkaline Phosphatase 36 U/L (38-126); Aspartate Aminotransferase 41 IU/L (14-36); BUN Creatinine Ratio 25.2 (6-22); Bilirubin Total 0.5 mg/dL (0.2-1.3); Blood Urea Nitrogen 30 mg/dL (7-17); Calcium 10.6 mg/dL (8.4-10.2); Carbon Dioxide 32 mmol/L (22-32); Chloride 103 mmol/L (98-107); Estimated Glomerular Filt Rate 43.1 mL/min (>60); Globulin 3.2 g/dL (1.7-4.1); Glucose 89 mg/dL (80-110); HEMOLYSIS < 15 (0-50); Potassium 3.9 mmol/L (3.4-5.1); Sodium 140 mmol/L (137-145); Total Protein 7.8 g/dL (6.3-8.2)
[2021-09-13 16:04] LABS: Creatinine Urine Random 31.9 mg/dL
[2021-09-13 16:08] LABS: Microalbumi Creatinin Ratio Ur 131.6 ug/mg CR (<30); Microalbumin Urine Random 4.2 mg/dL (0-1.6)
== END ==
PROVIDERS: PCP Family Medicine; Referring Provider Family Medicine; Visit Provider Family Medicine
DX: I10 Essential (primary) hypertension (principal)
CPT/HCPCS: 36415; 80053; 82043; 82570; 85025

== ENCOUNTER → 2021-09-17 14:19 | Outpatient (CLI) | payer MEDICARE, BC, SELFPAY ==
[2020-04-29 12:01] VITALS: BMI 22.5
[2021-09-17 15:11] LABS: Alanine Aminotransferase 17 IU/L (<35); Albumin 4.5 g/dL (3.5-5.0); Albumin Globulin Ratio 1.5 (1.0-2.8); Alkaline Phosphatase 34 U/L (38-126); Aspartate Aminotransferase 36 IU/L (14-36); BUN Creatinine Ratio 34.4 (6-22); Bilirubin Total 0.4 mg/dL (0.2-1.3); Blood Urea Nitrogen 42 mg/dL (7-17); Calcium 10.7 mg/dL (8.4-10.2); Carbon Dioxide 33 mmol/L (22-32); Chloride 102 mmol/L (98-107); Estimated Glomerular Filt Rate 41.9 mL/min (>60); Glucose 91 mg/dL (80-110); HEMOLYSIS < 15 (0-50); Potassium 4.1 mmol/L (3.4-5.1); Sodium 140 mmol/L (137-145); Total Protein 7.5 g/dL (6.3-8.2)
== END ==
PROVIDERS: PCP Family Medicine; Referring Provider Family Medicine; Visit Provider Family Medicine
DX: Z87.448 Personal history of other diseases of urinary system (principal)
CPT/HCPCS: 36415; 80053

== ENCOUNTER → 2021-10-25 13:01 | Outpatient (CLI) | payer MEDICARE, BC, SELFPAY ==
[2020-04-29 12:01] VITALS: BMI 22.5
[2021-10-25 15:15] LABS: Blood Urea Nitrogen 36 mg/dL (7-17); Calcium 10.5 mg/dL (8.4-10.2); Carbon Dioxide 28 mmol/L (22-32); Chloride 104 mmol/L (98-107); Estimated Glomerular Filt Rate 41.1 mL/min (>60); Glucose 104 mg/dL (80-110); HEMOLYSIS < 15 (0-50); Potassium 4.3 mmol/L (3.4-5.1); Sodium 140 mmol/L (137-145)
== END ==
PROVIDERS: PCP Family Medicine; Referring Provider Family Medicine; Visit Provider Family Medicine
DX: N17.9 Acute kidney failure, unspecified (principal)
CPT/HCPCS: 36415; 80048

== ENCOUNTER → 2022-02-07 16:02 | Outpatient (CLI) | payer MEDICARE, BC, SELFPAY ==
[2020-04-29 12:01] VITALS: BMI 22.5
[2022-02-07 17:05] LABS: Alanine Aminotransferase 16 IU/L (<35); Albumin 4.4 g/dL (3.5-5.0); Albumin Globulin Ratio 1.4 (1.0-2.8); Alkaline Phosphatase 38 U/L (38-126); Aspartate Aminotransferase 37 IU/L (14-36); BUN Creatinine Ratio 32.3 (6-22); Bilirubin Total 0.4 mg/dL (0.2-1.3); Blood Urea Nitrogen 40 mg/dL (7-17); Calcium 10.5 mg/dL (8.4-10.2); Carbon Dioxide 31 mmol/L (22-32); Chloride 103 mmol/L (98-107); Estimated Glomerular Filt Rate 43 mL/min (>60); Globulin 3.2 g/dL (1.7-4.1); Glucose 101 mg/dL (80-110); HEMOLYSIS < 15 (0-50); Potassium 3.8 mmol/L (3.4-5.1); Sodium 142 mmol/L (137-145); Total Protein 7.6 g/dL (6.3-8.2)
[2022-02-07 20:22] LABS: Microalbumi Creatinin Ratio Ur 202.5 ug/mg CR (<30); Microalbumin Urine Random 7.9 mg/dL (0-1.6)
== END ==
PROVIDERS: PCP Family Medicine; Referring Provider Family Medicine; Visit Provider Family Medicine
DX: E83.52 Hypercalcemia (principal); I10 Essential (primary) hypertension; N28.9 Disorder of kidney and ureter, unspecified
CPT/HCPCS: 36415; 80053; 82043; 82570

== ENCOUNTER 2022-04-07 16:46 | Emergency (ER) | payer MEDICARE, BC, SELFPAY ==
[2020-04-29 12:01] VITALS: BMI 22.5
[2022-04-07 16:47] VITALS: BP 149/87; PULSE 68; RESP 18; TEMP 36.7; O2SAT 98; BMI 21.8
--- NOTE | 2022-04-07 17:10 | DI.RAD.S_ITS ---
PROCEDURE: XR RIBS RT MIN 3V W CXR 1V INDICATIONS: fall pain TECHNIQUE: Two views of the right ribs ribs were acquired, along with a single view chest. COMPARISON: None. FINDINGS: Surgical changes and devices: None. Bones and chest wall: No fractures or dislocations. No suspicious bony lesions. Overlying soft tissues appear unremarkable. Lungs and pleura: No pleural effusions or pneumothorax. Lungs appear clear. Mediastinum: Mediastinal contours appear normal. Heart size is normal. IMPRESSION: No rib fracture or other acute finding identified radiographically. Dictated by: Gary Donaldson M.D. on 04/07/2022 at 17:45 Approved by: Gary Donaldson M.D. on 04/07/2022 at 17:46
--- NOTE | 2022-04-07 17:40 | ED_ITS ---
HPI - Back Pain/Injury General Chief Complaint: Back Pain/Injury Stated Complaint: possible back fracture Time Seen by Provider: 04/07/22 17:10 Source: patient History of Present Illness HPI Narrative: Patient is a 87-year-old female who has significant kyphosis a. fib on eliquis presents today after fall in her kitchen 4 days ago. She states that she tripped over her foot was falling hit part of the kitchen counter and then twisted bounce back and hit the other counter. She actually did not fall and hit the ground. She is having right-sided rib pain with specific movements. She denies any pain with breathing or shortness of breath. She is able to sleep comfortably. However she has broken ribs in the past and is worried that she may have broken a rib. Related Data Home Medications Medication Instructions Recorded Confirmed polyethylene glycol 3350 17 17 gm PO QDAY PRN Constipation ##0 05/03/11 02/22/21 gram/dose oral powder (Miralax) Previous Rx's Medication Instructions Recorded aspirin 81 mg tablet,delayed 81 mg PO DAILY #90 tabs 02/23/18 release (Adult Low Dose Aspirin) loratadine-pseudoephedrine ER 10 1 tab PO DAILY #90 tabs 02/23/18 mg-240 mg tablet,extended [id number] (Claritin-D 24 Hour) multivitamin (Multiple Vitamins 1 tab PO DAILY #90 tabs 02/23/18 tablet) sodium chloride 0.65 % nasal spray 1 spray intranasal ONCE #60 mL 02/23/18 aerosol (Mineral Nasal) apixaban 2.5 mg tablet (Eliquis) 2.5 mg PO BID #60 tabs 02/22/21 omeprazole 40 mg capsule,delayed See Rx Instructions .Route 07/23/21 release .COMPLEX #90 caps fenofibrate micronized 67 mg See Rx Instructions .Route 12/09/21 capsule .COMPLEX #90 caps losartan 50 mg tablet See Rx Instructions .Route 01/06/22 .COMPLEX #90 tabs metoprolol succinate 25 mg See Rx Instructions .Route 01/14/22 tablet,extended release 24 hr .COMPLEX #30 tabs furosemide 20 mg tablet See Rx Instructions .Route 01/27/22 .COMPLEX #30 tabs Disabled Parking Permit #1 ea 03/07/22 alprazolam 0.5 mg tablet See Rx Instructions .Route 03/29/22 .COMPLEX #30 tabs lidocaine 5 % topical patch 1 patch topical DAILY PRN pain #30 04/07/22 ea Allergies Allergy/AdvReac Type Severity Reaction Status Date / Time codeine [CODEINE] Allergy Mild vomiting Verified 02/22/21 11:36 formaldehyde [FORMALDEHYDE] Allergy Mild puffy Verified 02/22/21 11:36 eyes, blurred vision latex [LATEX] Allergy Mild rash Verified 02/22/21 11:36 morphine [MORPHINE] Allergy Mild vomiting Verified 02/22/21 11:36 Review of Systems Review of Systems Narrative: GENERAL: Denies chills,fever HEENT: Denies throat pain RESPIRATORY: Denies dyspnea, cough, wheezing CARDIOVASCULAR: Denies chest pain, palpitations GASTROINTESTINAL: Denies nausea, vomiting MUSCULOSKELETAL: See HPI SKIN: No rash, no laceration, no pruritus NEUROLOGIC: Denies weakness, dizziness, headache, numbness 8 point review of systems is negative except for those stated above and HPI Patient History Medical History Anxiety (1997) Cervical spine disease Chronic back pain (2004) GERD (gastroesophageal reflux disease) (2007) Hayfever History of ectopic (1971) Kyphosis (2007) L1 vertebral fracture (1964) Lumbar spine pain (~1994) 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) Osteoarthritis (~1994) Osteopenia (~1994) Osteoporosis (2007) Parathyroid disease (2007) Recurrent sinusitis Scarlet fever Scoliosis Shoulder pain (2014) Tinnitus Vertigo Surgical History Anesthesia complication History of cataract removal with insertion of prosthetic lens (2011) History of cataract removal with insertion of prosthetic lens (2012) History of repair of hiatal hernia History of salpingectomy Status post breast reduction (1999) Status post bunionectomy (1992) Status post parathyroidectomy (2007) Status post parathyroidectomy (2009) Family History Brother Cancer Father No problems noted. Mother TB (tuberculosis) Social History household members: spouse Smoking Status: Never smoker second hand exposure: No alcohol intake: current substance use type: does not use Smoking Status: Never smoker alcohol intake frequency: 0-2 drinks per day Substance Use Type: does not use Exam Initial Vital Signs Initial Vital Signs: Vital Signs Temperature 98.1 F 04/07/22 16:47 Pulse Rate 68 04/07/22 16:47 Respiratory Rate 18 04/07/22 16:47 Blood Pressure 149/87 H 04/07/22 16:47 Pulse Oximetry 98 04/07/22 16:47 Oxygen Delivery Method 04/07/22 16:47 GENERAL: Alert pleasant 87-year-old female HEENT: Head atraumatic,EOMI, pupils reactive, face symmetric, moist mucous membranes CARDIOVASCULAR: Regular rate and rhythm without murmurs, rubs or gallops. RESPIRATORY: Breath sounds equal bilaterally, no wheezes rales or rhonchi. Pain right ribs no contusion, no paradoxical movement speaks in full sentences EXTREMITIES: Normal range of motion, no clubbing or edema. Neurovascularly intact NEUROLOGICAL: Alert and oriented x4. SKIN: Warm, dry, no laceration, no petechiae, no rashes or lesions. Course Orders Ordered: ED Orders 04/07/22 17:10 XR ribs RT min 3V w CXR1V Stat Vital Signs Vital signs: Vital Signs - 8 hr 04/07/22 16:47 Temperature 98.1 F Pulse Rate 68 Respiratory Rate 18 Blood Pressure 149/87 H Pulse Oximetry 98 Oxygen Delivery Method Room Air MDM - Back Pain/Injury Imaging Data Chest x-ray: Radiologist's Impression: XRay Report Signed Patient: Delma Webb MR#: [id number] : 1935 Acct:[id number] Age/Sex: 87 / F Date of Service: 04/07/22 Loc: ED Accession Number: [id number] ?? Procedure: XR ribs RT min 3V w CXR1V Ordering Provider: Josselin Felipe D.O. PROCEDURE:? XR RIBS RT MIN 3V W CXR 1V ? INDICATIONS:? fall pain ? TECHNIQUE:? Two views of the right ribs ribs were acquired, along with a single view chest.? ? COMPARISON:? None. ? FINDINGS:? ? Surgical changes and devices:? None.? ? Bones and chest wall:? No fractures or dislocations.? No suspicious bony lesions.? Overlying soft tissues appear unremarkable.? ? Lungs and pleura:? No pleural effusions or pneumothorax.? Lungs appear clear.? ? Mediastinum:? Mediastinal contours appear normal.? Heart size is normal.? ? IMPRESSION:? No rib fracture or other acute finding identified radiographically.? ? ? Dictated by: Gary Donaldson M.D. on 04/07/2022 at 17:45 ? ? MDM Narrative Medical decision making narrative: Patient overall appears well. She is very tender on her right ribs x-rays negative may be slight rib fracture. We discussed pain control will try lidocaine patches. She is on Eliquis so no ibuprofen. Discharge Plan Departure Patient Disposition: Home Clinical Impression: Contusion of rib on right side Instructions: DI for Rib Contusion Activity Restrictions/Additional Instructions: *You have been diagnosed with rib contusion *What to do: At this time her x-rays negative however with the amount of pain you're having I would not be surprised if you have a small fracture we are not seeing. *Continue to take medications as directed--> SENT TO [facility] Tylenol 650 mg every 4-6 hours if needed Lidocaine patch placed in area of pain for 12 hours remove you may place in a completely different area for the next 12, use as needed *Follow up with your primary care provider in 2-3 days or call [phone] *Return to ER if you should have increasing pain shortness of breath or any new, worsening or concerning symptoms Prescriptions: New lidocaine 5 % adhesive patch,medicated 1 patch topical DAILY PRN (Reason: pain) Qty: 30 0RF Rx Instructions: leave on most painful area for up to 12 hrs No Action Eliquis 2.5 mg tablet 2.5 mg PO BID Qty: 60 0RF polyethylene glycol 3350 [Miralax] 119 GM powder 17 gm PO QDAY PRN (Reason: Constipation) Qty: 0 omeprazole 40 mg capsule,delayed release(DR/EC) See Rx Instructions .ROUTE .COMPLEX Qty: 90 3RF Dose Instruction: TAKE 1 CAPSULE BY MOUTH EVERY DAY Rx Instructions: TAKE 1 CAPSULE BY MOUTH EVERY DAY fenofibrate micronized 67 mg capsule See Rx Instructions .ROUTE .COMPLEX Qty: 90 3RF Dose Instruction: TAKE 1 CAPSULE BY MOUTH EVERY DAY Rx Instructions: TAKE 1 CAPSULE BY MOUTH EVERY DAY losartan 50 mg tablet See Rx Instructions .ROUTE .COMPLEX Qty: 90 1RF Dose Instruction: TAKE 1/2 TABLET BY MOUTH DAILY Rx Instructions: TAKE 1/2 TABLET BY MOUTH DAILY metoprolol succinate 25 mg tablet extended release 24 hr See Rx Instructions .ROUTE .COMPLEX Qty: 30 5RF Dose Instruction: TAKE 1 TABLET(25 MG) BY MOUTH DAILY Rx Instructions: TAKE 1 TABLET(25 MG) BY MOUTH DAILY furosemide 20 mg tablet See Rx Instructions .ROUTE .COMPLEX Qty: 30 3RF Dose Instruction: TAKE 1 TABLET BY MOUTH DAILY Rx Instructions: TAKE 1 TABLET BY MOUTH DAILY (DME) Disabled Parking Permit See Rx Instructions .Route .MEDSUPPLY Qty: 1 0RF Rx Instructions: Pt would benefit from disabled parking due to medical conditions. Pt has Severe Kyphosis, is unable to stand upright. alprazolam 0.5 mg tablet See Rx Instructions .ROUTE .COMPLEX Qty: 30 0RF Dose Instruction: TAKE 1/2 TABLET(0.25 MG) BY MOUTH TWICE DAILY NEEDED FOR ANXIETY Rx Instructions: TAKE 1 TABLET BY MOUTH TWICE DAILY NEEDED FOR ANXIETY multivitamin [Multiple Vitamins] tablet 1 tab PO DAILY Qty: 90 0RF aspirin [Adult Low Dose Aspirin] 81 mg tablet,delayed release (DR/EC) 81 mg PO DAILY Qty: 90 0RF loratadine-pseudoephedrine [Claritin-D 24 Hour] 10-240 mg tablet extended release 24 hr 1 tab PO DAILY Qty: 90 0RF sodium chloride [Mineral Nasal] 0.65 % aerosol,spray 1 spray NASAL ONCE Qty: 60 0RF Referrals: Naheed Pinzon MD [Primary Care Provider] -
[2022-04-07 18:30] VITALS: BP 140/85; PULSE 66; RESP 18; O2SAT 98
== END 2022-04-07 18:32 | disposition home or self-care (01) ==
PROVIDERS: Emergency Provider Emergency Medicine; PCP Family Medicine; Referring Provider Family Medicine
DX: S20.211A Contusion of right front wall of thorax, initial encounter (principal); W19.XXXA Unspecified fall, initial encounter; Z79.01 Long term (current) use of anticoagulants
CPT/HCPCS: 71101; 99281; 99283

== ENCOUNTER → 2022-04-25 13:23 | Outpatient (CLI) | payer MEDICARE, BC, SELFPAY ==
[2020-04-29 12:01] VITALS: BMI 22.5
[2022-04-25 14:45] LABS: BUN Creatinine Ratio 29.5 (6-22); Blood Urea Nitrogen 36 mg/dL (7-17); Calcium 10.6 mg/dL (8.4-10.2); Carbon Dioxide 29 mmol/L (22-32); Chloride 102 mmol/L (98-107); Estimated Glomerular Filt Rate 43 mL/min (>60); Glucose 85 mg/dL (80-110); HEMOLYSIS < 15 (0-50); Potassium 3.6 mmol/L (3.4-5.1); Sodium 143 mmol/L (137-145)
== END ==
PROVIDERS: PCP Family Medicine; Referring Provider Internal Medicine Nephrology; Visit Provider Internal Medicine Nephrology
DX: N18.9 Chronic kidney disease, unspecified (principal)
CPT/HCPCS: 36415; 80048

== ENCOUNTER → 2022-08-29 15:45 | Outpatient (CLI) | payer MEDICARE, BC, SELFPAY ==
[2020-04-29 12:01] VITALS: BMI 22.5
[2022-08-29 18:21] LABS: BUN Creatinine Ratio 25.7 (6-22); Blood Urea Nitrogen 29 mg/dL (7-17); Calcium 10.1 mg/dL (8.4-10.2); Carbon Dioxide 31 mmol/L (22-32); Chloride 103 mmol/L (98-107); Estimated Glomerular Filt Rate 47 mL/min (>60); Glucose 88 mg/dL (80-110); HEMOLYSIS < 15 (0-50); Sodium 143 mmol/L (137-145)
== END ==
PROVIDERS: PCP Family Medicine; Referring Provider Internal Medicine Nephrology; Visit Provider Internal Medicine Nephrology
DX: N18.9 Chronic kidney disease, unspecified (principal)
CPT/HCPCS: 36415; 80048

== ENCOUNTER → 2022-09-12 14:37 | Outpatient (CLI) | payer MEDICARE, BC, SELFPAY ==
[2020-04-29 12:01] VITALS: BMI 22.5
--- NOTE | 2022-09-12 14:38 | DI.RAD.S_ITS ---
PROCEDURE: XR LUMBAR SPINE 2-3V INDICATIONS: Back pain TECHNIQUE: 3 views of the lumbar spine were acquired. COMPARISON: MR, L-SPINE WITHOUT CONTRAST, 03/12/2015, 12:53. [facility], CR, SPINE LUMB 2 OR 3VW, 03/30/2017, 15:31. FINDINGS: Bones: 5 [id number] vertebrae are present. There is severe scoliosis. There is retrolisthesis of L3 on L4. Compression fractures are present severe at T12, moderate at L2 and L3. There is osteopenia. No suspicious bony lesions. Moderate degenerative disc and facet disease in lumbar spine. Soft tissues: Overlying bowel gas pattern is normal. No suspicious soft tissue calcifications. IMPRESSION: 1. Multiple compression fractures. 2. Osteopenia. 3. Severe scoliosis. 4. Moderate degenerative disc and facet disease. Dictated by: Suzy Bonilla M.D. on 09/12/2022 at 18:55 Approved by: Suzy Bonilla M.D. on 09/12/2022 at 18:59
--- NOTE | 2022-09-12 14:38 | DI.RAD.S_ITS ---
PROCEDURE: XR THORACIC SPINE 3V INDICATIONS: Back pain TECHNIQUE: 3 views of the thoracic spine were acquired. COMPARISON: [facility], CR, XR LUMBAR SPINE 2-3V, 09/12/2022, 15:11. CT, CT ANGIO CHEST ABDOMEN PELVIS, 04/14/2020, 13:04. FINDINGS: Bones: Kyphosis in thoracic spine. Scoliosis in thoracolumbar spine. Severe osteopenia, which limits visualization of osseous structures. There are multiple compression fractures, severe at T4, T8 and T12, moderate to mild at multiple other levels. No suspicious bony lesions. 12 pairs of ribs are noted, and appear intact where visualized. Soft tissues: No paravertebral stripe thickening. Atherosclerotic calcifications of aorta. IMPRESSION: 1. Multiple compression fractures, severe at T4, T8 and T12. Because of severe osteopenia and scoliosis in thoracolumbar spine, numbering of vertebral bodies are difficult. Recommend CT or MRI for further evaluation if clinically indicated. Dictated by: Suzy Bonilla M.D. on 09/12/2022 at 18:36 Approved by: Suzy Bonilla M.D. on 09/12/2022 at 18:55
== END ==
PROVIDERS: PCP Family Medicine; Referring Provider Nurse Practitioner Family; Visit Provider Nurse Practitioner Family
DX: M48.54XA Collapsed vertebra, not elsewhere classified, thoracic region, initial encounter for fracture (principal); M48.56XA Collapsed vertebra, not elsewhere classified, lumbar region, initial encounter for fracture; M85.88 Other specified disorders of bone density and structure, other site; M41.9 Scoliosis, unspecified; M54.9 Dorsalgia, unspecified; M47.816 Spondylosis without myelopathy or radiculopathy, lumbar region; M51.26 Other intervertebral disc displacement, lumbar region
CPT/HCPCS: 72072; 72100

== ENCOUNTER → 2022-09-15 15:34 | Outpatient (CLI) | payer MEDICARE, BC, SELFPAY ==
[2020-04-29 12:01] VITALS: BMI 22.5
--- NOTE | 2022-09-15 15:37 | DI.MRI.S_ITS ---
PROCEDURE: MR LUMBAR SPINE WO CON INDICATIONS: scoliosis, multi compression fractures, retrolithesis L3-L4 TECHNIQUE: Noncontrast sagittal T1 spin echo and T2 fast echo, sagittal STIR, and T2 fast spin echo through the lumbar spine. In cases with scoliosis, additional coronal T2 fast spin echo may be performed. COMPARISON: [facility], CT, ABDOMEN/PELVIS WITH CONTRAST, 09/19/2016, 16:18. [facility], CR, XR LUMBAR SPINE 2-3V, 09/12/2022, 15:11. [facility], MR, L-SPINE WITHOUT CONTRAST, 03/12/2015, 12:53. [facility], MR, MR THORACIC SPINE WO CON, 09/15/2022, 16:10. FINDINGS: Image quality: Excellent. Alignment and Curvature: There is moderate dextroconvex lumbar scoliosis. Bone Marrow: The bone marrow is diffusely heterogeneous. Compression deformities can be seen at T11, T12, L2, and L4. At the T11 level, there is increased STIR signal seen. Spinal Cord: Conus medullaris terminates at the L1 level. Visualized cord demonstrates normal signal and size. Paraspinous Soft Tissues: No paravertebral masses. Bilateral renal cysts are seen, left larger than right. T12-L1: No significant abnormality is seen. L1-L2: At least moderate loss of disc height and disc signal can be seen. Reactive marrow endplate changes are seen which are hypointense on T1-weighted imaging and hyperintense on T2 weighted imaging, which is most consistent with edema (Modic type I changes). Moderate generalized disc bulge is seen. Mild facet joint hypertrophy is seen. There is at least moderate left-sided and mild right-sided neural foraminal narrowing. Mild central canal narrowing is seen. These imaging findings have progressed compared to the prior study. L2-L3: Moderate to severe loss of disc height and disc signal can be seen. Reactive marrow endplate changes are seen, which are hyperintense on T1-weighted and T2-weighted imaging and most consistent with fatty metaplasia (Modic type II changes). At least moderate disc bulge is seen, which is eccentric to the left. Moderate facet joint hypertrophy is seen. There is moderate left-sided and no significant right-sided neural foraminal narrowing. Mild central canal narrowing is seen. When comparison is made with the prior images, these findings are similar. L3-L4: The disc height is well-preserved. Loss of disc signal is seen at this level. Mild to moderate disc bulge is seen. Moderate facet joint hypertrophy is seen. There is moderate right-sided and moderate to severe left-sided neural foraminal narrowing. There is a degree of compression seen upon the exiting left L3 nerve root. Moderate central canal narrowing is seen. There is mild progression compared to 2015. L4-L5: The disc height is well-preserved. Loss of disc signal is seen at this level. Moderate disc bulge is seen. There is a mild central disc protrusion. At least moderate facet hypertrophy is seen. Associated hypertrophy of the ligamentum flavum can be seen. There is at least moderate right-sided neural foraminal narrowing, with a degree of compression upon the exiting right L4 nerve root. Moderate left-sided neural foraminal narrowing is seen. Mild central canal narrowing is seen. L5-S1: Moderate to severe loss of disc height is seen. Reactive marrow endplate changes are seen, which are hyperintense on T1-weighted and T2-weighted imaging and most consistent with fatty metaplasia (Modic type II changes). Mild to moderate disc bulge is seen. There is moderate right-sided and [id number] left-sided facet hypertrophy. There is moderate to severe bilateral neural foraminal narrowing seen, with an associated a degree of compression seen upon the exiting nerve roots. No significant central canal narrowing is seen. When comparison is made with the prior images, these findings are similar. IMPRESSION: Multiple levels of lumbar spine degenerative change are seen, which are progressed at several levels compared to 2015. Moderate dextroconvex lumbar scoliosis is seen, which is also progressed compared to 2015. Several levels of compression deformity are seen, which are also overall progressed compared to 2015. At the T11 level, there is increased STIR signal, which is suggestive an acute to subacute fracture. Additional findings: Bilateral renal cysts, left larger than right Dictated by: Sean See M.D. on 09/15/2022 at 16:34 Approved by: Sean See M.D. on 09/15/2022 at 16:42
--- NOTE | 2022-09-15 15:37 | DI.MRI.S_ITS ---
PROCEDURE: MR THORACIC SPINE WO CON INDICATIONS: scoliosis, multi compression fractures, retrolithesis L3-L4 TECHNIQUE: Noncontrast sagittal T1 spin echo and T2 fast spin echo, sagittal STIR through the thoracic and lumbar spines, with additional T2 fast spin echo images acquired through levels of compression fractures. COMPARISON: [facility], CT, CT ANGIO CHEST ABDOMEN PELVIS, 04/14/2020, 13:04. [facility], CR, XR LUMBAR SPINE 2-3V, 09/12/2022, 15:11. [facility], CR, THORACIC SPINE 2 VIEWS, 10/04/2016, 15:38. FINDINGS: Image quality: Excellent. Bones: Marked scoliotic curvature is present. Multilevel disc desiccation is present. There is old T8 as well as a T12 compression deformity. Compression deformity measuring approximately 60% is present at T11 with increased T2 signal. Scattered multilevel minimal to mild disc bulges are present. No gross spinal stenosis. Spinal cord: Visualized spinal cord is normal in size and signal. Conus medullaris is normal in location. Paraspinous soft tissues: No paravertebral masses. Multiple foci of increased T2 signal are present within the kidneys and liver suggestive of simple cysts. IMPRESSION: Compression deformity at T11. Old compression deformities at T8 and T12. Multilevel scattered disc bulges without gross spinal stenosis. Dictated by: Aruna Abarca M.D. on 09/15/2022 at 17:04 Approved by: Aruna Abarca M.D. on 09/15/2022 at 17:11
== END ==
PROVIDERS: PCP Family Medicine; Referring Provider Family Medicine; Visit Provider Family Medicine
DX: M48.56XA Collapsed vertebra, not elsewhere classified, lumbar region, initial encounter for fracture (principal); M48.54XA Collapsed vertebra, not elsewhere classified, thoracic region, initial encounter for fracture; M81.0 Age-related osteoporosis without current pathological fracture; M41.20 Other idiopathic scoliosis, site unspecified; M43.10 Spondylolisthesis, site unspecified; M47.816 Spondylosis without myelopathy or radiculopathy, lumbar region; M47.817 Spondylosis without myelopathy or radiculopathy, lumbosacral region; M51.34 Other intervertebral disc degeneration, thoracic region; N28.1 Cyst of kidney, acquired
CPT/HCPCS: 72146; 72148

== ENCOUNTER 2022-09-17 17:26 | Emergency (ER) | payer MEDICARE, BC, SELFPAY ==
[2020-04-29 12:01] VITALS: BMI 22.5
[2022-09-17 17:31] VITALS: BP 194/93; PULSE 82; RESP 17; TEMP 36.6; O2SAT 98; BMI 22.7
--- NOTE | 2022-09-17 18:12 | ED.BACK ---
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 over the last week. She is been seen at urgent care and was given Tylenol and 5 days of prednisone that did not help with her pain. Lidocaine patch has not been helpful. She saw her primary care physician who ordered MRI imaging studies and gave her 30 tablets of Vicodin. She has a follow-up appointment with orthopedic spine surgery this coming . At home she does have access to a [place] brace but finds that it is very uncomfortable and quite difficult to get on independently. She is not sure that it is helped when she does wear it with her pain control. She describes her baseline constipation but no fevers, cough, chills, urinary retention. She occasionally has episodes of muscle tremor in the lower extremities and has done this for a number of years today she had an episode lasting a number of minutes in both upper extremities that was severe enough that it caused her to drop a coffee cup. It has resolved and she is not had any recurrences over the course of today. She describes no specific neck pain or headaches Related Data Home Medications Medication Instructions Recorded Confirmed polyethylene glycol 3350 17 17 gm PO QDAY PRN Constipation ##0 05/03/11 07/26/22 gram/dose oral powder (Miralax) dapagliflozin 10 mg tablet 10 mg PO DAILY 04/27/22 07/26/22 (Farxiga) Previous Rx's Medication Instructions Recorded aspirin 81 mg tablet,delayed 81 mg PO DAILY #90 tabs 02/23/18 release (Adult Low Dose Aspirin) loratadine-pseudoephedrine ER 10 1 tab PO DAILY #90 tabs 02/23/18 mg-240 mg tablet,extended [id number] (Claritin-D 24 Hour) multivitamin (Multiple Vitamins 1 tab PO DAILY #90 tabs 02/23/18 tablet) sodium chloride 0.65 % nasal spray 1 spray intranasal ONCE #60 mL 02/23/18 aerosol (Lassen Nasal) apixaban 2.5 mg tablet (Eliquis) 2.5 mg PO BID #60 tabs 02/22/21 fenofibrate micronized 67 mg See Rx Instructions .Route 12/09/21 capsule .COMPLEX #90 caps Disabled Parking Permit #1 ea 03/07/22 lidocaine 5 % topical patch 1 patch topical DAILY PRN pain #30 04/07/22 ea metoprolol succinate 25 mg See Rx Instructions .Route 07/14/22 tablet,extended release 24 hr .COMPLEX #30 tabs omeprazole 40 mg capsule,delayed See Rx Instructions .Route 07/19/22 release .COMPLEX #90 caps olmesartan 20 mg tablet 20 mg PO DAILY #30 tabs 07/26/22 furosemide 20 mg tablet See Rx Instructions .Route 08/18/22 .COMPLEX #30 tabs alprazolam 0.5 mg tablet 0.5 mg PO BID PRN anxiety #30 tabs 09/08/22 cyclobenzaprine 5 mg tablet 5 mg PO BEDTIME #10 tabs 09/12/22 prednisone 10 mg tablet 10 mg PO DAILY #5 tabs 09/12/22 hydrocodone 5 mg-acetaminophen 325 1 tab PO Q6H PRN pain #30 tabs 09/15/22 mg tablet Allergies Allergy/AdvReac Type Severity Reaction Status Date / Time formaldehyde [FORMALDEHYDE] Allergy Mild puffy Verified 09/17/22 17:34 eyes, blurred vision latex [LATEX] Allergy Mild rash Verified 09/17/22 17:34 codeine [CODEINE] AdvReac Mild vomiting Verified 09/17/22 17:34 morphine [MORPHINE] AdvReac Mild vomiting Verified 09/17/22 17:34 Review of Systems Review of Systems Narrative: Remainder of complete review of systems is otherwise unremarkable except for that included in the HPI. Patient History Medical History Anxiety (1997) Cervical spine disease Chronic back pain (2004) GERD (gastroesophageal reflux disease) (2007) Hayfever History of ectopic (1971) Kyphosis (2007) L1 vertebral fracture (1964) Lumbar spine pain (~1994) 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) Osteoarthritis (~1994) Osteopenia (~1994) Osteoporosis (2007) Parathyroid disease (2007) Recurrent sinusitis Scarlet fever Scoliosis Shoulder pain (2014) Tinnitus Vertigo Surgical History Anesthesia complication History of cataract removal with insertion of prosthetic lens (2011) History of cataract removal with insertion of prosthetic lens (2012) History of repair of hiatal hernia History of salpingectomy Status post breast reduction (1999) Status post bunionectomy (1992) Status post parathyroidectomy (2007) Status post parathyroidectomy (2009) Family History Brother Cancer Father No problems noted. Mother TB (tuberculosis) Social History household members: spouse Smoking Status: Never smoker second hand exposure: No alcohol intake: current substance use type: does not use Smoking Status: Never smoker alcohol intake frequency: 0-2 drinks per day Substance Use Type: does not use Exam Initial Vital Signs Initial Vital Signs: Vital Signs Temperature 98 F 09/17/22 17:31 Pulse Rate 82 09/17/22 17:31 Respiratory Rate 17 09/17/22 17:31 Blood Pressure 194/93 H 09/17/22 17:31 Pulse Oximetry 98 09/17/22 17:31 Oxygen Delivery Method 09/17/22 17:31 General: Frail, in pain but able to cooperate with history and physical Respiratory: Able to speak in full sentences, no obvious respiratory distress Skin: No obvious rashes, warm and dry Neurologic: Grossly intact no obvious asymmetries or abnormalities. No tremor at baseline or with intention today Spine: Tenderness to palpation midline around T12 without skin changes Psych: appropriate insight and affect, cooperative Course Vital Signs Vital signs: Vital Signs - 8 hr 09/17/22 17:31 Temperature 98 F Pulse Rate 82 Respiratory Rate 17 Blood Pressure 194/93 H Pulse Oximetry 98 Oxygen Delivery Method Room Air MDM - Back Pain/Injury Imaging Data Thorasic and Lumbar MRI 09/15/02: Radiologist's Impression: FINDINGS:? Image quality:? Excellent.? ? Alignment and Curvature:? There is moderate dextroconvex lumbar scoliosis.? ? Bone Marrow:? The bone marrow is diffusely heterogeneous. ? Compression deformities can be seen at T11, T12, L2, and L4.? At the T11 level, there is increased STIR signal seen. ? Spinal Cord:? Conus medullaris terminates at the L1 level.? Visualized cord demonstrates normal signal and size.? ? Paraspinous Soft Tissues:? No paravertebral masses.? Bilateral renal cysts are seen, left larger than right. ? T12-L1:? No significant abnormality is seen. ? L1-L2:? At least moderate loss of disc height and disc signal can be seen. Reactive marrow endplate changes are seen which are hypointense on T1-weighted imaging and hyperintense on T2 weighted imaging, which is most consistent with edema (Modic type I changes).? Moderate generalized disc bulge is seen. Mild facet joint hypertrophy is seen. ?There is at least moderate left-sided and mild right-sided neural foraminal narrowing. Mild central canal narrowing is seen.? These imaging findings have progressed compared to the prior study.? ? L2-L3:? Moderate to severe loss of disc height and disc signal can be seen. Reactive marrow endplate changes are seen, which are hyperintense on T1-weighted and T2-weighted imaging and most consistent with fatty metaplasia (Modic type II changes).? At least moderate disc bulge is seen, which is eccentric to the left. Moderate facet joint hypertrophy is seen.? There is moderate left-sided and no significant right-sided neural foraminal narrowing. Mild central canal narrowing is seen.? When comparison is made with the prior images, these findings are similar.? ? L3-L4:? The disc height is well-preserved.? Loss of disc signal is seen at this level.? Mild to moderate disc bulge is seen. Moderate facet joint hypertrophy is seen.? There is moderate right-sided and moderate to severe left-sided neural foraminal narrowing.? There is a degree of compression seen upon the exiting left L3 nerve root. Moderate central canal narrowing is seen.? There is mild progression compared to 2015. ? L4-L5:? The disc height is well-preserved.? Loss of disc signal is seen at this level.? Moderate disc bulge is seen.? There is a mild central disc protrusion.? At least moderate facet hypertrophy is seen. Associated hypertrophy of the ligamentum flavum can be seen.? There is at least moderate right-sided neural foraminal narrowing, with a degree of compression upon the exiting right L4 nerve root.? Moderate left-sided neural foraminal narrowing is seen. Mild central canal narrowing is seen.? ? L5-S1:? Moderate to severe loss of disc height is seen. Reactive marrow endplate changes are seen, which are hyperintense on T1-weighted and T2-weighted imaging and most consistent with fatty metaplasia (Modic type II changes).? Mild to moderate disc bulge is seen.? There is moderate right-sided and [id number] left-sided facet hypertrophy. There is moderate to severe bilateral neural foraminal narrowing seen, with an associated a degree of compression seen upon the exiting nerve roots.? No significant central canal narrowing is seen. When comparison is made with the prior images, these findings are similar.? ? ? IMPRESSION:? Multiple levels of lumbar spine degenerative change are seen, which are progressed at several levels compared to 2015.? ? Moderate dextroconvex lumbar scoliosis is seen, which is also progressed compared to 2015. ? Several levels of compression deformity are seen, which are also overall progressed compared to 2015. At the T11 level, there is increased STIR signal, which is suggestive an acute to subacute fracture. ? ? ? Additional findings:? Bilateral renal cysts, left larger than right ? Dictated by: Sean See M.D. on 09/15/2022 at 16:34 ? FINDINGS:? Image quality:? Excellent.? ? Bones:? Marked scoliotic curvature is present.? Multilevel disc desiccation is present.? There is old T8 as well as a T12 compression deformity.? Compression deformity measuring approximately 60% is present at T11 with increased T2 signal. ? Scattered multilevel minimal to mild disc bulges are present.? No gross spinal stenosis. ? Spinal cord:? Visualized spinal cord is normal in size and signal.? Conus medullaris is normal in location.? ? Paraspinous soft tissues:? No paravertebral masses.? Multiple foci of increased T2 signal are present within the kidneys and liver suggestive of simple cysts. ? IMPRESSION:? ? Compression deformity at T11. ? Old compression deformities at T8 and T12. ? Multilevel scattered disc bulges without gross spinal stenosis. ? ? Dictated by: Aruna Abarca M.D. on 09/15/2022 at 17:04?? [facility] Narrative Medical decision making narrative: CC: Increased back pain. This is an acute exacerbation of a chronic problem uncertain prognosis with potential for systemic symptoms Complicating co-morbidities: Multiple compression fractures, osteoporosis, instability, pain Corroborating data: Data collected from: patient, son Social determinants of health that may influence the patients condition: Lives with her who has advanced Lewy body dementia Medical records reviewed: Primary care, urgent care, [facility] notes from Cardiology, endocrinology notes and nephrology notes for chronic kidney disease Differential considered: Spinal fracture, unstable by spinal fracture, cellulitis, diskitis, epidural abscess. Do not expect intra-abdominal source for her pain, do not suspect renal etiology either infectious or nephrolithiasis Exam documented above, pertinent findings include: Tenderness around T12. She is able to stand with gait instability and pain Imaging studies independently reviewed: X-rays and MRIs of lumbar and thoracic spine. Significant degenerative disease, disc degeneration, osteopenia, scoliosis with an acute T12 compression fraction Discussion: 87-year-old woman with new spontaneous T12 compression fracture as a cause of her acute exacerbation of her chronic and severe back pain. We talked about options for pain control, will try a TLSO brace to see if this is effective at all. Encouraged her to take this brace as well as her aspirin brace to her spine surgery consultation on September 22. Impressed upon her the importance of using her walker for stability and avoiding falls. Also encouraged her to make sure that she was getting up and moving. We discussed constipation and given that this is a chronic problem for her making sure she is adding additional MiraLax so the pain from the compression fracture as well as they additional narcotics does not cause worsening constipation issues. At this point I do not suspect any infectious etiology, unstable spine fracture, diskitis, epidural abscess. All of this is reviewed with patient and her son in detail and she is safe for discharge home BOA [place] brace is what we had available, was applied by nursing staff and adjusted as best her tiny torso and scoliosis would allow. Tolerated it well, will need to see if it helps with pain. Disposition: see below, along with detailed discharge instructions that have been reviewed with patient as well as indications for ED re-evaluation and additional outpatient follow up Discharge Plan Departure Patient Disposition: Home Clinical Impression: Abnormal MRI, thoracic spine Osteoporosis Qualifiers: Osteoporosis type: age-related Presence of current pathological fracture: with current pathological fracture Encounter type: initial encounter Qualified Code(s): M80.00XA - Age-related osteoporosis with current pathological fracture, unspecified site, initial encounter for fracture Closed wedge compression fracture of T12 vertebra Qualifiers: Encounter type: initial encounter Qualified Code(s): S22.080A - Wedge compression fracture of T11-T12 vertebra, initial encounter for closed fracture Degenerative joint disease (DJD) of lumbar spine Qualifiers: Spinal osteoarthritis complication: unspecified spinal osteoarthritis Qualified Code(s): M47.816 - Spondylosis without myelopathy or radiculopathy, lumbar region Instructions: DI for Vertebral Fracture, DI for Osteoporosis Activity Restrictions/Additional Instructions: Thank you for coming in this evening I am sorry that you are suffering with so much pain. In looking at your MRI it does appear that you have a new compression fracture at the T12 level. This is the acute pain that your having in your spine right behind her belly button. It is a fracture and the acute pain fractures can take up to 6 weeks to to significantly improve. I am going to have you try the TLSO brace from the emergency department and see if this helps with stabilization. This can be helpful in the short term to help with pain control but it is still important to make sure that you are moving and not using it long-term to prevent muscle atrophy around the spine. When you keep your appointment with Dr. Loo this , please take in your [place] brace as well so that he knows what options you have available to give you better advice It is vital that you use your walker to help with stability. At this point, another fall has very significant risk of eventually ending in your . For pain control: Do try both ice and heat to see if it makes a difference Use of the lidocaine patch did not provide much relief, you can try this again but if it isn't working, it isn't working. For medium pain I would recommend to Tylenol every 6 hours For moderate pain I would recommend 1 Tylenol and 1 Vicodin (this is the pain pill that your doctor gave you) every 6 hours For severe pain you can try 2 Vicodin every 6 hours Constipation getting to very severe constipation is common with compression fractures causing this much pain. Adding narcotics to that setting makes it worse. Please make sure you are using your MiraLax daily. If you do not have a bowel movement daily please add another scoop of MiraLax in the evening If you find that you are getting worse or develop any new symptoms, please feel free to return to the emergency department for further evaluation. Prescriptions: No Action Eliquis 2.5 mg tablet 2.5 mg PO BID Qty: 60 0RF Farxiga 10 mg tablet 10 mg PO DAILY olmesartan 20 mg tablet 20 mg PO DAILY Qty: 30 2RF prednisone 10 mg tablet 10 mg PO DAILY Qty: 5 0RF cyclobenzaprine 5 mg tablet 5 mg PO BEDTIME Qty: 10 0RF Rx Instructions: May take half a tab before bedtime polyethylene glycol 3350 [Miralax] 119 GM powder 17 gm PO QDAY PRN (Reason: Constipation) Qty: 0 fenofibrate micronized 67 mg capsule See Rx Instructions .ROUTE .COMPLEX Qty: 90 3RF Dose Instruction: TAKE 1 CAPSULE BY MOUTH EVERY DAY Rx Instructions: TAKE 1 CAPSULE BY MOUTH EVERY DAY (DME) Disabled Parking Permit See Rx Instructions .Route .MEDSUPPLY Qty: 1 0RF Rx Instructions: Pt would benefit from disabled parking due to medical conditions. Pt has Severe Kyphosis, is unable to stand upright. metoprolol succinate 25 mg tablet extended release 24 hr See Rx Instructions .ROUTE .COMPLEX Qty: 30 5RF Dose Instruction: TAKE 1 TABLET(25 MG) BY MOUTH DAILY Rx Instructions: TAKE 1 TABLET(25 MG) BY MOUTH DAILY omeprazole 40 mg capsule,delayed release(DR/EC) See Rx Instructions .ROUTE .COMPLEX Qty: 90 3RF Dose Instruction: TAKE 1 CAPSULE BY MOUTH EVERY DAY Rx Instructions: TAKE 1 CAPSULE BY MOUTH EVERY DAY furosemide 20 mg tablet See Rx Instructions .ROUTE .COMPLEX Qty: 30 0RF Dose Instruction: TAKE 1 TABLET BY MOUTH DAILY Rx Instructions: TAKE 1 TABLET BY MOUTH DAILY alprazolam 0.5 mg tablet 0.5 mg PO BID PRN (Reason: anxiety) Qty: 30 0RF hydrocodone-acetaminophen 5-325 mg tablet 1 tab PO Q6H PRN (Reason: pain) Qty: 30 0RF multivitamin [Multiple Vitamins] tablet 1 tab PO DAILY Qty: 90 0RF aspirin [Adult Low Dose Aspirin] 81 mg tablet,delayed release (DR/EC) 81 mg PO DAILY Qty: 90 0RF loratadine-pseudoephedrine [Claritin-D 24 Hour] 10-240 mg tablet extended release 24 hr 1 tab PO DAILY Qty: 90 0RF sodium chloride [Lassen Nasal] 0.65 % aerosol,spray 1 spray NASAL ONCE Qty: 60 0RF lidocaine 5 % adhesive patch,medicated 1 patch topical DAILY PRN (Reason: pain) Qty: 30 0RF Rx Instructions: leave on most painful area for up to 12 hrs Referrals: Naheed Pinzon MD [Primary Care Provider] - Stand Alone Forms: Patient Portal/API
== END 2022-09-17 19:51 | disposition home or self-care (01) ==
PROVIDERS: Emergency Provider Emergency Medicine; PCP Family Medicine
DX: M80.00XA Age-related osteoporosis with current pathological fracture, unspecified site, initial encounter for fracture (principal); S22.080A Wedge compression fracture of T11-T12 vertebra, initial encounter for closed fracture; M47.816 Spondylosis without myelopathy or radiculopathy, lumbar region; R93.7 Abnormal findings on diagnostic imaging of other parts of musculoskeletal system
CPT/HCPCS: 99281

== ENCOUNTER 2023-02-01 13:30 | Outpatient (RCR) | payer MEDICARE, BC, SELFPAY ==
[2020-04-29 12:01] VITALS: BMI 22.5
--- NOTE | 2023-01-30 16:31 | PT.OIE ---
Current Diagnoses Other chronic pain (01/30/23) Pain in unspecified shoulder (01/30/23) Low back pain, unspecified (01/30/23) Pain in thoracic spine (01/30/23) Other specified soft tissue disorders (01/30/23) Wedge compression fracture of unspecified thoracic vertebra, subsequent encounter for fracture with routine healing (01/30/23) Past Medical History (Last Updated 12/08/22 @ 06:27 by Gilmar Sanchez MD) Anxiety (1997) Cervical spine disease Chronic back pain (2004) GERD (gastroesophageal reflux disease) (2007) Hayfever History of ectopic (1971) Iliocostalis syndrome Intercostal neuralgia Kyphosis (2007) L1 vertebral fracture (1964) Lumbar back pain Lumbar spine pain (~1994) 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) Osteoarthritis (~1994) Osteopenia (~1994) Osteoporosis (2007) Parathyroid disease (2007) Recurrent sinusitis Scarlet fever Scoliosis Shoulder pain (2014) Thoracic back pain Tinnitus Vertebral compression fracture Vertigo Past Surgical History (Last Reviewed 12/07/22 @ 16:37 by Gilmar Sanchez MD) Anesthesia complication History of cataract removal with insertion of prosthetic lens (2011) History of cataract removal with insertion of prosthetic lens (2012) History of repair of hiatal hernia History of salpingectomy Status post breast reduction (1999) Status post bunionectomy (1992) Status post parathyroidectomy (2007) Status post parathyroidectomy (2009) Visit Care Team Role Provider Type Naheed Pinzon MD Family Provider Physician Primary Care Provider Specialty: Family Practice Address: [address] [place] [address], [address] Email: [email or web address] Gilmar Sanchez MD Attending Provider Physician Referring Provider Specialty: Anesthesiology Pain Management Address: [address] [place] [address], [address] Email: [email or web address] Physical Therapy Initial Evaluation PT-OP-A Visit Information Start: 01/29/23 21:50 Freq: Status: Active Protocol: Document 01/30/23 14:34 AMB (Rec: 01/30/23 15:41 AMB [id number]) Out-Patient Physical Therapy Visit Information Visit Information Visit Type Initial Evaluation Visit Start Time 14:30 Visit Stop Time 15:15 Total Visit Minutes 45 Visit Number 1 PT-OP-B Current Condition Start: 01/29/23 21:50 Freq: Status: Active Protocol: Document 01/30/23 14:34 AMB (Rec: 01/30/23 15:41 AMB [id number]) Current Condition History of Current Condition Onset Date August Current Complaints back pain History of Current Condition September of Lewy Body dementia, so now living alone. Has had many compression fractures. Has someone who helps with groceries and slides laundry rather than lifting. Does have visiting angels. Does have a rowing machine at home, had no pain with it but wondering if good idea. L arm can't really reach up any more. Does want to be able to do yardwork. No falls, but one near fall. Does have walker, cane and pole. 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 Personal Factors Other Personal Factors That May Effect Would like to ge able to do Therapy/Recovery her hair (L shoulder limits). Reduce pain of L hip and ribcage rubbing together. PT-OP-G Mobility & Gait Start: 01/29/23 21:50 Freq: Status: Active Protocol: Document 01/31/23 16:30 AMB (Rec: 01/31/23 16:31 AMB [id number]) OP Gait Assessment Comments Gait Comments Pt ambulates without AD. Pt tends to push with her hands on her thighs to prop herself up. High fall risk. Discussed with patient, she has a cane, trekking poles and a walker that she does not want to use. Did trial trekking poles which pt felt were challenging to use appropriately. PT-OP-J Posture/Palpation/Skin Start: 01/29/23 21:50 Freq: Status: Active Protocol: Document 01/30/23 14:30 AMB (Rec: 01/31/23 16:30 AMB [id number]) Posture Evaluation Comments Posture Comments Severe kyphosis and scoliosis. Rib and hip are palpably touching. Pt stands with hand against thigh because otherwise can't really achieve upright status. Palpation Assessment Location One Palpation Location thoracic lumbar Palpation Details tenderness at spinous processes, difficult to palpate QL due to bony prominences but pt is tender throughout. PT-OP-K Range of Motion Start: 01/29/23 21:50 Freq: Status: Active Protocol: Document 01/30/23 14:30 AMB (Rec: 01/31/23 16:30 AMB [id number]) Lumbar Spine Range of Motion Lumbar Spine Active Percentage Testing Position Sitting Comments pt with pain limited in all ranges, unable to move into neutral extension,pain with attempting sidebend. Shoulder Goniometric Range of Motion Shoulder ROM Limitations Comments Shoulders grossly limited to 90 degrees of abduction, pt can hold actively but reports fatigue and pain when holding her arms in that position for 2 minutes to blow dry her hair . PT-OP-M Strength Start: 01/29/23 21:50 Freq: Status: Active Protocol: Document 01/30/23 14:30 AMB (Rec: 01/31/23 16:30 AMB [id number]) Hip Strength Hip Manual Muscle Testing Right Flexion (L2) 4 Good Extension (S1) 4 Good Abduction 4 Good Left Flexion (L2) 4 Good Extension (S1) 4 Good Abduction 4 Good Comments tested in semi reclined positions with 3 pillows to prop head PT-OP-T Assessment and Plan Start: 01/29/23 21:50 Freq: Status: Active Protocol: Document 01/30/23 14:30 AMB (Rec: 01/30/23 19:04 AMB [id number]) Physical Therapy Assessment Rehab Potential Rehabilitation Potential Good Evaluation Complexity Number of Personal Factors/Comorbidities 1-2 Number of Body Systems Impaired 4 or More Clinical Presentation at Evaluation Evolving Impairments Impairments Activity Tolerance,Balance, Edema,Functional Activities, Functional Mobility,Gait,Pain, Posture,ROM,Strength Goals Two Impairment HEP Short Term Goal (STG) Delma will be independent and consistent with a HEP for balance and strengthening. STG Duration 4 weeks One Impairment Pain Short Term Goal (STG) Delma will reduce her pain so that she can raise her arm to do her hair for 2 minutes without shouler pain. STG Duration 4 weeks Cake Press Operator Goal (LTG) Delma will reduce her pain so that she can walk for 2 minutes without increasing back pain. LTG Duration 8 weeks Assessment Summary Assessment Delma attends physical therapy with multiple compression fractures and severe kyphosis and scoliosis resulting in a 7 height loss and pain, more severe on the left where her hip and rib cage come together. She has ADs at home but does not regularly use them. One recent near fall and concerned for overall balance. Pt needs to place left hand on left thigh to help prop up into slightly more extension. Has 4 back braces at home but doesn't really use any of them as it is difficult to put them on/take them off to use the bathroom as sh lives alone . Discussed exercise/ precautions with extensive osteoporosis/compression fracture history. Pt is not a surgical candidate so is looking for management of condition, pain relief and reducing risk of future compression fractures. Physical Therapy Plan Frequency and Duration Frequency of Treatment 2x/Week Duration of treatment (weeks) 10 Plan of Care Start Date 01/30/23 Plan of Care End Date 04/10/23 Therapeutic Interventions Therapeutic Interventions Balance Training,Gait Training ,Home Exercise Program,Manual Therapy,Neuromuscular Re- education,Self-Care/Home Management,Therapeutic Activities,Therapeutic Exercises Modalities Cold Pack/Ice Massage,Electric Stimulation,Hot Packs Next Visit Focus/Plan Next Note Type Treatment Note Next Visit Plan Establish HEP for balance and strength
--- NOTE | 2023-01-30 16:33 | PT.OPPOC ---
Physical, Occupational & Speech Therapy At [facility] Current Diagnoses Other chronic pain (01/30/23) Pain in unspecified shoulder (01/30/23) Low back pain, unspecified (01/30/23) Pain in thoracic spine (01/30/23) Other specified soft tissue disorders (01/30/23) Wedge compression fracture of unspecified thoracic vertebra, subsequent encounter for fracture with routine healing (01/30/23) Visit Care Team Role Provider Type Naheed Pinzon MD Family Provider Physician Primary Care Provider Specialty: Family Practice Address: [address] [place] [address], [address] Email: [email or web address] Gilmar Sanchez MD Attending Provider Physician Referring Provider Specialty: Anesthesiology Pain Management Address: [address] [place] [address], [address] Email: [email or web address] Plan Of Care PT-OP-T Assessment and Plan Start: 01/29/23 21:50 Freq: Status: Active Protocol: Document 01/30/23 14:30 AMB (Rec: 01/30/23 19:04 AMB [id number]) Physical Therapy Assessment Rehab Potential Rehabilitation Potential Good Evaluation Complexity Number of Personal Factors/Comorbidities 1-2 Number of Body Systems Impaired 4 or More Clinical Presentation at Evaluation Evolving Impairments Impairments Activity Tolerance,Balance, Edema,Functional Activities, Functional Mobility,Gait,Pain, Posture,ROM,Strength Goals Two Impairment HEP Short Term Goal (STG) Delma will be independent and consistent with a HEP for balance and strengthening. STG Duration 4 weeks One Impairment Pain Short Term Goal (STG) Delma will reduce her pain so that she can raise her arm to do her hair for 2 minutes without shouler pain. STG Duration 4 weeks Snf Goal (LTG) Delma will reduce her pain so that she can walk for 2 minutes without increasing back pain. LTG Duration 8 weeks Assessment Summary Assessment Delma attends physical therapy with multiple compression fractures and severe kyphosis and scoliosis resulting in a 7 height loss and pain, more severe on the left where her hip and rib cage come together. She has ADs at home but does not regularly use them. One recent near fall and concerned for overall balance. Pt needs to place left hand on left thigh to help prop up into slightly more extension. Has 4 back braces at home but doesn't really use any of them as it is difficult to put them on/take them off to use the bathroom as sh lives alone . Discussed exercise/ precuations with extensive osteoporosis/compression fracture history. Pt is not a surgical candidate so is looking for management of condition, pain relief and reducing risk of future compression fractures. Physical Therapy Plan Frequency and Duration Frequency of Treatment 2x/Week Duration of treatment (weeks) 10 Plan of Care Start Date 01/30/23 Plan of Care End Date 04/10/23 Therapeutic Interventions Therapeutic Interventions Balance Training,Gait Training ,Home Exercise Program,Manual Therapy,Neuromuscular Re- education,Self-Care/Home Management,Therapeutic Activities,Therapeutic Exercises Modalities Cold Pack/Ice Massage,Electric Stimulation,Hot Packs Next Visit Focus/Plan Next Note Type Treatment Note Next Visit Plan Establish HEP for balance and strength Plan of Care Dates Plan of Care Start Date 01/30/23 Plan of Care End Date 04/10/23 Electronically Signed by: Karyna Mondragon, PT 01/31/23 2819 If you are in agreement with this Plan of Care, please return a signed and dated copy. I have reviewed this Plan of Care and certify that the skilled therapy services above are required to meet the patient?s needs. Physician Signature Date Printed Name and Credentials Clinical Instructor Signature Printed Name and Credentials
--- NOTE | 2023-02-01 15:53 | PT.OTN ---
Current Diagnoses Other chronic pain (02/01/23) Pain in unspecified shoulder (02/01/23) Low back pain, unspecified (02/01/23) Pain in thoracic spine (02/01/23) Other specified soft tissue disorders (02/01/23) Wedge compression fracture of unspecified thoracic vertebra, subsequent encounter for fracture with routine healing (02/01/23) Physical Therapy Treatment Note PT-OP-A Visit Information Start: 01/29/23 21:50 Freq: Status: Active Protocol: Document 02/02/23 15:42 AMB (Rec: 02/02/23 15:53 AMB [id number]) Out-Patient Physical Therapy Visit Information Visit Information Visit Type Treatment Note Visit Start Time 13:30 Visit Stop Time 14:15 Total Visit Minutes 45 Visit Number 2 PT-OP-B Current Condition Start: 01/29/23 21:50 Freq: Status: Active Protocol: Document 01/30/23 14:34 AMB (Rec: 01/30/23 15:41 AMB [id number]) Current Condition History of Current Condition Onset Date August Current Complaints back pain History of Current Condition September of Lewy Body dementia, so now living alone. Has had many compression fractures. Has someone who helps with groceries and slides laundry rather than lifting. Does have visiting angels. Does have a rowing machine at home, had no pain with it but wondering if good idea. L arm can't really reach up any more. Does want to be able to do yardwork. No falls, but one near fall. Does have walker, cane and pole. 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 Personal Factors Other Personal Factors That May Effect Would like to ge able to do Therapy/Recovery her hair (L shoulder limits). Reduce pain of L hip and ribcage rubbing together. PT-OP-C Subjective Start: 01/29/23 21:50 Freq: Status: Active Protocol: Document 02/01/23 13:30 AMB (Rec: 02/03/23 15:33 AMB [id number]) OP-PT Subjective Patient Comments Patient Comments Pt reports no changes PT-OP-G Mobility & Gait Start: 01/29/23 21:50 Freq: Status: Active Protocol: Document 01/31/23 16:30 AMB (Rec: 01/31/23 16:31 AMB [id number]) OP Gait Assessment Comments Gait Comments Pt ambulates without AD. Pt tends to push with her hands on her thighs to prop herself up. High fall risk. Discussed with patient, she has a cane, trekking poles and a walker that she does not want to use. Did trial trekking poles which pt felt were challenging to use appropriately. PT-OP-J Posture/Palpation/Skin Start: 01/29/23 21:50 Freq: Status: Active Protocol: Document 01/30/23 14:30 AMB (Rec: 01/31/23 16:30 AMB [id number]) Posture Evaluation Comments Posture Comments Severe kyphosis and scoliosis. Rib and hip are palpably touching. Pt stands with hand against thigh because otherwise can't really achieve upright status. Palpation Assessment Location One Palpation Location thoracic lumbar Palpation Details tenderness at spinous processes, difficult to palpate QL due to bony prominences but pt is tender throughout. PT-OP-K Range of Motion Start: 01/29/23 21:50 Freq: Status: Active Protocol: Document 01/30/23 14:30 AMB (Rec: 01/31/23 16:30 AMB [id number]) Lumbar Spine Range of Motion Lumbar Spine Active Percentage Testing Position Sitting Comments pt with pain limited in all ranges, unable to move into neutral extension,pain with attempting sidebend. Shoulder Goniometric Range of Motion Shoulder ROM Limitations Comments Shoulders grossly limited to 90 degrees of abduction, pt can hold actively but reports fatigue and pain when holding her arms in that position for 2 minutes to blow dry her hair . PT-OP-M Strength Start: 01/29/23 21:50 Freq: Status: Active Protocol: Document 01/30/23 14:30 AMB (Rec: 01/31/23 16:30 AMB [id number]) Hip Strength Hip Manual Muscle Testing Right Flexion (L2) 4 Good Extension (S1) 4 Good Abduction 4 Good Left Flexion (L2) 4 Good Extension (S1) 4 Good Abduction 4 Good Comments tested in semi reclined positions with 3 pillows to prop head PT-OP-Q Treatments Start: 01/29/23 21:50 Freq: Status: Active Protocol: Document 02/03/23 13:30 AMB (Rec: 02/03/23 15:52 AMB [id number]) Gym Equipment Shuttle Recovery Bilateral Squats Resistance 37 Shuttle Recovery Platform Stable Reps/Time 5 min Therapeutic Exercises Standing Exercises t band rows Side bilateral Reps/Minutes 2x10 shoulder wall slide Reps/Minutes 2x10 wall posture Comments challenging PT-OP-T Assessment and Plan Start: 01/29/23 21:50 Freq: Status: Active Protocol: Document 02/01/23 13:30 AMB (Rec: 02/03/23 15:33 AMB [id number]) Physical Therapy Assessment Goals Two Impairment HEP Short Term Goal (STG) Delma will be independent and consistent with a HEP for balance and strengthening. STG Duration 4 weeks One Impairment Pain Short Term Goal (STG) Delma will reduce her pain so that she can raise her arm to do her hair for 2 minutes without shouler pain. STG Duration 4 weeks Emergency Communications Dispatcher Goal (LTG) Delma will reduce her pain so that she can walk for 2 minutes without increasing back pain. LTG Duration 8 weeks Assessment Summary Assessment Delma can only tolerate gentle stretching and strengthening. She already has 4 back braces that she doesn't used, but was given handouts on more thoracic bracing options for her kyphosis/scoliosis. Both are soft and would not really be enough to do much other than assist neuromuscularly. Pt encouraged in scapular strengthening, postural exercises. Physical Therapy Plan Next Visit Focus/Plan Next Note Type Treatment Note Next Visit Plan Has pt tried Spinomed brace? Posture/balance exercises.
--- NOTE | 2023-02-03 15:52 | PT.OTN ---
Current Diagnoses Other chronic pain (02/01/23) Pain in unspecified shoulder (02/01/23) Low back pain, unspecified (02/01/23) Pain in thoracic spine (02/01/23) Other specified soft tissue disorders (02/01/23) Wedge compression fracture of unspecified thoracic vertebra, subsequent encounter for fracture with routine healing (02/01/23) Physical Therapy Treatment Note PT-OP-A Visit Information Start: 01/29/23 21:50 Freq: Status: Active Protocol: Document 02/02/23 15:42 AMB (Rec: 02/02/23 15:53 AMB [id number]) Out-Patient Physical Therapy Visit Information Visit Information Visit Type Treatment Note Visit Start Time 13:30 Visit Stop Time 14:15 Total Visit Minutes 45 Visit Number 2 PT-OP-B Current Condition Start: 01/29/23 21:50 Freq: Status: Active Protocol: Document 01/30/23 14:34 AMB (Rec: 01/30/23 15:41 AMB [id number]) Current Condition History of Current Condition Onset Date August Current Complaints back pain History of Current Condition September of Lewy Body dementia, so now living alone. Has had many compression fractures. Has someone who helps with groceries and slides laundry rather than lifting. Does have visiting angels. Does have a rowing machine at home, had no pain with it but wondering if good idea. L arm can't really reach up any more. Does want to be able to do yardwork. No falls, but one near fall. Does have walker, cane and pole. 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 Personal Factors Other Personal Factors That May Effect Would like to ge able to do Therapy/Recovery her hair (L shoulder limits). Reduce pain of L hip and ribcage rubbing together. PT-OP-C Subjective Start: 01/29/23 21:50 Freq: Status: Active Protocol: Document 02/01/23 13:30 AMB (Rec: 02/03/23 15:33 AMB [id number]) OP-PT Subjective Patient Comments Patient Comments Pt reports no changes PT-OP-G Mobility & Gait Start: 01/29/23 21:50 Freq: Status: Active Protocol: Document 01/31/23 16:30 AMB (Rec: 01/31/23 16:31 AMB [id number]) OP Gait Assessment Comments Gait Comments Pt ambulates without AD. Pt tends to push with her hands on her thighs to prop herself up. High fall risk. Discussed with patient, she has a cane, trekking poles and a walker that she does not want to use. Did trial trekking poles which pt felt were challenging to use appropriately. PT-OP-J Posture/Palpation/Skin Start: 01/29/23 21:50 Freq: Status: Active Protocol: Document 01/30/23 14:30 AMB (Rec: 01/31/23 16:30 AMB [id number]) Posture Evaluation Comments Posture Comments Severe kyphosis and scoliosis. Rib and hip are palpably touching. Pt stands with hand against thigh because otherwise can't really achieve upright status. Palpation Assessment Location One Palpation Location thoracic lumbar Palpation Details tenderness at spinous processes, difficult to palpate QL due to bony prominences but pt is tender throughout. PT-OP-K Range of Motion Start: 01/29/23 21:50 Freq: Status: Active Protocol: Document 01/30/23 14:30 AMB (Rec: 01/31/23 16:30 AMB [id number]) Lumbar Spine Range of Motion Lumbar Spine Active Percentage Testing Position Sitting Comments pt with pain limited in all ranges, unable to move into neutral extension,pain with attempting sidebend. Shoulder Goniometric Range of Motion Shoulder ROM Limitations Comments Shoulders grossly limited to 90 degrees of abduction, pt can hold actively but reports fatigue and pain when holding her arms in that position for 2 minutes to blow dry her hair . PT-OP-M Strength Start: 01/29/23 21:50 Freq: Status: Active Protocol: Document 01/30/23 14:30 AMB (Rec: 01/31/23 16:30 AMB [id number]) Hip Strength Hip Manual Muscle Testing Right Flexion (L2) 4 Good Extension (S1) 4 Good Abduction 4 Good Left Flexion (L2) 4 Good Extension (S1) 4 Good Abduction 4 Good Comments tested in semi reclined positions with 3 pillows to prop head PT-OP-Q Treatments Start: 01/29/23 21:50 Freq: Status: Active Protocol: Document 02/03/23 13:30 AMB (Rec: 02/03/23 15:52 AMB [id number]) Gym Equipment Shuttle Recovery Bilateral Squats Resistance 37 Shuttle Recovery Platform Stable Reps/Time 5 min Therapeutic Exercises Standing Exercises t band rows Side bilateral Reps/Minutes 2x10 shoulder wall slide Reps/Minutes 2x10 wall posture Comments challenging PT-OP-T Assessment and Plan Start: 01/29/23 21:50 Freq: Status: Active Protocol: Document 02/01/23 13:30 AMB (Rec: 02/03/23 15:33 AMB [id number]) Physical Therapy Assessment Goals Two Impairment HEP Short Term Goal (STG) Delma will be independent and consistent with a HEP for balance and strengthening. STG Duration 4 weeks One Impairment Pain Short Term Goal (STG) Delma will reduce her pain so that she can raise her arm to do her hair for 2 minutes without shouler pain. STG Duration 4 weeks Coat Checker Goal (LTG) Delma will reduce her pain so that she can walk for 2 minutes without increasing back pain. LTG Duration 8 weeks Assessment Summary Assessment Delma can only tolerate gentle stretching and strengthening. She already has 4 back braces that she doesn't used, but was given handouts on more thoracic bracing options for her kyphosis/scoliosis. Both are soft and would not really be enough to do much other than assist neuromuscularly. Pt encouraged in scapular strengthening, postural exercises. Physical Therapy Plan Next Visit Focus/Plan Next Note Type Treatment Note Next Visit Plan Has pt tried Spinomed brace? Posture/balance exercises.
--- NOTE | 2023-03-15 13:39 | PT.OPDS ---
Current Diagnoses Other chronic pain (02/01/23) Pain in unspecified shoulder (02/01/23) Low back pain, unspecified (02/01/23) Pain in thoracic spine (02/01/23) Other specified soft tissue disorders (02/01/23) Wedge compression fracture of unspecified thoracic vertebra, subsequent encounter for fracture with routine healing (02/01/23) Visit Care Team Role Provider Type Naheed Pinzon MD Family Provider Physician Primary Care Provider Specialty: Family Practice Address: [address] [place] [address], [id number] Email: [email or web address] Gilmar Sanchez MD Attending Provider Physician Referring Provider Specialty: Anesthesiology Interventional Radiology Pain Management Address: [address] [place] [address], [id number] Email: [email or web address] Visit Number Visit Number 2 Discharge Summary PT-OP-B Current Condition Start: 01/29/23 21:50 Freq: Status: Active Protocol: Document 01/30/23 14:34 AMB (Rec: 01/30/23 15:41 AMB [id number]) Current Condition History of Current Condition Onset Date August Current Complaints back pain History of Current Condition September of Lewy Body dementia, so now living alone. Has had many compression fractures. Has someone who helps with groceries and slides laundry rather than lifting. Does have visiting angels. Does have a rowing machine at home, had no pain with it but wondering if good idea. L arm can't really reach up any more. Does want to be able to do yardwork. No falls, but one near fall. Does have walker, cane and pole. 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 Personal Factors Other Personal Factors That May Effect Would like to ge able to do Therapy/Recovery her hair (L shoulder limits). Reduce pain of L hip and ribcage rubbing together. PT-OP-C Subjective Start: 01/29/23 21:50 Freq: Status: Active Protocol: Document 02/01/23 13:30 AMB (Rec: 02/03/23 15:33 AMB [id number]) OP-PT Subjective Patient Comments Patient Comments Pt reports no changes PT-OP-G Mobility & Gait Start: 01/29/23 21:50 Freq: Status: Active Protocol: Document 01/31/23 16:30 AMB (Rec: 01/31/23 16:31 AMB [id number]) OP Gait Assessment Comments Gait Comments Pt ambulates without AD. Pt tends to push with her hands on her thighs to prop herself up. High fall risk. Discussed with patient, she has a cane, trekking poles and a walker that she does not want to use. Did trial trekking poles which pt felt were challenging to use appropriately. PT-OP-J Posture/Palpation/Skin Start: 01/29/23 21:50 Freq: Status: Active Protocol: Document 01/30/23 14:30 AMB (Rec: 01/31/23 16:30 AMB [id number]) Posture Evaluation Comments Posture Comments Severe kyphosis and scoliosis. Rib and hip are palpably touching. Pt stands with hand against thigh because otherwise can't really achieve upright status. Palpation Assessment Location One Palpation Location thoracic lumbar Palpation Details tenderness at spinous processes, difficult to palpate QL due to bony prominences but pt is tender throughout. PT-OP-K Range of Motion Start: 01/29/23 21:50 Freq: Status: Active Protocol: Document 01/30/23 14:30 AMB (Rec: 01/31/23 16:30 AMB [id number]) Lumbar Spine Range of Motion Lumbar Spine Active Percentage Testing Position Sitting Comments pt with pain limited in all ranges, unable to move into neutral extension,pain with attempting sidebend. Shoulder Goniometric Range of Motion Shoulder ROM Limitations Comments Shoulders grossly limited to 90 degrees of abduction, pt can hold actively but reports fatigue and pain when holding her arms in that position for 2 minutes to blow dry her hair . PT-OP-M Strength Start: 01/29/23 21:50 Freq: Status: Active Protocol: Document 01/30/23 14:30 AMB (Rec: 01/31/23 16:30 AMB [id number]) Hip Strength Hip Manual Muscle Testing Right Flexion (L2) 4 Good Extension (S1) 4 Good Abduction 4 Good Left Flexion (L2) 4 Good Extension (S1) 4 Good Abduction 4 Good Comments tested in semi reclined positions with 3 pillows to prop head PT-OP-T Assessment and Plan Start: 01/29/23 21:50 Freq: Status: Active Protocol: Document 03/15/23 13:31 AMB (Rec: 03/15/23 13:36 AMB [id number]) Physical Therapy Assessment Goals Two Impairment HEP Short Term Goal (STG) Delma will be independent and consistent with a HEP for balance and strengthening. STG Duration 4 weeks One Impairment Pain Short Term Goal (STG) Delma will reduce her pain so that she can raise her arm to do her hair for 2 minutes without shouler pain. STG Duration 4 weeks Barrel Charrer Helper Goal (LTG) Delma will reduce her pain so that she can walk for 2 minutes without increasing back pain. LTG Duration 8 weeks Assessment Summary Assessment Pt called to cancel her appointments and then did not follow up so she will be discharged. No significant change in function.
== END 2023-03-16 12:03 | disposition home or self-care (01) ==
LOC: PHYS 13:30
PROVIDERS: Family Provider Family Medicine; PCP Family Medicine; Referring Provider Anesthesiology; Visit Provider Anesthesiology
DX: S22.000D Wedge compression fracture of unspecified thoracic vertebra, subsequent encounter for fracture with routine healing (principal); M79.89 Other specified soft tissue disorders; M54.50 Low back pain, unspecified; M54.6 Pain in thoracic spine; G89.29 Other chronic pain; M25.519 Pain in unspecified shoulder
CPT/HCPCS: 97110; 97162

== ENCOUNTER 2023-02-06 15:33 | Emergency (ER) | payer MEDICARE, BC, SELFPAY ==
[2020-04-29 12:01] VITALS: BMI 22.5
[2023-02-06] VITALS (8 sets, daily range): BP systolic 122–237; BP diastolic 81–107; PULSE 59–77; RESP 18–42; TEMP 36.5; O2SAT 97–99
--- NOTE | 2023-02-06 15:53 | DI.RAD.S_ITS ---
PROCEDURE: XR CHEST 1V INDICATIONS: Shortness of breath TECHNIQUE: One view of the chest was acquired. COMPARISON: [facility], CR, XR CHEST 1V, 04/16/2020, 2:38. FINDINGS: Surgical changes and devices: None. Lungs and pleura: Platelike atelectasis in the right lung base. Pleural spaces clear Mediastinum: Significantly distended gas-filled esophagus noted. Heart size is enlarged. Atherosclerotic vascular calcification noted in the aortic arch. Bones and chest wall: Generalized decreased osseous mineralization noted. IMPRESSION: Significantly distended esophagus consider follow-up CT chest and abdomen to assess for distal esophageal lesion Approved by: Yomi Maddox M.D. on 02/06/2023 at 16:18
[2023-02-06 15:59] LABS: Add Manual Diff / Slide Review NO; Basophils Absolute Auto 0 /uL (0-100); Basophils Percent Auto 0.7 % (0-2); Eosinophils Absolute Auto 300 /uL (0-450); Eosinophils Percent Auto 3.7 % (2-4); Hematocrit 35.7 % (36-46); Hemoglobin 11.5 g/dL (12.0-16.0); Lymphocytes Absolute Auto 1900 /uL (1100-4500); Lymphocytes Percent Auto 27.1 % (25-40); Mean Corpuscular HGB Conc 32.2 % (30-36); Mean Corpuscular Hemoglobin 27.2 PG (26-34); Mean Corpuscular Volume 84.6 fL (80-100); Monocytes Absolute Auto 700 /uL (0-900); Monocytes Percent Auto 9.6 % (3-14); Neutrophils Absolute Auto 4100 /uL (1500-7000); Neutrophils Percent Auto 58.9 % (50-75); Platelet Count 168 X10^3/uL (150-400); Red Blood Cell Count 4.22 X10^6/uL (4.0-5.2); Red Cell Distribution Width 14.8 % (11.6-14.8); White Blood Cell Count 6.9 X10^3/uL (4.5-11.0)
[2023-02-06 16:02] LABS: INR 1.1 (0.9-1.3); Prothrombin Time 12.6 SECONDS (10.1-12.7)
[2023-02-06 16:06] LABS: Lactate (Lactic Acid) 1.1 mmol/L (0.7-2.1)
[2023-02-06 16:07] LABS: Alanine Aminotransferase 16 IU/L (<35); Albumin 4.6 g/dL (3.5-5.0); Albumin Globulin Ratio 1.4 (1.0-2.8); Alkaline Phosphatase 51 U/L (38-126); Aspartate Aminotransferase 33 IU/L (14-36); BUN Creatinine Ratio 35.1 (6-22); Bilirubin Total 0.4 mg/dL (0.2-1.3); Blood Urea Nitrogen 27 mg/dL (7-17); Calcium 10.7 mg/dL (8.4-10.2); Carbon Dioxide 26 mmol/L (22-32); Chloride 105 mmol/L (98-107); Estimated Glomerular Filt Rate > 60 mL/min (>60); Globulin 3.3 g/dL (1.7-4.1); Glucose 90 mg/dL (80-110); HEMOLYSIS < 15 (0-50); Potassium 3.9 mmol/L (3.4-5.1); Sodium 142 mmol/L (137-145); Total Protein 7.9 g/dL (6.3-8.2)
--- NOTE | 2023-02-06 16:14 | ED_ITS ---
HPI - General Adult General Chief complaint: Shortness of Breath/Dyspnea Stated complaint: SOB, near syncope Time Seen by Provider: 02/06/23 15:56 Source: patient, family and EMS Mode of arrival: EMS Limitations: no limitations History of Present Illness HPI narrative: Patient is an 87-year-old female. Does have a history of atrial fibrillation. Is anticoagulated for this. Also has a history of high blood pressure. Is brought in by EMS for evaluation of a episode that occurred just prior to arrival. Patient states she was at her normal state of health. She states she went to get ready for the day and getting dressed when she started to ?not feel right in the head? she could not get much more specific than this. She was able to go out to the living room were other family members were. She did sit down. She did not pass out but she states she felt like she could have passed out. Potentially was having some palpitations at the time but again could not specifically identify whether or not it was faster a slow heart rate. She thought that the symptoms lasted approximately 45 minutes and then resolved. At the time of my evaluation she reports that she was feeling okay. She does have chronic back discomfort. Related Data Home Medications Medication Instructions Recorded Confirmed polyethylene glycol 3350 17 17 gm PO QDAY PRN Constipation ##0 05/03/11 12/07/22 gram/dose oral powder (Miralax) Previous Rx's Medication Instructions Recorded multivitamin (Multiple Vitamins 1 tab PO DAILY #90 tabs 02/23/18 tablet) sodium chloride 0.65 % nasal spray 1 spray intranasal ONCE #60 mL 02/23/18 aerosol ([place] Nasal) apixaban 2.5 mg tablet (Eliquis) 2.5 mg PO BID #60 tabs 02/22/21 Disabled Parking Permit #1 ea 03/07/22 omeprazole 40 mg capsule,delayed See Rx Instructions .Route 07/19/22 release .COMPLEX #90 caps fenofibrate micronized 67 mg See Rx Instructions .Route 11/30/22 capsule .COMPLEX #90 caps calcitonin (salmon) 200 1 spray intranasal (ALT) DAILY 12/07/22 unit/actuation nasal spray vert fx 3 months #3.7 mL gabapentin 100 mg capsule 100 mg PO BEDTIME #30 caps 12/07/22 alprazolam 0.5 mg tablet 0.5 mg PO BID PRN anxiety #30 tabs 01/11/23 metoprolol succinate 25 mg See Rx Instructions .Route 01/12/23 tablet,extended release 24 hr .COMPLEX #30 tabs Allergies Allergy/AdvReac Type Severity Reaction Status Date / Time formaldehyde [FORMALDEHYDE] Allergy Mild puffy Verified 02/06/23 15:59 eyes, blurred vision latex [LATEX] Allergy Mild rash Verified 02/06/23 15:59 codeine [CODEINE] AdvReac Mild vomiting Verified 02/06/23 15:59 morphine [MORPHINE] AdvReac Mild vomiting Verified 02/06/23 15:59 Review of Systems Review of Systems ROS Unobtainable: All systems reviewed & are unremarkable except as noted in HPI and below Patient History Medical History Anxiety (1997) Cervical spine disease Chronic back pain (2004) GERD (gastroesophageal reflux disease) (2007) Hayfever History of ectopic (1971) Iliocostalis syndrome Intercostal neuralgia Kyphosis (2007) L1 vertebral fracture (1964) Lumbar back pain Lumbar spine pain (~1994) 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) Osteoarthritis (~1994) Osteopenia (~1994) Osteoporosis (2007) Parathyroid disease (2007) Recurrent sinusitis Scarlet fever Scoliosis Shoulder pain (2014) Thoracic back pain Tinnitus Vertebral compression fracture Vertigo Surgical History Anesthesia complication History of cataract removal with insertion of prosthetic lens (2011) History of cataract removal with insertion of prosthetic lens (2012) History of repair of hiatal hernia History of salpingectomy Status post breast reduction (1999) Status post bunionectomy (1992) Status post parathyroidectomy (2007) Status post parathyroidectomy (2009) Family History Brother Cancer Father No problems noted. Mother TB (tuberculosis) Social History household members: spouse Smoking Status: Never smoker second hand exposure: No alcohol intake: current substance use type: does not use Smoking Status: Never smoker alcohol intake frequency: 0-2 drinks per day Substance Use Type: does not use Exam Initial Vital Signs Initial Vital Signs: Vital Signs Temperature 97.7 F 02/06/23 15:49 Pulse Rate 77 06/26/23 15:49 Respiratory Rate 18 02/06/23 15:49 Blood Pressure 218/105 H 02/06/23 15:49 Pulse Oximetry 99 02/06/23 15:49 Oxygen Delivery Method Room Air 02/06/23 15:49 Const General: cooperative, comfortable and No ill appearing HENAK Head: normal to inspection and normocephalic Resp Effort & Inspection: normal respiratory effort Auscultation: clear to auscultation bilaterally Cardio Rate: regular rate Rhythm: regular rhythm GI Inspection: normal to inspection and non-distended Palpation: soft and No tender Skin General: no rashes or lesions noted Neuro General: patient alert, patient awake, patient oriented x3 and moves all extremities Extrem General: normal to inspection and No edema Course Orders Ordered: ED Orders 02/06/23 15:45 Complete Blood Count AUTO DIFF Stat Comprehensive Metabolic Panel Stat Lactate (Lactic Acid) Stat NT-proBNP (BNP-Adult 18+) Stat Prothrombin Time INR Stat Troponin I Stat 02/06/23 15:53 XR chest 1V Stat EKG-12 Lead Stat Measure peak expiratory flow ONCE RT Consult Eval and Treat NOW Vital Signs Vital signs: Vital Signs - 8 hr 02/06/23 15:49 02/06/23 15:53 02/06/23 15:53 Temperature 97.7 F Pulse Rate 77 76 Respiratory Rate 18 30 H Blood Pressure 218/105 H 122/87 Pulse Oximetry 99 Oxygen Delivery Method Room Air 02/06/23 16:00 02/06/23 16:01 02/06/23 16:01 Temperature Pulse Rate 70 72 Respiratory Rate 42 H 39 H Blood Pressure 237/107 H Pulse Oximetry Oxygen Delivery Method 02/06/23 16:10 02/06/23 16:10 02/06/23 16:30 Temperature Pulse Rate 70 Respiratory Rate 29 H Blood Pressure 214/99 H 220/96 H Pulse Oximetry 98 Oxygen Delivery Method 02/06/23 16:30 02/06/23 17:00 02/06/23 17:00 Temperature Pulse Rate 63 61 Respiratory Rate 20 31 H Blood Pressure 185/83 H Pulse Oximetry 98 98 Oxygen Delivery Method 02/06/23 17:30 02/06/23 17:30 Temperature Pulse Rate 59 L Respiratory Rate 26 H Blood Pressure 189/81 H Pulse Oximetry 97 Oxygen Delivery Method Room Air Medical Decision Making Lab Data Lab results reviewed: Yes I reviewed the patient's lab results. 02/06/23 15:45 02/06/23 15:45 Labs: Lab Results 02/06/23 02/06/23 02/06/23 Range/Units 15:45 15:45 15:45 WBC 6.9 (4.5-11.0) X10^3/uL RBC 4.22 (4.0-5.2) X10^6/uL Hgb 11.5 L (12.0-16.0) g/dL Hct 35.7 L (36-46) % MCV 84.6 (80-100) fL MCH 27.2 (26-34) PG MCHC 32.2 (30-36) % RDW 14.8 (11.6-14.8) % Plt Count 168 (150-400) X10^3/uL Neut % (Auto) 58.9 (50-75) % Lymph % (Auto) 27.1 (25-40) % [place] % (Auto) 9.6 (3-14) % Eos % (Auto) 3.7 (2-4) % Baso % (Auto) 0.7 (0-2) % Neut # (Auto) 4100 (0962-5975) /uL Lymph # (Auto) 1900 (1349-9739) /uL [place] # (Auto) 700 (0-900) /uL Eos # (Auto) 300 (0-450) /uL Baso # (Auto) 0 (0-100) /uL PT 12.6 (10.1-12.7) SECONDS INR 1.1 (0.9-1.3) Sodium 142 (137-145) mmol/L Potassium 3.9 (3.4-5.1) mmol/L Chloride 105 (98-107) mmol/L Carbon Dioxide 26 (22-32) mmol/L BUN 27 H (7-17) mg/dL Creatinine 0.77 (0.52-1.04) mg/dL Estimated GFR > 60 (>60) mL/min BUN/Creatinine Ratio 35.1 H (6-22) Glucose 90 (80-110) mg/dL Lactate (0.7-2.1) mmol/L Calcium 10.7 H (8.4-10.2) mg/dL Total Bilirubin 0.4 (0.2-1.3) mg/dL AST 33 (14-36) IU/L ALT 16 (<35) IU/L Alkaline Phosphatase 51 (38-126) U/L Troponin I < 0.012 (0.01-0.034) ng/mL NT-Pro-B Natriuret Pep 1200 H (<450) pg/mL Total Protein 7.9 (6.3-8.2) g/dL Albumin 4.6 (3.5-5.0) g/dL Globulin 3.3 (1.7-4.1) g/dL Albumin/Globulin Ratio 1.4 (1.0-2.8) / Range/Units 15:45 WBC (4.5-11.0) X10^3/uL RBC (4.0-5.2) X10^6/uL Hgb (12.0-16.0) g/dL Hct (36-46) % MCV (80-100) fL MCH (26-34) PG MCHC (30-36) % RDW (11.6-14.8) % Plt Count (150-400) X10^3/uL Neut % (Auto) (50-75) % Lymph % (Auto) (25-40) % [place] % (Auto) (3-14) % Eos % (Auto) (2-4) % Baso % (Auto) (0-2) % Neut # (Auto) (7196-2037) /uL Lymph # (Auto) (6657-4028) /uL [place] # (Auto) (0-900) /uL Eos # (Auto) (0-450) /uL Baso # (Auto) (0-100) /uL PT (10.1-12.7) SECONDS INR (0.9-1.3) Sodium (137-145) mmol/L Potassium (3.4-5.1) mmol/L Chloride (98-107) mmol/L Carbon Dioxide (22-32) mmol/L BUN (7-17) mg/dL Creatinine (0.52-1.04) mg/dL Estimated GFR (>60) mL/min BUN/Creatinine Ratio (6-22) Glucose (80-110) mg/dL Lactate 1.1 (0.7-2.1) mmol/L Calcium (8.4-10.2) mg/dL Total Bilirubin (0.2-1.3) mg/dL AST (14-36) IU/L ALT (<35) IU/L Alkaline Phosphatase (38-126) U/L Troponin I (0.01-0.034) ng/mL NT-Pro-B Natriuret Pep (<450) pg/mL Total Protein (6.3-8.2) g/dL Albumin (3.5-5.0) g/dL Globulin (1.7-4.1) g/dL Albumin/Globulin Ratio (1.0-2.8) Imaging Data Chest x-ray: Radiologist's Impression: PROCEDURE:? XR CHEST 1V ? INDICATIONS:? Shortness of breath ? TECHNIQUE:? One view of the chest was acquired.? ? COMPARISON:? [facility], CR, XR CHEST 1V, 04/16/2020, 2:38. ? FINDINGS:? ? Surgical changes and devices:? None.? ? Lungs and pleura:? Platelike atelectasis in the right lung base.? Pleural spaces clear ? Mediastinum:? Significantly distended gas-filled esophagus noted.? Heart size is enlarged. Atherosclerotic vascular calcification noted in the aortic arch. ? Bones and chest wall:? Generalized decreased osseous mineralization noted. ? IMPRESSION:? ? Significantly distended esophagus consider follow-up CT chest and abdomen to assess for distal esophageal lesion ECG Data Attestation: I personally reviewed and interpreted this ECG as follows: Interpretation: Sinus rhythm Ventricular rate is 70 Normal axis Normal QRS Normal QTC No ST T wave changes MDM Narrative Medical decision making narrative: Patient's workup here in the emergency department is unremarkable. Her blood pressure has improved. She is sinus rhythm on her EKG. Labs unremarkable. She states she is feeling much better. No fevers. I have low suspicion for CVA/TIA. She is not having chest pain. Low suspicion for seizure. Potentially had an episode of atrial fibrillation that self-resolved. Patient did not fall. No indication for further workup here in the ER. Will not change any medications for now. Will discharge patient home. She has a follow-up with her primary doctor already scheduled for next week. She was given return precautions. She expressed understanding and agreement. Discharge Plan Departure Patient Disposition: Home Clinical Impression: Pre-syncope Instructions: How to Prevent Falls Activity Restrictions/Additional Instructions: I do recommend that you continue to take all of your medications as directed. Keep all of your scheduled medical appointments. Return to the emergency department for new or worsening symptoms. Prescriptions: No Action Eliquis 2.5 mg tablet 2.5 mg PO BID Qty: 60 0RF polyethylene glycol 3350 [Miralax] 119 GM powder 17 gm PO QDAY PRN (Reason: Constipation) Qty: 0 (DME) Disabled Parking Permit See Rx Instructions .Route .MEDSUPPLY Qty: 1 0RF Rx Instructions: Pt would benefit from disabled parking due to medical conditions. Pt has Severe Kyphosis, is unable to stand upright. omeprazole 40 mg capsule,delayed release(DR/EC) See Rx Instructions .ROUTE .COMPLEX Qty: 90 3RF Dose Instruction: TAKE 1 CAPSULE BY MOUTH EVERY DAY Rx Instructions: TAKE 1 CAPSULE BY MOUTH EVERY DAY fenofibrate micronized 67 mg capsule See Rx Instructions .ROUTE .COMPLEX Qty: 90 0RF Dose Instruction: TAKE 1 CAPSULE BY MOUTH EVERY DAY Rx Instructions: TAKE 1 CAPSULE BY MOUTH EVERY DAY alprazolam 0.5 mg tablet 0.5 mg PO BID PRN (Reason: anxiety) Qty: 30 0RF metoprolol succinate 25 mg tablet extended release 24 hr See Rx Instructions .ROUTE .COMPLEX Qty: 30 0RF Dose Instruction: TAKE 1 TABLET(25 MG) BY MOUTH DAILY Rx Instructions: TAKE 1 TABLET(25 MG) BY MOUTH DAILY multivitamin [Multiple Vitamins] tablet 1 tab PO DAILY Qty: 90 0RF sodium chloride [[place] Nasal] 0.65 % aerosol,spray 1 spray NASAL ONCE Qty: 60 0RF gabapentin 100 mg capsule 100 mg PO BEDTIME Qty: 30 2RF calcitonin (salmon) 200 unit/actuation spray,non-aerosol 1 spray intranasal (ALT) DAILY 90 Days Qty: 3.7 2RF Rx Instructions: sacral fx Referrals: Naheed Pinzon MD [Primary Care Provider] - Stand Alone Forms: Patient Portal/API
[2023-02-06 16:19] LABS: NT-proBNP (BNP-Adult 18+) 1200 pg/mL (<450); Troponin I < 0.012 ng/mL (0.01-0.034)
== END 2023-02-06 18:02 | disposition home or self-care (01) ==
PROVIDERS: Emergency Provider Emergency Medicine; Family Provider Family Medicine; PCP Family Medicine
DX: R55 Syncope and collapse (principal); R00.2 Palpitations; R06.02 Shortness of breath
CPT/HCPCS: 36415; 71045; 80053; 83605; 83880; 84484; 85025; 85610; 93005; 93010; 99284

== ENCOUNTER 2023-02-27 13:13 | Emergency (ER) | payer MEDICARE, BC, SELFPAY ==
[2020-04-29 12:01] VITALS: BMI 22.5
[2023-02-27] VITALS (10 sets, daily range): BP systolic 189–235; BP diastolic 80–127; PULSE 53–72; RESP 11–25; TEMP 36.4; O2SAT 96–99; BMI 20.9
--- NOTE | 2023-02-27 13:22 | DI.RAD.S_ITS ---
PROCEDURE: XR CHEST 1V INDICATIONS: chest pain TECHNIQUE: One view of the chest was acquired. COMPARISON: [facility], CR, XR CHEST 1V, 02/06/2023, 15:50. [facility], CR, XR CHEST 1V, 04/16/2020, 2:38. FINDINGS: Surgical changes and devices: None. Lungs and pleura: Clear lungs. No pneumothorax or effusions. Mediastinum: Mediastinal contours appear normal. Heart size is normal. Patulous esophagus, distended by air. Bones and chest wall: No suspicious bony lesions. Overlying soft tissues appear unremarkable. IMPRESSION: No acute cardiopulmonary process. Unchanged gas-filled esophagus. Dictated by: Richy Jean Baptiste M.D. on 02/27/2023 at 14:35 Approved by: Richy Jean Baptiste M.D. on 02/27/2023 at 14:36
--- NOTE | 2023-02-27 13:41 | ED.GENADULT ---
HPI - General Adult General Chief complaint: Hypertension Stated complaint: blood pressure is high/irratic,lump l side neck Time Seen by Provider: 02/27/23 13:29 Source: patient Mode of arrival: Ambulatory History of Present Illness HPI narrative: Patient is a 88-year-old female history of paroxysmal atrial fibrillation on Eliquis, hypertension presenting today with elevated blood pressure. She reports that she monitor her blood pressure daily today she noted that she would 2 readings with a systolic greater than 190. She is not having any headache chest pain shortness of breath numbness tingling or weakness. She does report at least the last 1 week she has had difficulty swallowing both liquids and solids today she feels like there is lump anteriorly in her neck which is visible. She is no difficulty speaking or managing her own secretions. There is no pulsatile mass. Related Data Home Medications Medication Instructions Recorded Confirmed polyethylene glycol 3350 17 17 gm PO QDAY PRN Constipation ##0 05/03/11 02/13/23 gram/dose oral powder (Miralax) Previous Rx's Medication Instructions Recorded multivitamin (Multiple Vitamins 1 tab PO DAILY #90 tabs 02/23/18 tablet) sodium chloride 0.65 % nasal spray 1 spray intranasal ONCE #60 mL 02/23/18 aerosol ([place] Nasal) apixaban 2.5 mg tablet (Eliquis) 2.5 mg PO BID #60 tabs 02/22/21 Disabled Parking Permit #1 ea 03/07/22 omeprazole 40 mg capsule,delayed See Rx Instructions .Route 07/19/22 release .COMPLEX #90 caps calcitonin (salmon) 200 1 spray intranasal (ALT) DAILY 12/07/22 unit/actuation nasal spray vert fx 3 months #3.7 mL gabapentin 100 mg capsule 100 mg PO BEDTIME #30 caps 12/07/22 metoprolol succinate 25 mg See Rx Instructions .Route 02/08/23 tablet,extended release 24 hr .COMPLEX #30 tabs alprazolam 0.5 mg tablet 0.25 mg PO TID PRN anxiety #45 tabs 02/13/23 fenofibrate micronized 67 mg See Rx Instructions .Route 02/20/23 capsule .COMPLEX #90 caps Allergies Allergy/AdvReac Type Severity Reaction Status Date / Time formaldehyde [FORMALDEHYDE] Allergy Mild puffy Verified 02/13/23 14:19 eyes, blurred vision latex [LATEX] Allergy Mild rash Verified 02/13/23 14:19 codeine [CODEINE] AdvReac Mild vomiting Verified 02/13/23 14:19 morphine [MORPHINE] AdvReac Mild vomiting Verified 02/13/23 14:19 Review of Systems Review of Systems ROS Unobtainable: All systems reviewed & are unremarkable except as noted in HPI and below Patient History Medical History Anxiety (1997) Cervical spine disease Chronic back pain (2004) GERD (gastroesophageal reflux disease) (2007) Hayfever History of ectopic (1971) Iliocostalis syndrome Intercostal neuralgia Kyphosis (2007) L1 vertebral fracture (1964) Lumbar back pain Lumbar spine pain (~1994) 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) Osteoarthritis (~1994) Osteopenia (~1994) Osteoporosis (2007) Parathyroid disease (2007) Recurrent sinusitis Scarlet fever Scoliosis Shoulder pain (2014) Thoracic back pain Tinnitus Vertebral compression fracture Vertigo Surgical History Anesthesia complication History of cataract removal with insertion of prosthetic lens (2011) History of cataract removal with insertion of prosthetic lens (2012) History of repair of hiatal hernia History of salpingectomy Status post breast reduction (1999) Status post bunionectomy (1992) Status post parathyroidectomy (2007) Status post parathyroidectomy (2009) Family History Brother Cancer Father No problems noted. Mother TB (tuberculosis) Social History household members: spouse Smoking Status: Never smoker second hand exposure: No alcohol intake: current substance use type: does not use Smoking Status: Never smoker alcohol intake frequency: 0-2 drinks per day Substance Use Type: does not use Exam Initial Vital Signs Initial Vital Signs: Vital Signs Temperature 97.5 F L 02/27/23 13:16 Pulse Rate 72 02/27/23 13:16 Respiratory Rate 18 02/27/23 13:16 Blood Pressure 235/103 H 02/27/23 13:16 Pulse Oximetry 98 02/27/23 13:16 Oxygen Delivery Method Room Air 02/27/23 13:16 GENERAL: Alert pleasant 88-year-old female and in no acute distress. HEENT: Head atraumatic,EOMI, pupils reactive, face symmetric, moist mucous membranes NECK: No pulsatile, midline anterior leads have left mass, possible goiter CARDIOVASCULAR: Regular rate and rhythm without murmurs, rubs or gallops. RESPIRATORY: Breath sounds equal bilaterally, no wheezes rales or rhonchi. ABDOMEN: Soft, nontender. Normoactive bowel sounds all 4 quadrants. No guarding or rebound. EXTREMITIES: Normal range of motion, no clubbing or edema. Neurovascularly intact NEUROLOGICAL: Alert and oriented x4.Normal gait and speech. SKIN: Warm, dry, no laceration, no petechiae, no rashes or lesions. Course Orders Ordered: ED Orders 02/27/23 13:22 XR chest 1V Stat 02/27/23 13:30 EKG-12 Lead Stat 02/27/23 13:45 Complete Blood Count AUTO DIFF Stat Comprehensive Metabolic Panel Stat Lipase Stat Magnesium Stat PTT Partial Thromboplastin Minesh Stat Prothrombin Time INR Stat TSH [Thyroid Stimulating Hormone] Stat Troponin & CK Cardiac Panel Stat 02/27/23 13:47 CT soft tissue neck w con Stat Discontinued Medications Aspirin (Aspirin 81 Mg Chew Tab) 324 mg PO NOW ONE Stop: 02/27/23 13:23 Last Admin: 02/27/23 13:57 Dose: Not Given Documented By: LUIZ Vital Signs Vital signs: Vital Signs - 8 hr 02/27/23 13:16 02/27/23 14:11 02/27/23 14:27 Temperature 97.5 F L Pulse Rate 72 66 Respiratory Rate 18 19 Blood Pressure 235/103 H 199/89 H Pulse Oximetry 98 99 Oxygen Delivery Method Room Air Room Air 02/27/23 14:27 02/27/23 14:30 02/27/23 14:30 Temperature Pulse Rate 63 60 Respiratory Rate 11 L 14 Blood Pressure 197/80 H Pulse Oximetry 96 98 Oxygen Delivery Method 02/27/23 15:00 02/27/23 15:00 02/27/23 15:30 Temperature Pulse Rate 53 L Respiratory Rate 18 Blood Pressure 190/83 H 192/84 H Pulse Oximetry 97 Oxygen Delivery Method Room Air 02/27/23 15:30 02/27/23 15:48 02/27/23 15:48 Temperature Pulse Rate 55 L 60 Respiratory Rate 24 12 Blood Pressure 196/81 H Pulse Oximetry 96 98 Oxygen Delivery Method 02/27/23 16:00 02/27/23 16:00 02/27/23 16:28 Temperature Pulse Rate 54 L Respiratory Rate 22 Blood Pressure 195/83 H 189/127 H Pulse Oximetry 99 Oxygen Delivery Method 02/27/23 16:28 02/27/23 16:30 Temperature Pulse Rate 55 L 54 L Respiratory Rate 25 H 23 Blood Pressure Pulse Oximetry 99 99 Oxygen Delivery Method Medical Decision Making Lab Data 02/27/23 13:45 02/27/23 13:45 Labs: Lab Results 02/27/23 02/27/23 02/27/23 Range/Units 13:45 13:45 13:45 WBC 6.7 (4.5-11.0) X10^3/uL RBC 4.14 (4.0-5.2) X10^6/uL Hgb 11.2 L (12.0-16.0) g/dL Hct 34.1 L (36-46) % MCV 82.4 (80-100) fL MCH 27.0 (26-34) PG MCHC 32.8 (30-36) % RDW 15.5 H (11.6-14.8) % Plt Count 172 (150-400) X10^3/uL Neut % (Auto) 56.8 (50-75) % Lymph % (Auto) 28.5 (25-40) % [place] % (Auto) 10.4 (3-14) % Eos % (Auto) 3.3 (2-4) % Baso % (Auto) 1.0 (0-2) % Neut # (Auto) 3800 (7506-6795) /uL Lymph # (Auto) 1900 (1694-0471) /uL [place] # (Auto) 700 (0-900) /uL Eos # (Auto) 200 (0-450) /uL Baso # (Auto) 100 (0-100) /uL PT 14.6 H (10.1-12.7) SECONDS INR 1.3 (0.9-1.3) APTT 33 (26-36) SECONDS Sodium 140 (137-145) mmol/L Potassium 3.9 (3.4-5.1) mmol/L Chloride 106 (98-107) mmol/L Carbon Dioxide 26 (22-32) mmol/L BUN 29 H (7-17) mg/dL Creatinine 0.82 (0.52-1.04) mg/dL Estimated GFR > 60 (>60) mL/min BUN/Creatinine Ratio 35.4 H (6-22) Glucose 90 (80-110) mg/dL Calcium 10.4 H (8.4-10.2) mg/dL Magnesium 2.1 (1.6-2.3) mg/dL Total Bilirubin 0.4 (0.2-1.3) mg/dL AST 33 (14-36) IU/L ALT 16 (<35) IU/L Alkaline Phosphatase 48 (38-126) U/L Total Creatine Kinase 69 (30-135) U/L Troponin I < 0.012 (0.01-0.034) ng/mL Total Protein 7.5 (6.3-8.2) g/dL Albumin 4.4 (3.5-5.0) g/dL Globulin 3.1 (1.7-4.1) g/dL Albumin/Globulin Ratio 1.4 (1.0-2.8) Lipase 250 (23-300) U/L TSH (0.47-4.68) uIU/mL / Range/Units 13:45 WBC (4.5-11.0) X10^3/uL RBC (4.0-5.2) X10^6/uL Hgb (12.0-16.0) g/dL Hct (36-46) % MCV (80-100) fL MCH (26-34) PG MCHC (30-36) % RDW (11.6-14.8) % Plt Count (150-400) X10^3/uL Neut % (Auto) (50-75) % Lymph % (Auto) (25-40) % [place] % (Auto) (3-14) % Eos % (Auto) (2-4) % Baso % (Auto) (0-2) % Neut # (Auto) (9314-0039) /uL Lymph # (Auto) (3249-2699) /uL [place] # (Auto) (0-900) /uL Eos # (Auto) (0-450) /uL Baso # (Auto) (0-100) /uL PT (10.1-12.7) SECONDS INR (0.9-1.3) APTT (26-36) SECONDS Sodium (137-145) mmol/L Potassium (3.4-5.1) mmol/L Chloride (98-107) mmol/L Carbon Dioxide (22-32) mmol/L BUN (7-17) mg/dL Creatinine (0.52-1.04) mg/dL Estimated GFR (>60) mL/min BUN/Creatinine Ratio (6-22) Glucose (80-110) mg/dL Calcium (8.4-10.2) mg/dL Magnesium (1.6-2.3) mg/dL Total Bilirubin (0.2-1.3) mg/dL AST (14-36) IU/L ALT (<35) IU/L Alkaline Phosphatase (38-126) U/L Total Creatine Kinase (30-135) U/L Troponin I (0.01-0.034) ng/mL Total Protein (6.3-8.2) g/dL Albumin (3.5-5.0) g/dL Globulin (1.7-4.1) g/dL Albumin/Globulin Ratio (1.0-2.8) Lipase (23-300) U/L TSH 3.15 (0.47-4.68) uIU/mL Imaging Data Chest x-ray: Radiologist's Impression: PROCEDURE:? XR CHEST 1V ? INDICATIONS:? chest pain ? TECHNIQUE:? One view of the chest was acquired.? ? COMPARISON:? [facility], CR, XR CHEST 1V, 02/06/2023, 15:50.? [facility], CR, XR CHEST 1V, 04/16/2020, 2:38. ? FINDINGS:? ? Surgical changes and devices:? None.? ? Lungs and pleura:? Clear lungs.? No pneumothorax or effusions. ? Mediastinum:? Mediastinal contours appear normal.? Heart size is normal.? Patulous esophagus, distended by air.? ? Bones and chest wall:? No suspicious bony lesions.? Overlying soft tissues appear unremarkable.? ? IMPRESSION:? No acute cardiopulmonary process. Unchanged gas-filled esophagus. ? ? Dictated by: Richy Jean Baptiste M.D. on 02/27/2023 at 14:35 ? ? Approved by: Richy Jean Baptiste M.D. on 02/27/2023 at 14:36 ? CT soft tissue neck: Radiologist's Impression: PROCEDURE:? CT SOFT TISSUE NECK W CON ? INDICATIONS:? Left-sided mass possible goiter difficulty swallowing ? TECHNIQUE:? After the administration of intravenous contrast, 3.0 mm axial sections acquired from the sella to the aortic arch.? Additional oblique axial 3.0 mm sections acquired through the pharynx.? 3 mm thick coronal and sagittal reformats were generated.? For radiation dose reduction, the following was used:? automated exposure control.? ? COMPARISON:? None. ? FINDINGS:? Image quality:? Excellent.? ? Lymph nodes:? No enlarged lymph nodes seen throughout the neck.? ? Vessels:? Visualized vasculature appears patent.? ? Neck spaces:? The oropharynx, nasopharynx, and pharynx demonstrate no mucosal lesions.? The vocal cords, false vocal cords, pyriform sinuses, epiglottis, vallecula, and tongue base all appear normal.? Extramucosal spaces appear unremarkable.? The esophagus is patulous and distended with gas.? ? Glands:? The parotid and submandibular glands appear normal.? No thyroid nodules which require sonographic evaluation.? Normal size of thyroid. ? Miscellaneous:? Visualized brain and orbits appear normal.? Lung apices appear clear.? Superficial soft tissues appear normal. ? Bones:? No suspicious bony lesions.? Visualized sinuses and mastoids appear unremarkable. ? ? ? IMPRESSION:? Patulous esophagus containing gas.? Differential includes distal obstruction versus achalasia. ? Normal size of the thyroid. No thyroid nodules which require sonographic evaluation. ? Dictated by: Richy Jean Baptiste M.D. on 02/27/2023 at 15:29 ? ECG Data Interpretation: Sinus rhythm rate 69 WI interval 160 QRS [address] changes MDM Narrative Medical decision making narrative: Patient 88-year-old female presents today with elevated blood pressure. There is no evidence of end-organ damage blood pressure improved without any intervention. She likely does need some adjustment in her medication. She is having some difficulty swallowing CT soft tissue neck shows a patulous esophagus. Symptoms are not consistent with an aneurysm there is no pulsatile mass felt, unlikely aneurysm not in appropriate place. She will need further outpatient studies such as swelling evaluation possibly EGD but nonemergent at this time managing own secretions. She does have history of gastric will feel less than 2020 requiring emergent surgery. She is not having signs and symptoms of this today. Discharge Plan Departure Patient Disposition: Home Clinical Impression: Hypertension, Patulous lower esophageal sphincter Instructions: DI for High Blood Pressure Activity Restrictions/Additional Instructions: *You have been diagnosed with high blood pressure *What to do: You will need to follow-up with your primary care provider in regards to your blood pressure medication. You will likely need some adjustment but none needed emergently today. Also need swallowing evaluation. There is no mass your neck but you may also need an EGD. *Continue to take medications as directed *Follow up with your primary care provider in 2-3 days or call [phone] *Return to ER if you should have persistently elevated blood pressure greater than 200/100 or longer than 8 hours with symptoms or headache chest shortness of breath abdominal pain nausea vomiting any new, worsening or concerning symptoms Prescriptions: No Action Eliquis 2.5 mg tablet 2.5 mg PO BID Qty: 60 0RF alprazolam 0.5 mg tablet 0.25 mg PO TID PRN (Reason: anxiety) Qty: 45 0RF polyethylene glycol 3350 [Miralax] 119 GM powder 17 gm PO QDAY PRN (Reason: Constipation) Qty: 0 (DME) Disabled Parking Permit See Rx Instructions .Route .MEDSUPPLY Qty: 1 0RF Rx Instructions: Pt would benefit from disabled parking due to medical conditions. Pt has Severe Kyphosis, is unable to stand upright. omeprazole 40 mg capsule,delayed release(DR/EC) See Rx Instructions .ROUTE .COMPLEX Qty: 90 3RF Dose Instruction: TAKE 1 CAPSULE BY MOUTH EVERY DAY Rx Instructions: TAKE 1 CAPSULE BY MOUTH EVERY DAY metoprolol succinate 25 mg tablet extended release 24 hr See Rx Instructions .ROUTE .COMPLEX Qty: 30 0RF Dose Instruction: TAKE 1 TABLET(25 MG) BY MOUTH DAILY Rx Instructions: TAKE 1 TABLET(25 MG) BY MOUTH DAILY fenofibrate micronized 67 mg capsule See Rx Instructions .ROUTE .COMPLEX Qty: 90 3RF Dose Instruction: TAKE 1 CAPSULE BY MOUTH EVERY DAY Rx Instructions: TAKE 1 CAPSULE BY MOUTH EVERY DAY multivitamin [Multiple Vitamins] tablet 1 tab PO DAILY Qty: 90 0RF sodium chloride [[place] Nasal] 0.65 % aerosol,spray 1 spray NASAL ONCE Qty: 60 0RF gabapentin 100 mg capsule 100 mg PO BEDTIME Qty: 30 2RF calcitonin (salmon) 200 unit/actuation spray,non-aerosol 1 spray intranasal (ALT) DAILY 90 Days Qty: 3.7 2RF Rx Instructions: sacral fx Referrals: [facility] [Provider Group] Naheed Pinzon MD [Primary Care Provider] - Stand Alone Forms: Patient Portal/API
--- NOTE | 2023-02-27 13:47 | DI.CT.S_ITS ---
PROCEDURE: CT SOFT TISSUE NECK W CON INDICATIONS: Left-sided mass possible goiter difficulty swallowing TECHNIQUE: After the administration of intravenous contrast, 3.0 mm axial sections acquired from the sella to the aortic arch. Additional oblique axial 3.0 mm sections acquired through the pharynx. 3 mm thick coronal and sagittal reformats were generated. For radiation dose reduction, the following was used: automated exposure control. COMPARISON: None. FINDINGS: Image quality: Excellent. Lymph nodes: No enlarged lymph nodes seen throughout the neck. Vessels: Visualized vasculature appears patent. Neck spaces: The oropharynx, nasopharynx, and pharynx demonstrate no mucosal lesions. The vocal cords, false vocal cords, pyriform sinuses, epiglottis, vallecula, and tongue base all appear normal. Extramucosal spaces appear unremarkable. The esophagus is patulous and distended with gas. Glands: The parotid and submandibular glands appear normal. No thyroid nodules which require sonographic evaluation. Normal size of thyroid. Miscellaneous: Visualized brain and orbits appear normal. Lung apices appear clear. Superficial soft tissues appear normal. Bones: No suspicious bony lesions. Visualized sinuses and mastoids appear unremarkable. IMPRESSION: Patulous esophagus containing gas. Differential includes distal obstruction versus achalasia. Normal size of the thyroid. No thyroid nodules which require sonographic evaluation. Dictated by: Richy Jean Baptiste M.D. on 02/27/2023 at 15:29 Approved by: Richy Jean Baptiste M.D. on 02/27/2023 at 15:31
[2023-02-27 13:55] LABS: Add Manual Diff / Slide Review NO; Basophils Absolute Auto 100 /uL (0-100); Eosinophils Absolute Auto 200 /uL (0-450); Eosinophils Percent Auto 3.3 % (2-4); Hematocrit 34.1 % (36-46); Hemoglobin 11.2 g/dL (12.0-16.0); Lymphocytes Absolute Auto 1900 /uL (1100-4500); Lymphocytes Percent Auto 28.5 % (25-40); Mean Corpuscular HGB Conc 32.8 % (30-36); Mean Corpuscular Volume 82.4 fL (80-100); Monocytes Absolute Auto 700 /uL (0-900); Monocytes Percent Auto 10.4 % (3-14); Neutrophils Absolute Auto 3800 /uL (1500-7000); Neutrophils Percent Auto 56.8 % (50-75); Platelet Count 172 X10^3/uL (150-400); Red Blood Cell Count 4.14 X10^6/uL (4.0-5.2); Red Cell Distribution Width 15.5 % (11.6-14.8); White Blood Cell Count 6.7 X10^3/uL (4.5-11.0)
[2023-02-27 14:02] LABS: INR 1.3 (0.9-1.3); Prothrombin Time 14.6 SECONDS (10.1-12.7)
[2023-02-27 14:05] LABS: PTT Partial Thromboplastin Tim 33 SECONDS (26-36)
[2023-02-27 14:19] LABS: Alanine Aminotransferase 16 IU/L (<35); Albumin 4.4 g/dL (3.5-5.0); Albumin Globulin Ratio 1.4 (1.0-2.8); Alkaline Phosphatase 48 U/L (38-126); Aspartate Aminotransferase 33 IU/L (14-36); BUN Creatinine Ratio 35.4 (6-22); Bilirubin Total 0.4 mg/dL (0.2-1.3); Blood Urea Nitrogen 29 mg/dL (7-17); Calcium 10.4 mg/dL (8.4-10.2); Carbon Dioxide 26 mmol/L (22-32); Chloride 106 mmol/L (98-107); Creatine Kinase 69 U/L (30-135); Estimated Glomerular Filt Rate > 60 mL/min (>60); Globulin 3.1 g/dL (1.7-4.1); Glucose 90 mg/dL (80-110); HEMOLYSIS < 15 (0-50); Lipase 250 U/L (23-300); Magnesium 2.1 mg/dL (1.6-2.3); Potassium 3.9 mmol/L (3.4-5.1); Sodium 140 mmol/L (137-145); Total Protein 7.5 g/dL (6.3-8.2)
[2023-02-27 14:26] LABS: Troponin I < 0.012 ng/mL (0.01-0.034)
[2023-02-27 14:40] LABS: Thyroid Stimulating Hormone 3.15 uIU/mL (0.47-4.68)
== END 2023-02-27 16:39 | disposition home or self-care (01) ==
PROVIDERS: Emergency Provider Emergency Medicine; Family Provider Family Medicine; PCP Family Medicine
DX: I10 Essential (primary) hypertension (principal); K22.89 Other specified disease of esophagus; R07.9 Chest pain, unspecified
CPT/HCPCS: 36415; 70491; 71045; 80053; 82550; 83690; 83735; 84443; 84484; 85025; 85610; 85730; 93005; 99284; Q9967

== ENCOUNTER → 2023-03-09 14:29 | Outpatient (CLI) | payer MEDICARE, BC, SELFPAY ==
[2020-04-29 12:01] VITALS: BMI 22.5
[2023-03-09 16:45] LABS: Creatinine Urine Random 59.2 mg/dL
[2023-03-09 16:50] LABS: Microalbumi Creatinin Ratio Ur 40.5 ug/mg CR (<30); Microalbumin Urine Random 2.4 mg/dL (0-1.6)
== END ==
PROVIDERS: Family Provider Family Medicine; PCP Family Medicine; Referring Provider Internal Medicine Nephrology; Visit Provider Internal Medicine Nephrology
DX: N18.31 Chronic kidney disease, stage 3a (principal)
CPT/HCPCS: 82043; 82570

== ENCOUNTER → 2023-03-09 14:57 | Outpatient (CLI) | payer MEDICARE, BC, SELFPAY ==
[2020-04-29 12:01] VITALS: BMI 22.5
--- NOTE | 2023-03-09 14:58 | DI.ECHO.S_ITS ---
[facility]---------[facility] +---------+ : : [address] : : : : [id number] : : : : Phone: [phone]+ Echocardiogram Report + + :Name: ALBERT JAFFE V Study Date: 03/09/2023 Height: 55 in : :[facility] ReadingLocation: Weight: 90 lb : : Gender: Female BSA: 1.2 m2 : :: 1935 Age: 88 yrs BP: 177/83 mmHg: :Reason For Study: SHORTNESS OF BREATH : :Ordering Physician: LILLIAN, : :DAVID Performed By: Rosalba Trammell : :Referring: DAVID SNYDER : + + Interpretation Summary The ejection fraction is estimated to be 60-65%. Grade II diastolic dysfunction. The left atrium is mildly dilated. The right ventricle is normal in size and function. There is moderate mitral regurgitation. There is moderate aortic regurgitation. There is moderate tricuspid regurgitation. The right ventricular systolic pressure is estimated to be at least 34 mmHg based on an estimated right atrial pressure of 3 mm Hg. There is a trivial pericardial effusion noted. There is a large echolucent structure in the abdomen that does not demonstrate flow on Doppler imaging. Consider dedicated abdominal imaging. Compared to the prior study dated 04/16/2020 no significant change. Procedure: A two-dimensional transthoracic echocardiogram with color flow and Doppler was performed. The study quality was technically adequate. Comparison is made with the echocardiogram of 04/16/2020. The patient was in sinus rhythm with heart rates between 55-66 bpm during the exam. Left Ventricle: The left ventricle is normal in size. There is mild concentric left ventricular hypertrophy. The ejection fraction is estimated to be 60-65%. Diastolic parameters suggest a pseudonormalization pattern, consistent with probable elevated filling pressures. Right Ventricle: The right ventricle is normal in size and function. Atria: The left atrium is mildly dilated. Right atrial size is normal. There is no Doppler evidence for an interatrial shunt. Mitral Valve: The mitral valve leaflets are mildly calcified. The mitral valve leaflets appear moderately thickened, but open well. There is moderate mitral regurgitation. Aortic Valve: The aortic valve is trileaflet. There is no aortic valve stenosis. There is moderate aortic regurgitation. Tricuspid Valve: The tricuspid valve leaflets are thin and pliable. There is moderate tricuspid regurgitation. The right ventricular systolic pressure is estimated to be at least 34 mmHg based on an estimated right atrial pressure of 3 mm Hg. Pulmonic Valve: The pulmonic valve leaflets are thin and pliable; valve motion is normal. There is mild pulmonic regurgitation. Great Vessels: The aortic root is normal size. The dimensions of the ascending aorta are normal. The IVC is of normal diameter and collapses greater than 50% with a sniff. This suggests a low right atrial pressure of 3 mm Hg. There is a large echolucent structure in the abdomen that does not demonstrate flow on Doppler imaging. Consider dedicated abdominal imaging. Pericardium/ Pleura There is a trivial pericardial effusion noted. There is no pleural effusion. MMode/2D Measurements & Calculations LVIDd: 4.7 cm LVOT diam: 2.0 cm LVIDs: 2.8 cm Ao root diam: 3.0 cm FS: 40.8 % asc Aorta Diam: 3.3 cm EPSS: 1.1 cm IVSd: 1.00 cm LVPWd: 0.79 cm LV guzmán. diameter/BSA (cm/m^2): 3.8 LV sys. diameter/BSA (cm/m^2): 2.2 LA A2 area: 18.7 cm2 RA long axis: 4.8 cm LA A4 area: 15.3 cm2 RA area: 13.2 cm2 LA length (vol): 4.6 cm RA vol: 30.6 ml LA vol: 52.7 ml RA : 24.5 ml/m2 LA vol index: 42.2 ml/m2 IVC diam: 1.7 cm RVD1 (basal): 3.7 cm RVD2 (mid): 3.4 cm TAPSE: 2.0 cm Doppler Measurements & Calculations Ao V2 max: 144.1 cm/sec LVOT Max Joshua: 88.5 cm/sec Ao V2 mean: 86.1 cm/sec LV V1 max P.1 mmHg Ao max P.3 mmHg LV V1 VTI: 19.8 cm Ao mean P.6 mmHg GENOVEVA(I,D): 2.2 cm2 Ao V2 VTI: 29.2 cm GENOVEVA(V,D): 2.0 cm2 sev ratio: 0.68 GENOVEVA indexed to BSA (cm^2/m^2): 1.8 MV E max joshua: 55.9 cm/sec TR max joshua: 286.0 cm/sec MV A max joshua: 69.3 cm/sec TR max P.1 mmHg MV E/A: 0.81 PA V2 max: 66.9 cm/sec Med Peak E' Joshua: 3.6 cm/sec PA V2 mean: 46.5 cm/sec E/E' med: 15.4 PA mean P.94 mmHg Lat Peak E' Joshua: 6.7 cm/sec PA pr(Accel): 31.0 mmHg E/E' lat: 8.3 E/e' average: 11.8 MV dec time: 0.22 sec SV(LVOT): 64.5 ml AV P1/2t-pr_phl: 583.3 msec Reading Physician:05:16 PM
== END ==
PROVIDERS: Family Provider Family Medicine; PCP Family Medicine; Referring Provider Family Medicine; Visit Provider Family Medicine
DX: R06.02 Shortness of breath (principal); I08.3 Combined rheumatic disorders of mitral, aortic and tricuspid valves
CPT/HCPCS: 93306

== ENCOUNTER → 2023-03-14 09:16 | Outpatient (CLI) | payer MEDICARE, BC, SELFPAY ==
[2020-04-29 12:01] VITALS: BMI 22.5
--- NOTE | 2023-03-14 18:55 | DI.NM.S_ITS ---
DATE OF SERVICE: 03/14/2023 PROCEDURE: Pharmacological perfusion study. INDICATIONS: Shortness of breath with paroxysmal atrial fibrillation. RADIOPHARMACEUTICAL: 26.7 mCi technetium-99m Myoview IV was injected at stress and 12.2 mCi technetium-99m Myoview IV was injected at rest. CARDIAC STRESS: The patient underwent IV Lexiscan perfusion study under the supervision of an attending staff. During Lexiscan, patient dropped her blood pressure to 70/48 and felt lightheadedness and stomach discomfort. The patient was given aminophylline 50 mg intravenous and blood pressure returned back to baseline, which was 100/78 mmHg. Baseline rhythm was atrial fibrillation with frequent atypical left bundle branch block, aberrant conduction in succession as well, mimicking nonsustained ventricular tachycardia. However, it is pretty irregular, hence most likely aberrant conduction. No typical right bundle branch block morphology seen. After aminophylline, maximum heart rate about 142 beats per minute. No chest pain. RAW DATA: Breast shadows seen. Otherwise adequate myocardial perfusion. GATED STUDY: Stress LV ejection fraction 73 percent without any obvious wall motion abnormalities. Resting end-diastolic volume 28 mL. TID ratio 1.22. This is a pharmacological perfusion study. Lung/heart ratio 0.60, which is abnormal. MYOCARDIAL PERFUSION SCAN: Stress supine and resting supine images were seen. There were no prone images. Stress supine and resting supine images revealed normal myocardial perfusion. The patient had pharmacological perfusion study in September,. At that time also she had normal myocardial perfusion. However, at that time she was in sinus rhythm. Lung/heart ratio was normal 0.20 at that time. In this study, lung/heart ratio 0.60, suggestive of high filling LV pressure. Consider 2D echo to make sure there is no valvular pathology or diastolic dysfunction. Perfusion scan is normal. Left ventricular function is preserved. LV systolic function is preserved. No regional wall motion abnormalities. Baseline Afib mostly rate controlled with frequent wide QRS complexes, likely an aberrant conduction. As far as perfusion scan is concerned, this is a low-risk myocardial perfusion scan. Delma Webb - MAGUI/mariela/ doc#: [id number]/job#: [id number] dd: 03/14/2023 17:18:00 dt: 03/14/2023 18:25:00 DICTATING MD/COPIES TO: Sarah Quintero MD COPIES MNE: ZANA;
== END ==
PROVIDERS: Family Provider Family Medicine; PCP Family Medicine; Referring Provider Family Medicine; Visit Provider Family Medicine
DX: R06.02 Shortness of breath (principal); Z86.79 Personal history of other diseases of the circulatory system
CPT/HCPCS: 78452; 93017; A9502; J2785

== ENCOUNTER → 2023-03-15 13:40 | Outpatient (CLI) | payer MEDICARE, BC, SELFPAY ==
[2020-04-29 12:01] VITALS: BMI 22.5
== END ==
PROVIDERS: Family Provider Family Medicine; PCP Family Medicine; Referring Provider Family Medicine; Visit Provider Family Medicine
DX: R06.02 Shortness of breath (principal)
CPT/HCPCS: 93246

== ENCOUNTER → 2023-03-24 13:43 | Outpatient (CLI) | payer MEDICARE, BC, SELFPAY ==
[2020-04-29 12:01] VITALS: BMI 22.5
--- NOTE | 2023-03-24 | DI.RAD.S_ITS ---
PROCEDURE: FL BARIUM SWALLOW INDICATIONS: Disease of esophagus, unspecified COMPARISON: [facility], CT, CT ANGIO CHEST ABDOMEN PELVIS, 04/14/2020, 13:04. [facility], CT, CT SOFT TISSUE NECK W CON, 02/27/2023, 14:07. [facility], CR, XR CHEST 1V, 02/27/2023, 13:43. FINDINGS: Abbreviated examination is performed because of the patient's inability to be in the prone position. There is severe kyphosis. Esophagus is tortuous and severely dilated. There is a large hiatal hernia, most likely a paraesophageal hernia. There is severe esophageal peristalsis. Unable to evaluate gastroesophageal reflux as the examination was only performed in upright position. There is obstruction of the calibrated barium tablet at the distal esophagus. The obstruction is likely caused by mass effect from the large paraesophageal hiatal hernia. The GE junction cannot be visualized as there was only trace oral contrast going through the distal esophagus. IMPRESSION: 1. Limited examination. The patient cannot tolerate prone imaging. 2. Torturous, markedly distended esophagus with severe dysmotility. 3. A large paraesophageal hiatal hernia. 4. Obstruction of a calibrated barium tablet at the distal esophagus. The obstruction is likely caused by mass effect from the large paraesophageal hiatal hernia. There was only trace oral contrast going through the distal esophagus. The GE junction cannot be visualized. Dictated by: Suzy Bonilla M.D. on 03/24/2023 at 17:10 Approved by: Suzy oBnilla M.D. on 03/24/2023 at 20:48
== END ==
PROVIDERS: Family Provider Family Medicine; PCP Family Medicine; Referring Provider Surgery; Visit Provider Surgery
DX: K22.4 Dyskinesia of esophagus (principal); K44.9 Diaphragmatic hernia without obstruction or gangrene
CPT/HCPCS: 74220

== ENCOUNTER → 2023-05-09 13:39 | Outpatient (CLI) | payer MEDICARE, BC, SELFPAY ==
[2020-04-29 12:01] VITALS: BMI 22.5
--- NOTE | 2023-05-09 | DI.CT.S_ITS ---
PROCEDURE: CT CHEST WO CON INDICATIONS: Diaphragmatic hernia TECHNIQUE: Noncontrast 5 mm thick sections acquired from the pulmonary apices to the posterior costophrenic angles. 1 mm lung window, 5 mm thick coronal and sagittal and 7 mm axial MIP reformats were then acquired. For radiation dose reduction, the following was used: automated exposure control, adjustment of mA and/or kV according to patient size. COMPARISON: [facility], MR, MR THORACIC SPINE WO CON, 09/15/2022, 16:10. [facility], RF, FL BARIUM SWALLOW, 03/24/2023, 14:10. [facility], CT, PE STUDY (CTA CHEST), 09/20/2016, 13:02. FINDINGS: Image quality: Excellent. Lungs and pleura: No acute air space opacities. No pleural effusions or pneumothorax. Central and peripheral airways are patent and normal in caliber. Mediastinum: Heart size is mildly enlarged. No pericardial effusion. No mediastinal adenopathy by size criteria. Thoracic aorta and central pulmonary arteries are normal in size. Half the esophagus is markedly dilated, tortuous, and gas filled. The distal esophagus is filled with gas and fluid. There is a large hiatal hernia. Bones and chest wall: No suspicious bony lesions. Multiple severe compression deformities are redemonstrated and are unchanged from the study dated September 15, 2022. No axillary or supraclavicular adenopathy by size criteria. Thyroid gland is grossly unremarkable . Abdomen: Multiple low-density cystic lesions are partially characterized within the liver. The absence of contrast limits evaluation. There is either a partially visualized large left pararenal cyst or left hydronephrosis within the midpole. Visualized upper abdominal solid organs and bowel loops appear otherwise normal in the absence of contrast. IMPRESSION: 1. No acute pulmonary radiopacities or pulmonary nodules. 2. Gas and fluid-filled, patulous, tortuous esophagus with large hiatal hernia. 3. Probable hepatic cysts which are incompletely characterized. If further characterization is warranted, contrast enhanced CT of the abdomen and pelvis is recommended. 4. Questionable left hydronephrosis versus pararenal cyst. Dictated by: Macrina Salmeron M.D. on 05/09/2023 at 14:44 Approved by: Macrina Salmeron M.D. on 05/09/2023 at 15:44
== END ==
PROVIDERS: Family Provider Family Medicine; PCP Family Medicine; Referring Provider Surgery; Visit Provider Surgery
DX: K44.9 Diaphragmatic hernia without obstruction or gangrene (principal); I51.7 Cardiomegaly
CPT/HCPCS: 71250

== ENCOUNTER → 2023-09-07 15:16 | Outpatient (CLI) | payer MEDICARE, BC, SELFPAY ==
[2020-04-29 12:01] VITALS: BMI 22.5
--- NOTE | 2023-09-07 15:19 | DI.RAD.S_ITS ---
PROCEDURE: XR CHEST 2V INDICATIONS: SOB TECHNIQUE: 2 views of the chest were acquired. COMPARISON: [facility], CR, XR CHEST 1V, 02/27/2023, 13:43. FINDINGS: Surgical changes and devices: None. Lungs and pleura: Lungs are clear. No pleural effusions or pneumothorax. Mediastinum: The heart is enlarged, as before. There is a markedly tortuous, very ectatic, gas-filled esophagus which is similar in appearance to the study dated February 27, 2023. Bones and chest wall: No suspicious bony abnormalities. Soft tissues appear unremarkable. IMPRESSION: 1. No acute cardiopulmonary abnormality is seen. 2. Marked ectasia and tortuosity of the gas-filled esophagus likely similar in extent to the study dated February 27, 2023. Dictated by: Macrina Salmeron M.D. on 09/07/2023 at 17:44 Approved by: Macrina Salmeron M.D. on 09/07/2023 at 17:45
[2023-09-07 17:08] LABS: Add Manual Diff / Slide Review NO; Basophils Absolute Auto 0 /uL (0-100); Basophils Percent Auto 0.7 % (0-2); Eosinophils Absolute Auto 200 /uL (0-450); Eosinophils Percent Auto 4.3 % (2-4); Hematocrit 37.9 % (36-46); Hemoglobin 12.5 g/dL (12.0-16.0); Lymphocytes Absolute Auto 1500 /uL (1100-4500); Lymphocytes Percent Auto 26.5 % (25-40); Mean Corpuscular HGB Conc 33.1 % (30-36); Mean Corpuscular Hemoglobin 29.7 PG (26-34); Mean Corpuscular Volume 89.9 fL (80-100); Monocytes Absolute Auto 600 /uL (0-900); Neutrophils Absolute Auto 3300 /uL (1500-7000); Neutrophils Percent Auto 58.5 % (50-75); Platelet Count 176 X10^3/uL (150-400); Red Blood Cell Count 4.22 X10^6/uL (4.0-5.2); Red Cell Distribution Width 14.5 % (11.6-14.8); White Blood Cell Count 5.6 X10^3/uL (4.5-11.0)
[2023-09-07 18:05] LABS: Alanine Aminotransferase 14 IU/L (<35); Albumin 4.4 g/dL (3.5-5.0); Albumin Globulin Ratio 1.5 (1.0-2.8); Alkaline Phosphatase 33 U/L (38-126); Aspartate Aminotransferase 35 IU/L (14-36); BUN Creatinine Ratio 30.7 (6-22); Bilirubin Total 0.6 mg/dL (0.2-1.3); Blood Urea Nitrogen 27 mg/dL (7-17); Calcium 11.1 mg/dL (8.4-10.2); Carbon Dioxide 29 mmol/L (22-32); Chloride 102 mmol/L (98-107); Estimated Glomerular Filt Rate > 60 mL/min (>60); Glucose 88 mg/dL (80-110); HEMOLYSIS < 15 (0-50); Sodium 140 mmol/L (137-145); Total Protein 7.4 g/dL (6.3-8.2)
== END ==
PROVIDERS: Family Provider Family Medicine; PCP Family Medicine; Referring Provider Family Medicine; Visit Provider Family Medicine
DX: R06.02 Shortness of breath (principal); R93.3 Abnormal findings on diagnostic imaging of other parts of digestive tract
CPT/HCPCS: 36415; 71046; 80053; 84443; 85025

== ENCOUNTER 2023-09-22 15:16 | Emergency (ER) | payer MEDICARE, BC, SELFPAY ==
[2020-04-29 12:01] VITALS: BMI 22.5
[2023-09-22] VITALS (12 sets, daily range): BP systolic 180–214; BP diastolic 83–100; PULSE 56–68; RESP 16–27; TEMP 36.3; O2SAT 95–99; BMI 19.5
--- NOTE | 2023-09-22 15:29 | DI.RAD.S_ITS ---
PROCEDURE: XR CHEST 1V INDICATIONS: chest pain TECHNIQUE: One view of the chest was acquired. COMPARISON: [facility], CR, XR CHEST 2V, 09/07/2023, 15:29. [facility], CR, XR CHEST 1V, 02/06/2023, 15:50. FINDINGS: Surgical changes and devices: None. Lungs and pleura: Lungs are clear. No pleural effusions or pneumothorax. Mediastinum: Mediastinal contours appear normal except for the previously present gas dilatation of the entire esophagus extending into the lower neck. Heart size is normal. Bones and chest wall: No suspicious bony lesions. Overlying soft tissues appear unremarkable. IMPRESSION: Prominent tortuosity and gas dilatation of the esophagus as has been previously documented over prior plain films. Achalasia may explain this appearance. Dictated by: Ulises Michel M.D. on 09/22/2023 at 15:56 Approved by: Ulises Michel M.D. on 09/22/2023 at 15:58
--- NOTE | 2023-09-22 15:33 | ED_ITS ---
HPI - General Adult <Susan Vazquez MD - Last Filed: 09/23/23 07:16> General Chief complaint: Hypertension Stated complaint: High BP/sent from DI Time Seen by Provider: 09/22/23 15:27 Source: patient and family Mode of arrival: Wheelchair History of Present Illness HPI narrative: 88-year-old female with history of hypertension, long-term Eliquis use presents from the diagnostic imaging department for elevated blood pressure. Patient was receiving an outpatient echocardiogram for intermittent shortness of breath that she has had for the last several months. While in the echocardiogram section her blood pressure was measured and it was elevated. A subsequent recheck was even higher and they called the patient's primary care doctor's office, who referred her to the emergency department. Patient took half a tablet of her usual Xanax prior to presentation in the emergency department. Patient states she has no symptoms at this time. She denies chest pain, shortness of breath, leg swelling, headache, other complaints at this time. Related Data Home Medications Medication Instructions Recorded Confirmed polyethylene glycol 3350 17 17 gm PO QDAY PRN Constipation ##0 05/03/11 09/05/23 gram/dose oral powder (Miralax) Previous Rx's Medication Instructions Recorded multivitamin (Multiple Vitamins 1 tab PO DAILY #90 tabs 02/23/18 tablet) sodium chloride 0.65 % nasal spray 1 spray intranasal ONCE #60 mL 02/23/18 aerosol ([place] Nasal) apixaban 2.5 mg tablet (Eliquis) 2.5 mg PO BID #60 tabs 02/22/21 Disabled Parking Permit #1 ea 03/07/22 fenofibrate micronized 67 mg See Rx Instructions .Route 02/20/23 capsule .COMPLEX #90 caps metoprolol succinate 50 mg 50 mg PO DAILY #90 tabs 04/05/23 tablet,extended release 24 hr omeprazole 40 mg capsule,delayed See Rx Instructions .Route 07/28/23 release .COMPLEX #90 caps alprazolam 0.5 mg tablet 0.25 mg (1/2 x 0.5 mg) PO TID PRN 08/16/23 anxiety #45 tabs Allergies Allergy/AdvReac Type Severity Reaction Status Date / Time formaldehyde [FORMALDEHYDE] Allergy Mild puffy Verified 09/22/23 15:30 eyes, blurred vision latex [LATEX] Allergy Mild rash Verified 09/22/23 15:30 codeine [CODEINE] AdvReac Mild vomiting Verified 09/22/23 15:30 morphine [MORPHINE] AdvReac Mild vomiting Verified 09/22/23 15:30 Review of Systems <Susan Vazquez MD - Last Filed: 09/23/23 07:16> Review of Systems Narrative: Negative except as noted above Patient History <Susan Vazquez MD - Last Filed: 09/23/23 07:16> Medical History Anxiety (1997) Cervical spine disease Chronic back pain (2004) GERD (gastroesophageal reflux disease) (2007) Hayfever History of ectopic (1971) Iliocostalis syndrome Intercostal neuralgia Kyphosis (2007) L1 vertebral fracture (1964) Lumbar back pain Lumbar spine pain (~1994) 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) Osteoarthritis (~1994) Osteopenia (~1994) Osteoporosis (2007) Parathyroid disease (2007) Recurrent sinusitis Scarlet fever Scoliosis Shoulder pain (2014) Thoracic back pain Tinnitus Vertebral compression fracture Vertigo Surgical History Anesthesia complication History of cataract removal with insertion of prosthetic lens (2011) History of cataract removal with insertion of prosthetic lens (2012) History of repair of hiatal hernia History of salpingectomy Status post breast reduction (1999) Status post bunionectomy (1992) Status post parathyroidectomy (2007) Status post parathyroidectomy (2009) Family History Brother Cancer Father No problems noted. Mother TB (tuberculosis) Social History (Updated 03/17/23 @ 13:07 by Tessa Chan MA) marital status: household members: none occupational status: previously employed Smoking Status: Never smoker second hand exposure: No alcohol intake: current substance use type: does not use Smoking Status: Never smoker alcohol intake frequency: 0-2 drinks per day Substance Use Type: does not use Exam <Susan Vazquez MD - Last Filed: 09/23/23 07:16> Initial Vital Signs Initial Vital Signs: Vital Signs Temperature 97.4 F L 09/22/23 15:22 Pulse Rate 62 09/22/23 15:22 Respiratory Rate 18 09/22/23 15:22 Blood Pressure 180/100 H 09/22/23 15:22 Pulse Oximetry 99 09/22/23 15:22 Oxygen Delivery Method Room Air 09/22/23 15:22 Const: Awake, alert, no acute distress, nontoxic appearing Cardiac: regular rate, regular rhythm RESP: unlabored, clear bilaterally, no wheezing GI: Atraumatic, soft, nontender, nondistended, no rebound, no guarding Skin: Warm, Dry, intact, no rashes Neuro: AO x3, CN II-XII grossly intact, moves all extremities Psych: Slightly anxious, otherwise appropriate for current condition <Malcom Hawthorne DO - Last Filed: 09/22/23 19:12> Initial Vital Signs Initial Vital Signs: Vital Signs Temperature 97.4 F L 09/22/23 15:22 Pulse Rate 62 09/22/23 15:22 Respiratory Rate 18 09/22/23 15:22 Blood Pressure 180/100 H 09/22/23 15:22 Pulse Oximetry 99 09/22/23 15:22 Oxygen Delivery Method Room Air 09/22/23 15:22 Course <Susan Vazquez MD - Last Filed: 09/23/23 07:16> Orders Ordered: ED Orders 09/22/23 15:29 XR chest 1V Stat 09/22/23 15:49 BNP [NT-proBNP (BNP-Adult 18+)] Stat Complete Blood Count AUTO DIFF Stat Comprehensive Metabolic Panel Stat Lipase Stat Magnesium Stat PTT Partial Thromboplastin Minesh Stat Prothrombin Time INR Stat Troponin & CK Cardiac Panel Stat 09/22/23 15:51 EKG-12 Lead Stat 09/22/23 18:00 Troponin I Stat EKG-12 Lead Stat Vital Signs Vital signs: Vital Signs - 8 hr 09/22/23 15:22 09/22/23 15:37 09/22/23 16:00 Temperature 97.4 F L Pulse Rate 62 68 56 L Respiratory Rate 18 Blood Pressure 180/100 H Pulse Oximetry 99 97 Oxygen Delivery Method Room Air 09/22/23 16:30 09/22/23 17:00 09/22/23 17:30 Temperature Pulse Rate 58 L 56 L 62 Respiratory Rate 22 20 Blood Pressure Pulse Oximetry 97 98 97 Oxygen Delivery Method Room Air 09/22/23 18:00 09/22/23 18:17 09/22/23 18:17 Temperature Pulse Rate 63 Respiratory Rate Blood Pressure 182/86 H Pulse Oximetry 97 95 Oxygen Delivery Method <Malcom Hawthorne DO - Last Filed: 09/22/23 19:12> Orders Ordered: ED Orders 09/22/23 15:29 XR chest 1V Stat 09/22/23 15:49 BNP [NT-proBNP (BNP-Adult 18+)] Stat Complete Blood Count AUTO DIFF Stat Comprehensive Metabolic Panel Stat Lipase Stat Magnesium Stat PTT Partial Thromboplastin Minesh Stat Prothrombin Time INR Stat Troponin & CK Cardiac Panel Stat 09/22/23 15:51 EKG-12 Lead Stat 09/22/23 18:00 Troponin I Stat EKG-12 Lead Stat Vital Signs Vital signs: Vital Signs - 8 hr 09/22/23 15:22 09/22/23 15:37 09/22/23 16:00 Temperature 97.4 F L Pulse Rate 62 68 56 L Respiratory Rate 18 Blood Pressure 180/100 H Pulse Oximetry 99 97 Oxygen Delivery Method Room Air 09/22/23 16:30 09/22/23 17:00 09/22/23 17:30 Temperature Pulse Rate 58 L 56 L 62 Respiratory Rate 22 20 Blood Pressure Pulse Oximetry 97 98 97 Oxygen Delivery Method Room Air 09/22/23 18:00 09/22/23 18:17 09/22/23 18:17 Temperature Pulse Rate 63 Respiratory Rate Blood Pressure 182/86 H Pulse Oximetry 97 95 Oxygen Delivery Method Medical Decision Making <Susan Vazquez MD - Last Filed: 09/23/23 07:16> Differential Diagnosis Differential Diagnosis: hypertension, chf, hyponatremia Lab Data 09/22/23 15:49 09/22/23 15:49 Labs: Lab Results 09/22/23 09/22/23 Range/Units 15:49 18:00 WBC 6.4 (4.5-11.0) X10^3/uL RBC 4.01 (4.0-5.2) X10^6/uL Hgb 12.2 (12.0-16.0) g/dL Hct 36.4 (36-46) % MCV 90.8 (80-100) fL MCH 30.4 (26-34) PG MCHC 33.5 (30-36) % RDW 14.4 (11.6-14.8) % Plt Count 169 (150-400) X10^3/uL Neut % (Auto) 60.7 (50-75) % Lymph % (Auto) 25.6 (25-40) % [place] % (Auto) 9.4 (3-14) % Eos % (Auto) 3.4 (2-4) % Baso % (Auto) 0.9 (0-2) % Neut # (Auto) 3900 (9748-4512) /uL Lymph # (Auto) 1600 (8447-7947) /uL [place] # (Auto) 600 (0-900) /uL Eos # (Auto) 200 (0-450) /uL Baso # (Auto) 100 (0-100) /uL PT 13.6 H (9.4-12.5) SECONDS INR 1.2 (0.9-1.3) APTT 37 H (25.1-36.5) SECONDS Sodium 141 (137-145) mmol/L Potassium 4.0 (3.4-5.1) mmol/L Chloride 106 (98-107) mmol/L Carbon Dioxide 26 (22-32) mmol/L BUN 26 H (7-17) mg/dL Creatinine 0.89 (0.52-1.04) mg/dL Estimated GFR > 60 (>60) mL/min BUN/Creatinine Ratio 29.2 H (6-22) Glucose 93 (80-110) mg/dL Calcium 10.4 H (8.4-10.2) mg/dL Magnesium 2.3 (1.6-2.3) mg/dL Total Bilirubin 0.6 (0.2-1.3) mg/dL AST 38 H (14-36) IU/L ALT 14 (<35) IU/L Alkaline Phosphatase 33 L (38-126) U/L Total Creatine Kinase 75 (30-135) U/L Troponin I 0.164 H* 0.184 H* (0.01-0.034) ng/mL NT-Pro-B Natriuret Pep 2280 H (<450) pg/mL Total Protein 7.5 (6.3-8.2) g/dL Albumin 4.3 (3.5-5.0) g/dL Globulin 3.2 (1.7-4.1) g/dL Albumin/Globulin Ratio 1.3 (1.0-2.8) Lipase 163 (23-300) U/L MDM Narrative Medical decision making narrative: Well-appearing patient with hypertension while receiving outpatient study. Echocardiogram results showed no wall motion abnormalities, mild aortic regurgitation and mitral regurgitation. EF 60-65%. Patient's blood pressure 170 systolic on presentation. Patient states that at home her blood pressure is usually very well controlled and she does not have issues with blood pressure. Laboratory work is notable for troponin 0.164. Previously patient's troponin undetectable. Chest x-ray shows gas in the esophagus, unchanged from prior. Other laboratory work within normal limits, normal creatinine and renal function. EKG is sinus rhythm with left bundle-branch block, no Sgarbossa criteria present. Patient continues to rest comfortably in the ED bed, has no complaints. Call placed to on-call Cardiology, who recommended stress test. It is currently Monday afternoon and we do not have stress test over the weekend at our facility. Attempted to reach out to nearby facilities, however currently operating on a wait list. Since patient is currently asymptomatic and there are no ischemic findings we will defer heparin at this time. Patient is on Eliquis daily. Patient's case discussed with on-call Internal Medicine physician Dr. Bergeron, who recommends a 2 hour troponin. If the troponin is elevating then patient would definitely need to be transferred to available facility for stress test. If troponin is stable or downtrending then patient can be discharged home and he will ensure that the patient has stress test within the week. Discussed with patient and son at bedside, they are in agreement with plan. 2 hour troponin pending, care of patient is signed out to Dr. Hawthorne at 1800 <Malcom Hawthorne DO - Last Filed: 09/22/23 19:12> Lab Data Labs: Lab Results 09/22/23 09/22/23 Range/Units 15:49 18:00 WBC 6.4 (4.5-11.0) X10^3/uL RBC 4.01 (4.0-5.2) X10^6/uL Hgb 12.2 (12.0-16.0) g/dL Hct 36.4 (36-46) % MCV 90.8 (80-100) fL MCH 30.4 (26-34) PG MCHC 33.5 (30-36) % RDW 14.4 (11.6-14.8) % Plt Count 169 (150-400) X10^3/uL Neut % (Auto) 60.7 (50-75) % Lymph % (Auto) 25.6 (25-40) % [place] % (Auto) 9.4 (3-14) % Eos % (Auto) 3.4 (2-4) % Baso % (Auto) 0.9 (0-2) % Neut # (Auto) 3900 (1095-3605) /uL Lymph # (Auto) 1600 (7324-0897) /uL [place] # (Auto) 600 (0-900) /uL Eos # (Auto) 200 (0-450) /uL Baso # (Auto) 100 (0-100) /uL PT 13.6 H (9.4-12.5) SECONDS INR 1.2 (0.9-1.3) APTT 37 H (25.1-36.5) SECONDS Sodium 141 (137-145) mmol/L Potassium 4.0 (3.4-5.1) mmol/L Chloride 106 (98-107) mmol/L Carbon Dioxide 26 (22-32) mmol/L BUN 26 H (7-17) mg/dL Creatinine 0.89 (0.52-1.04) mg/dL Estimated GFR > 60 (>60) mL/min BUN/Creatinine Ratio 29.2 H (6-22) Glucose 93 (80-110) mg/dL Calcium 10.4 H (8.4-10.2) mg/dL Magnesium 2.3 (1.6-2.3) mg/dL Total Bilirubin 0.6 (0.2-1.3) mg/dL AST 38 H (14-36) IU/L ALT 14 (<35) IU/L Alkaline Phosphatase 33 L (38-126) U/L Total Creatine Kinase 75 (30-135) U/L Troponin I 0.164 H* 0.184 H* (0.01-0.034) ng/mL NT-Pro-B Natriuret Pep 2280 H (<450) pg/mL Total Protein 7.5 (6.3-8.2) g/dL Albumin 4.3 (3.5-5.0) g/dL Globulin 3.2 (1.7-4.1) g/dL Albumin/Globulin Ratio 1.3 (1.0-2.8) Lipase 163 (23-300) U/L ECG Data Interpretation: Initial EKG Sinus rhythm Ventricular rate of 67 Occasional PVCs Left bundle-branch block No ischemic changes Repeat EKG Sinus bradycardia Ventricular rate of 58 Left bundle-branch block No ischemic changes MDM Narrative Medical decision making narrative: Well-appearing patient with hypertension while receiving outpatient study. Echocardiogram results showed no wall motion abnormalities, mild aortic regurgitation and mitral regurgitation. EF 60-65%. Patient's blood pressure 170 systolic on presentation. Patient states that at home her blood pressure is usually very well controlled and she does not have issues with blood pressure. Laboratory work is notable for troponin 0.164. Previously patient's troponin undetectable. Chest x-ray shows gas in the esophagus, unchanged from prior. Other laboratory work within normal limits, normal creatinine and renal function. EKG is sinus rhythm with left bundle-branch block, no Sgarbossa criteria present. Patient continues to rest comfortably in the ED bed, has no complaints. Call placed to on-call Cardiology, who recommended stress test. It is currently Monday afternoon and we do not have stress test over the weekend at our facility. Attempted to reach out to nearby facilities, however currently operating on a wait list. Since patient is currently asymptomatic and there are no ischemic findings we will defer heparin at this time. Patient is on Eliquis daily. Patient's case discussed with on-call Internal Medicine physician Dr. Bergeron, who recommends a 2 hour troponin. If the troponin is elevating then patient would definitely need to be transferred to available facility for stress test. If troponin is stable or downtrending then patient can be discharged home and he will ensure that the patient has stress test within the week. Discussed with patient and son at bedside, they are in agreement with plan. 2 hour troponin pending, care of patient is signed out to Dr. Hawthorne at [address] Dr hawthorne: Received turned over. Review patient's history and physical exam and workup up to this point. Plan that was turned over to me would be a repeat EKG that is unchanged and repeat troponin which is also unchanged and if this is the scenario the patient will be discharged home. I did discuss the case with Dr. Bergeron he was on-call for the patient's primary doctor stated that he can help with arrangement of a stress test early next week. I discussed this with the patient's son who is at bedside and also the patient. If they have not heard from their primary doctor's office by noon on Monday they will contact the primary doctor's office. We discussed specific return precautions. They expressed understanding and agreement with plan. Discharge Plan Departure Patient Disposition: Home Clinical Impression: Hypertension Instructions: DI for High Blood Pressure Activity Restrictions/Additional Instructions: Continue to take all of your medications as directed. You should receive a phone call from your primary doctor's office on Monday of next week. If you have not heard from them by noon contact them for a follow-up so that you can get the outpatient stress test scheduled for the beginning of next week. Until then return to the emergency department for new or worsening symptoms. Prescriptions: No Action Eliquis 2.5 mg tablet 2.5 mg PO BID Qty: 60 0RF polyethylene glycol 3350 [Miralax] 119 GM powder 17 gm PO QDAY PRN (Reason: Constipation) Qty: 0 (DME) Disabled Parking Permit See Rx Instructions .Route .MEDSUPPLY Qty: 1 0RF Rx Instructions: Pt would benefit from disabled parking due to medical conditions. Pt has Severe Kyphosis, is unable to stand upright. fenofibrate micronized 67 mg capsule See Rx Instructions .ROUTE .COMPLEX Qty: 90 3RF Dose Instruction: TAKE 1 CAPSULE BY MOUTH EVERY DAY Rx Instructions: TAKE 1 CAPSULE BY MOUTH EVERY DAY metoprolol succinate 50 mg tablet extended release 24 hr 50 mg PO DAILY Qty: 90 3RF omeprazole 40 mg capsule,delayed release(DR/EC) See Rx Instructions .ROUTE .COMPLEX Qty: 90 3RF Dose Instruction: TAKE 1 CAPSULE BY MOUTH EVERY DAY Rx Instructions: TAKE 1 CAPSULE BY MOUTH EVERY DAY alprazolam 0.5 mg tablet 0.25 mg PO TID PRN (Reason: anxiety) Qty: 45 0RF multivitamin [Multiple Vitamins] tablet 1 tab PO DAILY Qty: 90 0RF sodium chloride [[place] Nasal] 0.65 % aerosol,spray 1 spray NASAL ONCE Qty: 60 0RF Referrals: Naheed Pinzon MD [Primary Care Provider] - Stand Alone Forms: Patient Portal/API
--- NOTE | 2023-09-22 15:55 | PC.NURSE ---
Pt getting outpt echo done today because she has been having ongoing SOB. Pt was sent to ED for further evaluation because her bp was high. Pt states that she has a hx of HTN and takes metoprolol. Pt denies any sob or cp and states that she has no other sx. 1+ non-pitting edema on bilateal ankles. Pt a&ox4 and is accompanied by her son.
[2023-09-22 15:59] LABS: Add Manual Diff / Slide Review NO; Basophils Absolute Auto 100 /uL (0-100); Basophils Percent Auto 0.9 % (0-2); Eosinophils Absolute Auto 200 /uL (0-450); Eosinophils Percent Auto 3.4 % (2-4); Hematocrit 36.4 % (36-46); Hemoglobin 12.2 g/dL (12.0-16.0); Lymphocytes Absolute Auto 1600 /uL (1100-4500); Lymphocytes Percent Auto 25.6 % (25-40); Mean Corpuscular HGB Conc 33.5 % (30-36); Mean Corpuscular Hemoglobin 30.4 PG (26-34); Mean Corpuscular Volume 90.8 fL (80-100); Monocytes Absolute Auto 600 /uL (0-900); Monocytes Percent Auto 9.4 % (3-14); Neutrophils Absolute Auto 3900 /uL (1500-7000); Neutrophils Percent Auto 60.7 % (50-75); Platelet Count 169 X10^3/uL (150-400); Red Blood Cell Count 4.01 X10^6/uL (4.0-5.2); Red Cell Distribution Width 14.4 % (11.6-14.8); White Blood Cell Count 6.4 X10^3/uL (4.5-11.0)
[2023-09-22 16:06] LABS: INR 1.2 (0.9-1.3); Prothrombin Time 13.6 SECONDS (9.4-12.5)
[2023-09-22 16:08] LABS: PTT Partial Thromboplastin Tim 37 SECONDS (25.1-36.5)
[2023-09-22 16:09] LABS: Alanine Aminotransferase 14 IU/L (<35); Albumin 4.3 g/dL (3.5-5.0); Albumin Globulin Ratio 1.3 (1.0-2.8); Alkaline Phosphatase 33 U/L (38-126); Aspartate Aminotransferase 38 IU/L (14-36); BUN Creatinine Ratio 29.2 (6-22); Bilirubin Total 0.6 mg/dL (0.2-1.3); Blood Urea Nitrogen 26 mg/dL (7-17); Calcium 10.4 mg/dL (8.4-10.2); Carbon Dioxide 26 mmol/L (22-32); Chloride 106 mmol/L (98-107); Creatine Kinase 75 U/L (30-135); Estimated Glomerular Filt Rate > 60 mL/min (>60); Globulin 3.2 g/dL (1.7-4.1); Glucose 93 mg/dL (80-110); HEMOLYSIS 23 (0-50); Lipase 163 U/L (23-300); Magnesium 2.3 mg/dL (1.6-2.3); Sodium 141 mmol/L (137-145); Total Protein 7.5 g/dL (6.3-8.2)
[2023-09-22 16:17] LABS: NT-proBNP (BNP-Adult 18+) 2280 pg/mL (<450)
[2023-09-22 16:47] LABS: Troponin I 0.164 ng/mL (0.01-0.034)
[2023-09-22 18:35] LABS: Troponin I 0.184 ng/mL (0.01-0.034)
== END 2023-09-22 19:30 | disposition home or self-care (01) ==
PROVIDERS: Emergency Medicine; Emergency Provider Emergency Medicine; Family Provider Family Medicine; PCP Family Medicine
DX: I10 Essential (primary) hypertension (principal); Z79.01 Long term (current) use of anticoagulants
CPT/HCPCS: 36415; 71045; 80053; 82550; 83690; 83735; 83880; 84484; 85025; 85610; 85730; 93005; 93010; 93306; 99283; 99284

== ENCOUNTER → 2023-11-10 09:43 | Outpatient (CLI) | payer MEDICARE, BC, SELFPAY ==
[2020-04-29 12:01] VITALS: BMI 22.5
--- NOTE | 2023-11-10 09:44 | DI.NM.S_ITS ---
PROCEDURE: NM AUDREY PERF SPECT R&S PHARM Rest and pharmacological stress myocardial perfusion SPECT with gated imaging and ejection fraction RADIOPHARMACEUTICAL: 11.5 mCi Tc-99m tetrafosmin IV at rest and 24.8 mCi Tc-99m tetrafosmin IV at peak effect of pharmacological stress. [id number] was performed. INDICATIONS: shortness of breath TECHNIQUE: Radiopharmaceutical was injected at peak stress test, and also at rest. SPECT images were obtained. SPECT myocardial perfusion images were displayed in short axis, horizontal long axis, and vertical long axis views. Gated images were reviewed using OneTrueFan software. COMPARISON: None. CARDIAC STRESS: A pharmacologic stress test was performed under the supervision of an attending staff, using an infusion of lexiscan 0.4mg IV X1. Hemodynamic data: There is normal blood pressure and heart rate response to pharmacologic stress. Symptoms: The patient denied anginal chest pain. Aminophylline: none EKG: Resting ECG showed sinus rhythm with LBBB. Occasional PACs present. FINDINGS: Raw data: There is good myocardial uptake of radiotracer. No significant motion artifacts. Left ventricle function: Gated images demonstrate normal left ventricular wall thickening. No segmental wall motion abnormalities. No transient ischemic dilation; TID is 0.83 (normal less than 1.3). Left ventricle resting end diastolic volume is 84 mL. Left ventricle stress ejection fraction is 85%; normal range is above 45%. Myocardial perfusion: Mildly intense inferior wall defect that improves with stress suggesting artifact but small old non-transmural infarction can't be definitively excluded. Mildly intense fixed basal to mid lateral wall defect that is consistent with prior non-transmural infarction with no deandre-infarct ischemia. No prone images available for comparison. IMPRESSION: Abnormal pharm nuclear stress test consistent with prior infarction. 1) Mildly intense fixed basal to mid lateral wall defect that is consistent with prior non-transmural infarction with no deandre-infarct ischemia. Mildly intense inferior wall defect stress that improves with stress suggesting artifact but small old non-transmural infarction can't be definitively excluded. No prone images obtained due to patient's inability to do prone imaging. 2) Normal left ventricular size, wall motion, and systolic function (EF post stress 85%). 3) ECG non-diagnostic due to baseline LBBB. 4) No angina during the study. 5) Compared to the nuclear stress test done 03/14/2023, perfusion defects described above are new on this study. Dictated by: Viri Plascencia MD on 11/10/2023 at 16:57 Approved by: Viri Plascencia MD on 11/10/2023 at 17:04
== END ==
PROVIDERS: Family Provider Family Medicine; PCP Family Medicine; Referring Provider Family Medicine; Visit Provider Family Medicine
DX: R94.39 Abnormal result of other cardiovascular function study (principal); R06.02 Shortness of breath
CPT/HCPCS: 78452; 93017; A9502; J2785

== ENCOUNTER → 2023-12-05 14:53 | Outpatient (CLI) | payer MEDICARE, BC, SELFPAY ==
[2020-04-29 12:01] VITALS: BMI 22.5
[2023-12-05 15:57] LABS: BUN Creatinine Ratio 31.8 (6-22); Blood Urea Nitrogen 27 mg/dL (7-17); Carbon Dioxide 28 mmol/L (22-32); Chloride 107 mmol/L (98-107); Estimated Glomerular Filt Rate > 60 mL/min (>60); Glucose 83 mg/dL (80-110); HEMOLYSIS < 15 (0-50); Potassium 4.2 mmol/L (3.4-5.1); Sodium 142 mmol/L (137-145)
== END ==
PROVIDERS: Family Provider Family Medicine; PCP Family Medicine; Referring Provider Internal Medicine Cardiovascular Disease; Visit Provider Internal Medicine Cardiovascular Disease
DX: I50.30 Unspecified diastolic (congestive) heart failure (principal)
CPT/HCPCS: 36415; 80048

== ENCOUNTER 2024-02-15 16:40 | Emergency (ER) | payer MEDICARE, BC, SELFPAY ==
[2020-04-29 12:01] VITALS: BMI 22.5
[2024-02-15 17:10] VITALS: BP 216/108; PULSE 71; RESP 16; TEMP 36.6; O2SAT 96; BMI 20.9
--- NOTE | 2024-02-15 17:20 | PC.NURSE ---
Pt case discussed w/ MD Kc about GLF on blood thinners. Pt endorses wanting imaging despite hospice status. Awaiting orders. -- Jamia Rhodes RN
--- NOTE | 2024-02-15 17:33 | DI.CT.S_ITS ---
PROCEDURE: CT HEAD/BRAIN WO CON INDICATIONS: GLF, on blood thinners TECHNIQUE: Noncontrast 4.5 mm thick angled axial sections acquired from the foramen magnum to the vertex, with coronal and sagittal reformats. For radiation dose reduction, the following was used: automated exposure control, adjustment of mA and/or kV according to patient size. COMPARISON: [facility], CT, HEAD WITHOUT CONTRAST, 09/17/2016, 13:26. FINDINGS: Image quality: Diagnostic. CSF spaces: Basal cisterns are patent. No extra-axial fluid collections. The ventricles are symmetric in size and shape. Brain: No intracranial bleeds or masses. There is cerebral volume loss for age, with resultant ventricular and sulcal prominence. There are periventricular and deep white matter chronic small vessel ischemic changes. There is intracranial internal carotid artery atherosclerosis. Skull and face: Calvarium and visualized facial bones appear intact, without suspicious lesions. Sinuses: Visualized sinuses and mastoids are clear. IMPRESSION: No acute intracranial pathology. Dictated by: Blaise Chavez M.D. on 02/15/2024 at 17:27 Approved by: Blaise Chavez M.D. on 02/15/2024 at 17:28
--- NOTE | 2024-02-15 17:34 | DI.CT.S_ITS ---
PROCEDURE: CT THORACIC SPINE WO CON INDICATIONS: back pain, GLF TECHNIQUE: Noncontrast 3 mm thick sections acquired through the region of interest in the thoracic spine. Sagittal and coronal reformats were then constructed. For radiation dose reduction, the following was used: automated exposure control. COMPARISON: [facility], CT, CT CHEST WO CON, 05/09/2023, 13:42. FINDINGS: Image quality: Excellent. Bones: Levo scoliotic curvature. Diffusely decreased osseous mineralization. No suspicious sclerotic or lytic bony lesions. Mild multilevel degenerative changes. Stable compression deformities of T8, T11 and T12, most severe at T12. Schmorl's node versus mild compression of the superior endplate of T3 is stable. No new compression deformities. Central spinal canal is of normal overall caliber. Soft tissues: No paravertebral masses or hematomas. Visualized posteromedial lungs appear clear. Mild dependent atelectasis. Postoperative changes from esophagectomy and gastric pull-up. Atherosclerotic vascular calcifications. Multiple hypodensities throughout the liver, likely simple cysts, similar to prior. IMPRESSION: Redemonstration of chronic compression deformities, most severe at T12. No new compression deformities are seen. Dictated by: Blaise Chavez M.D. on 02/15/2024 at 17:35 Approved by: Blaise Chavez M.D. on 02/15/2024 at 17:39
--- NOTE | 2024-02-15 17:34 | DI.CT.S_ITS ---
PROCEDURE: CT CERVICAL SPINE WO CON INDICATIONS: GLF back pain TECHNIQUE: Noncontrast 3 mm thick sections acquired from the skull base to the T4 level. Sagittal and coronal reformats were then constructed. For radiation dose reduction, the following was used: automated exposure control, adjustment of mA and/or kV according to patient size. COMPARISON: None. FINDINGS: Image quality: Excellent. Bones: No fractures or dislocations. Multilevel degenerative changes of the cervical spine, most pronounced at C6-C7. Diffusely decreased osseous mineralization. Visualized superior ribs are intact. Soft tissues: Prevertebral soft tissues are normal in thickness. No paravertebral hematomas. No apical pneumothoraces. IMPRESSION: No displaced fracture or traumatic subluxation. Dictated by: Blaise Chavez M.D. on 02/15/2024 at 17:29 Approved by: Blaise Chavez M.D. on 02/15/2024 at 17:34
--- NOTE | 2024-02-15 17:35 | DI.CT.S_ITS ---
PROCEDURE: CT LUMBAR SPINE WO CON INDICATIONS: back pain TECHNIQUE: Noncontrast 3 mm thick sections acquired from the T12 level to the sacrum. Sagittal and coronal reformats were constructed. For radiation dose reduction, the following was used: automated exposure control. COMPARISON: [facility], CT, CT ANGIO CHEST ABDOMEN PELVIS, 04/14/2020, 13:04. [facility], MR, MR LUMBAR SPINE WO CON, 09/15/2022, 16:39. FINDINGS: Image quality: Excellent. Bones: Dextroscoliotic curvature. Severe degenerative changes of the lumbar spine. Mild compression of the superior endplate of L4 stable. No acute vertebral body compression fractures. No suspicious lytic or blastic bony lesions. No pars defects. Diffusely decreased osseous mineralization. Soft tissues: No retroperitoneal masses or hematomas. Visualized aorta is normal in caliber. Atherosclerotic vascular calcifications. Partially visualized cystic structure within the pelvis measuring 4.9 cm with internal calcifications. This previously measured 3.8 cm IMPRESSION: No acute lumbar spine fractures. Redemonstration of severe degenerative changes with dextroscoliotic curvature. Partially visualized cystic structure within the pelvis measuring 4.9 cm with internal calcifications. This is increased in size compared to prior, previously measuring 3.8 cm. Recommend nonurgent pelvic ultrasound for further evaluation. Dictated by: Blaise Chavez M.D. on 02/15/2024 at 17:39 Approved by: Blaise Chavez M.D. on 02/15/2024 at 17:44
--- NOTE | 2024-02-15 17:50 | PC.NURSE ---
Pt son states hospice doctor expressed do whatever you need to do; the MD's will figure the rest out while in ED. Pt son states they will have to refill out the hospice papers at midnight.
[2024-02-15 18:00] VITALS: BP 209/96; PULSE 62; O2SAT 97
--- NOTE | 2024-02-15 18:49 | ED.FALL ---
HPI - Fall General Chief Complaint: Fall Stated Complaint: GLF, ? bloodthinner Time Seen by Provider: 02/15/24 17:33 History of Present Illness HPI Narrative: Patient 89-year-old female history of atrial fibrillation on Eliquis, severe kyphosis currently in hospice for significantly dilated esophagus. Presents today with a trip and fall. She is with her son who states that she was out in the garden when she got up and was walking back into the house. She was walking up the driveway son was right behind her she stumbled and fell backwards. The son was able to catch her head so she did not hit her head or lose consciousness. But does have some back pain. She has previously had numerous compression fractures. Related Data Home Medications Medication Instructions Recorded Confirmed polyethylene glycol 3350 17 17 gm PO QDAY PRN Constipation ##0 05/03/11 11/27/23 gram/dose oral powder (Miralax) Previous Rx's Medication Instructions Recorded multivitamin (Multiple Vitamins 1 tab PO DAILY #90 tabs 02/23/18 tablet) sodium chloride 0.65 % nasal spray 1 spray intranasal ONCE #60 mL 02/23/18 aerosol (Sierra Nasal) apixaban 2.5 mg tablet (Eliquis) 2.5 mg PO BID #60 tabs 02/22/21 Disabled Parking Permit #1 ea 03/07/22 fenofibrate micronized 67 mg See Rx Instructions .Route 02/20/23 capsule .COMPLEX #90 caps metoprolol succinate 50 mg 50 mg PO DAILY #90 tabs 04/05/23 tablet,extended release 24 hr omeprazole 40 mg capsule,delayed See Rx Instructions .Route 07/28/23 release .COMPLEX #90 caps alprazolam 0.5 mg tablet 0.25 mg (1/2 x 0.5 mg) PO TID PRN 12/15/23 anxiety #45 tabs Allergies Allergy/AdvReac Type Severity Reaction Status Date / Time formaldehyde [FORMALDEHYDE] Allergy Mild puffy Verified 11/27/23 16:08 eyes, blurred vision latex [LATEX] Allergy Mild rash Verified 11/27/23 16:08 codeine [CODEINE] AdvReac Mild vomiting Verified 11/27/23 16:08 morphine [MORPHINE] AdvReac Mild vomiting Verified 11/27/23 16:08 Patient History Medical History Iliocostalis syndrome Vertebral compression fracture Intercostal neuralgia Lumbar back pain Thoracic back pain L1 vertebral fracture (1965) Kyphosis (2008) Shoulder pain (2014) Lumbar spine pain (~1994) Cervical spine disease Scarlet fever Recurrent sinusitis History of ectopic (1971) GERD (gastroesophageal reflux disease) (2007) Tinnitus Vertigo Scoliosis Chronic back pain (2004) Osteopenia (~1994) Osteoporosis (2007) Anxiety (1997) Hayfever Osteoarthritis (~1994) 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 Mother TB (tuberculosis) Social History marital status: household members: none occupational status: previously employed Smoking Status: Never smoker second hand exposure: No alcohol intake: current substance use type: does not use Smoking Status: Never smoker alcohol intake frequency: 0-2 drinks per day Substance Use Type: does not use Exam Initial Vital Signs Initial Vital Signs: Vital Signs Temperature 97.8 F 02/15/24 17:10 Pulse Rate 71 02/15/24 17:10 Respiratory Rate 16 02/15/24 17:10 Blood Pressure 216/108 H 02/15/24 17:10 Pulse Oximetry 96 02/15/24 17:10 Oxygen Delivery Method Room Air 02/15/24 17:10 GENERAL: Alert pleasant 81-year-old female HEENT: Head atraumatic,EOMI, pupils reactive, face symmetric, moist mucous membranes NECK: Supple no significant tenderness goiter noted CARDIOVASCULAR: Regular rate and rhythm without murmurs, rubs or gallops. RESPIRATORY: Breath sounds equal bilaterally, no wheezes rales or rhonchi. ABDOMEN: Soft, nontender. Normoactive bowel sounds all 4 quadrants. No guarding or rebound. BACK: Significant kyphosis noted she does have some erythema in the lower lumbar thoracic area but no obvious step-offs no lacerations EXTREMITIES: Normal range of motion, no clubbing or edema. Neurovascularly intact NEUROLOGICAL: Alert and oriented x4.Normal gait and speech. SKIN: Warm, dry, no laceration, no petechiae, no rashes or lesions. Course Orders Ordered: ED Orders 02/15/24 17:33 CT head/brain wo con Stat 02/15/24 17:34 CT cervical spine wo con Stat CT thoracic spine wo con Stat 02/15/24 17:35 CT lumbar spine wo con Stat Discontinued Medications Acetaminophen (Acetaminophen 325 Mg Tablet) 975 mg PO NOW ONE Stop: 02/15/24 18:57 Last Admin: 02/15/24 19:07 Dose: 975 mg Documented By: BRIAN Vital Signs Vital signs: Vital Signs - 8 hr 02/15/24 17:10 02/15/24 18:00 02/15/24 19:17 Temperature 97.8 F Pulse Rate 71 62 65 Respiratory Rate 16 16 Blood Pressure 216/108 H 209/96 H 191/101 H Pulse Oximetry 96 97 97 Oxygen Delivery Method Room Air Room Air Room Air MDM - Fall MDM Narrative Medical decision making narrative: Patient jhony 81-year-old female who was recently admitted to hospice for significantly distended esophagus severe kyphosis on Eliquis presents today after mechanical trip and fall. No loss of consciousness or significant head injury. Extensive imaging including CT of the whole spine not show any abnormality, thoracic CT does show chronic compression deformities most severe T12 no new compression deformity Patient ambulated to the restroom without significant distress She is given Tylenol here in the ED Discharge Plan Departure Patient Disposition: Home Clinical Impression: Fall Instructions: How to Prevent Falls Activity Restrictions/Additional Instructions: *You have been diagnosed with fall *What to do: At this time no evidence of new fractures *Continue to take medications as directed Tylenol as needed for pain *Follow up with your primary care provider in 2-3 days or call [phone] *Return to ER if you should have increasing pain confusion nausea vomiting or any new, worsening or concerning symptoms Prescriptions: No Action Eliquis 2.5 mg tablet 2.5 mg PO BID Qty: 60 0RF polyethylene glycol 3350 [Miralax] 119 GM powder 17 gm PO QDAY PRN (Reason: Constipation) Qty: 0 (DME) Disabled Parking Permit See Rx Instructions .Route .MEDSUPPLY Qty: 1 0RF Rx Instructions: Pt would benefit from disabled parking due to medical conditions. Pt has Severe Kyphosis, is unable to stand upright. fenofibrate micronized 67 mg capsule See Rx Instructions .ROUTE .COMPLEX Qty: 90 3RF Dose Instruction: TAKE 1 CAPSULE BY MOUTH EVERY DAY Rx Instructions: TAKE 1 CAPSULE BY MOUTH EVERY DAY metoprolol succinate 50 mg tablet extended release 24 hr 50 mg PO DAILY Qty: 90 3RF omeprazole 40 mg capsule,delayed release(DR/EC) See Rx Instructions .ROUTE .COMPLEX Qty: 90 3RF Dose Instruction: TAKE 1 CAPSULE BY MOUTH EVERY DAY Rx Instructions: TAKE 1 CAPSULE BY MOUTH EVERY DAY alprazolam 0.5 mg tablet 0.25 mg PO TID PRN (Reason: anxiety) Qty: 45 0RF multivitamin [Multiple Vitamins] tablet 1 tab PO DAILY Qty: 90 0RF sodium chloride [Sierra Nasal] 0.65 % aerosol,spray 1 spray NASAL ONCE Qty: 60 0RF Referrals: Naheed Pinzon MD [Primary Care Provider] - Stand Alone Forms: Patient Portal/API
[2024-02-15] MEDS: ACETAMINOPHEN 325 MG TABLET 975 MG PO (19:07)
[2024-02-15 19:17] VITALS: BP 191/101; PULSE 65; RESP 16; O2SAT 97
== END 2024-02-15 19:19 | disposition home or self-care (01) ==
PROVIDERS: Emergency Provider Emergency Medicine; Family Provider Family Medicine; PCP Family Medicine
DX: M54.9 Dorsalgia, unspecified (principal); W18.30XA Fall on same level, unspecified, initial encounter; Z79.01 Long term (current) use of anticoagulants
CPT/HCPCS: 70450; 72125; 72128; 72131; 99283; 99284